=== PATIENT | male | born 1950 | race Caucasian/White ===

== ENCOUNTER 2018-01-12 16:12 | Inpatient (IN) | payer BC, MEDICARE ==
[~2018-01-12] VITALS: Ht 170.2 cm; Wt 85.7 kg
[~2018-01-12 16:12] MED LIST: ANTACID EXTRA1 EACH; BAYER ASPIRIN325 MG PO; SERTRALINE HCL50 MG PO; Z CO Q PO; Z.0.AMLODIPINE BESYL PO; Z.0.CLOPIDOGREL75 MG PO; Z.0.LISINOPRIL40 MG PO; Z.0.METOPROLOL TART2 PO; Z.0.NITROGLYCERIN0.4 SL; Z.0.PRAVASTATIN SOD8 PO; [UNRECOGNIZED DRUG - OTHER] PO
[2018-01-12] MEDS ORDERED: SODIUM CHLORIDE 0.9% 1000ML 1,000 ML IV STA (16:28)
[2018-01-12] MEDS ORDERED: HEPARIN SOD (PORCINE) 5,000 UNIT/ML VIAL IV ONE (16:30)
[2018-01-12] MEDS ORDERED: ASPIRIN 81 MG CHEW TAB PO ONE (16:30)
[2018-01-12] MEDS ORDERED: ONDANSETRON HCL INJ 2 MG/ML VIAL IV PRN (16:45)
[2018-01-12 17:02] LABS: BASOPHILS # (AUTO) 0.1 (0.0-0.1); BASOPHILS % 0.4 % (0.0-1.0); EOSINOPHILS # (AUTO) 0.1 (0.0-0.4); HEMATOCRIT 38.7 % (38.2-49.6); HEMOGLOBIN 12.8 g/dL (14.0-18.0); LYMPHOCYTES # (AUTO) 1.8 (1.0-3.2); LYMPHOCYTES % 13.6 % (18.0-39.1); MEAN CORPUSCULAR HEMOGLOBIN 29.6 pg (28-32); MEAN CORPUSCULAR HGB CONC 33.1 g/dL (31-35); MEAN CORPUSCULAR VOLUME 89.6 fL (81-99); MONOCYTES # (AUTO) 0.9 (0.2-0.8); MONOCYTES % 6.6 % (4.4-11.3); NEUTROPHILS # (AUTO) 10.4 (2.1-6.9); NEUTROPHILS % 77.9 % (38.7-80.0); PLATELET COUNT 307 x10e3/uL (140-360); RED BLOOD COUNT 4.32 x10e6/uL (4.3-5.7); RED CELL DISTRIBUTION WIDTH 13.4 % (11.7-14.4)
[2018-01-12 17:12] LABS: INR 1.03; PROTHROMBIN TIME 12.7 seconds (11.9-14.5)
[2018-01-12 17:13] LABS: PARTIAL THROMBOPLASTIN TIME 25.8 seconds (23.8-35.5)
[2018-01-12 17:22] LABS: ALBUMIN 3.7 g/dL (3.5-5.0); ANION GAP 16.2 mmol/L (8-16); CALCIUM 9.2 mg/dL (8.4-10.2); CREATINE KINASE 84 IU/L (30-200); CREATININE, SERUM 1.34 mg/dL (0.72-1.25); POTASSIUM 4.2 mmol/L (3.5-5.1)
[2018-01-12 17:28] LABS: CREATINE KINASE MB 1.5 ng/mL (0-5.0)
[2018-01-12] MEDS ORDERED: HEPARIN SOD (PORCINE) 1000 UNIT/ML SDV IV ONE (17:30)
[2018-01-12] MEDS ORDERED: HEPARIN SOD (PORCINE) 1000 UNIT/ML SDV ONE (17:34)
[2018-01-12] MEDS: HEPARIN 25,000U/0.45% NS 250ML 1,300 UNIT in SODIUM CHLORIDE 0.9% 250ML 0 ML IV SCH (17:38)
--- NOTE | 2018-01-12 18:05 | Diagnostic Imaging Report ---
EXAMINATION: CHEST SINGLE (PORTABLE) INDICATION: \S\ERMD ORDER \S\[id number] \S\1710 \S\Y COMPARISON: Chest radiograph 02/15/2012 FINDINGS: AP view TUBES and LINES: 2-lead pacemaker overlying the left upper chest with leads overlying the right atrial appendage and right ventricle. LUNGS: Lungs are well inflated. Lungs are clear. There is no evidence of pneumonia or pulmonary edema. PLEURA: No pleural effusion or pneumothorax. HEART AND MEDIASTINUM: Mildly prominent cardiac silhouette, appears increased since last exam. BONES AND SOFT TISSUES: No acute osseous lesion. Soft tissues are unremarkable. UPPER ABDOMEN: No free air under the diaphragm. IMPRESSION: Prominent cardiac silhouette without pulmonary decompensation. Signed by: Dr. Flakita Beal M.D. on 01/12/2018 6:01 PM
[2018-01-12 19:56] VITALS: BP 137/88
[2018-01-12 20:00] VITALS: BP 137/88
[2018-01-12 21:30] VITALS: BP 137/88
[2018-01-13] VITALS (7 sets, daily range): BP systolic 135–174; BP diastolic 78–95
[2018-01-13 01:18] LABS: CREATINE KINASE MB 1.2 ng/mL (0-5.0)
[2018-01-13 05:17] LABS: BASOPHILS # (AUTO) 0.1 (0.0-0.1); BASOPHILS % 0.7 % (0.0-1.0); EOSINOPHILS # (AUTO) 0.2 (0.0-0.4); EOSINOPHILS % 2.2 % (0.0-6.0); HEMATOCRIT 38.5 % (38.2-49.6); HEMOGLOBIN 12.4 g/dL (14.0-18.0); LYMPHOCYTES # (AUTO) 2.4 (1.0-3.2); MEAN CORPUSCULAR HEMOGLOBIN 29.3 pg (28-32); MEAN CORPUSCULAR HGB CONC 32.2 g/dL (31-35); MONOCYTES # (AUTO) 0.8 (0.2-0.8); NEUTROPHILS # (AUTO) 6.7 (2.1-6.9); NEUTROPHILS % 65.7 % (38.7-80.0); PLATELET COUNT 267 x10e3/uL (140-360); RED BLOOD COUNT 4.23 x10e6/uL (4.3-5.7); RED CELL DISTRIBUTION WIDTH 13.5 % (11.7-14.4)
[2018-01-13 05:39] LABS: ANION GAP 13.7 mmol/L (8-16); BLOOD UREA NITROGEN 19 mg/dL (7-26); BUN/CREATININE RATIO 19 (6-25); CALCIUM 9.1 mg/dL (8.4-10.2); CARBON DIOXIDE 25 mmol/L (22-29); CHLORIDE 107 mmol/L (98-107); CREATININE, SERUM 1.02 mg/dL (0.72-1.25); EST GLOMERULAR FILTRATION RATE > 60 ML/MIN (60-); GLUCOSE 109 mg/dL (74-118); POTASSIUM 4.7 mmol/L (3.5-5.1); SODIUM 141 mmol/L (136-145)
[2018-01-13 08:30] LABS: CREATINE KINASE MB 1.1 ng/mL (0-5.0)
--- NOTE | 2018-01-13 08:52 | Diagnostic Imaging Report ---
EXAMINATION: CHEST SINGLE (PORTABLE) INDICATION: \S\CARDIAC HX. Arterial right lower extremity clot COMPARISON: Chest x-ray 01/12/2018 FINDINGS: AP view TUBES and LINES: Left-sided pacemaker with 2 leads are intact. LUNGS: Lungs are well inflated. Lungs are clear. There is no evidence of pneumonia or pulmonary edema. PLEURA: No pleural effusion or pneumothorax. HEART AND MEDIASTINUM: The cardiomediastinal silhouette is unremarkable. BONES AND SOFT TISSUES: No acute osseous lesion. Soft tissues are unremarkable. UPPER ABDOMEN: No free air under the diaphragm. IMPRESSION: No acute thoracic abnormality. Signed by: Dr. Tomás Sena M.D. on 01/13/2018 8:48 AM
[2018-01-13] MEDS ORDERED: ASPIRIN 325 MG TAB PO SCH (09:00)
[2018-01-13] MEDS ORDERED: CLOPIDOGREL BISULFATE 75 MG TAB PO SCH (10:00)
[2018-01-13] MEDS ORDERED: SERTRALINE HCL 50 MG TAB PO SCH (10:00)
[2018-01-13] MEDS: METOPROLOL TARTRATE 25 MG TAB PO SCH ×2 (10:13→17:09)
[2018-01-13] MEDS: AMLODIPINE BESYLATE 5 MG TAB PO SCH (10:13)
[2018-01-13] MEDS ORDERED: HEPARIN 25,000U/0.45% NS 250ML 250 ML ONE (13:46)
[2018-01-13] MEDS: LISINOPRIL 20 MG TAB PO SCH (13:49)
[2018-01-13] MEDS: HEPARIN 25,000U/0.45% NS 250ML 1,300 UNIT in SODIUM CHLORIDE 0.9% 250ML 0 ML IV SCH (13:50)
--- NOTE | 2018-01-13 16:06 | Consultation ---
DATE OF CONSULTATION: January 13, 2018 CARDIOLOGY CONSULTATION REASON FOR CONSULTATION: PAD. CONSULTING PHYSICIAN: Dr. Casiano. HISTORY OF PRESENT ILLNESS: Mr. Dunlap is a patient of ours. He is 67-year-old male with a pertinent past medical history of PAD, CAD, systolic heart failure, hypertension and hypercholesterolemia, who came into the clinic yesterday with complaint of acute right lower extremity pain. He states that this pain started less than 3 days ago. States that the pain has progressively gotten worse to the point that he is unable to walk more than 200 feet without claudication and is limiting his capability of working. He is a former smoker and is seen in our office quite frequently. At the moment, he denies any pain. Denies any chest pain, shortness of breath, palpitation, cough, dizziness or syncope. He does report that since being in the hospital yesterday, his right lower extremity foot discoloration has disappeared and also no pain at this moment; however, he is limited to his bed at this time. REVIEW OF SYSTEMS: Negative except as mentioned above. PAST MEDICAL HISTORY: Includes hypertension, hypercholesterolemia, coronary artery disease, hypertension, peripheral vascular disease with critical VAHE of 0.5 yesterday and acute stenosis of right SFA artery. ALLERGIES: NO KNOWN DRUG ALLERGIES. PAST SURGICAL HISTORY: Insertion of a pacemaker. SOCIAL HISTORY: Former smoker who quit approximately 2 years ago. Denies any alcohol intake. OBJECTIVE VITAL SIGNS: Temperature 96.4, pulse 79, respiratory rate 18, blood pressure 162/78. Oxygen saturation 95% on room air. GENERAL: Alert and oriented x3, resting comfortably in bed. Does not appear to be in any acute distress. LUNGS: Clear to auscultation in the upper lobes. Diminished breath sounds in the posterior lower lobe. CARDIOVASCULAR: Regular rate and rhythm. Normal S1, S2. A 3/6 systolic ejection murmur present. S4 noted. LOWER EXTREMITIES: Absent pedal pulses and absent posterior tibial pulses. NECK: Supple. No carotid bruit noted. ABDOMEN: Rounded, soft, nontender. CARDIOVASCULAR MEDICATIONS: Metoprolol 50 mg p.o. b.i.d., amlodipine 5 mg p.o. daily, aspirin 325 p.o. daily, heparin IV drip, Plavix 75 mg p.o. daily. LABS: WBC 10.26, hemoglobin 12.4, hematocrit 38.5, platelets 267,000. Sodium 141, potassium 4.7, BUN 19, creatinine 1.02. CK-MB 1.10, troponin 0.001, PTT 67.7. Chest x-ray from today with no acute abnormalities. TELEMETRY: . IMPRESSION 1. Peripheral artery disease with acute valvular stenosis, symptoms . 2. Coronary artery disease with recent heart catheterization in January 2017, no percutaneous coronary intervention performed at that time. 3. Hypertension. 4. Former smoker. 5. Pacemaker. 6. Hypercholesterolemia. PLAN: Peripheral angiogram with intervention on Monday afternoon. Continue heparin drip and home medication at this time. Discontinue Plavix. Continue aspirin and heparin only. Maintain on close monitoring. We will continue to follow and monitor right lower extremity for any changes. Thank you for this consultation. We will continue to follow this patient very closely. Dictated By: Loly Constantino NP Job#: [id number] KAY
[2018-01-13] MEDS: RANOLAZINE 500 MG TABSR PO SCH (17:09)
--- NOTE | 2018-01-13 17:26 | History and Physical ---
PCP: Unknown. LAMINATING PRESS OPERATOR: Dr. Kuhn who sent him in. CHIEF COMPLAINT: Pulseless right leg. HISTORY OF PRESENT ILLNESS: Mr. Dunlap is a 67-year-old gentleman with a known history of peripheral arterial disease with bilateral lower extremity stents in the femoral arteries. He presented to Dr. Kuhn for routine followup and was found to have a cold pulseless right foot, not dusky in nature, but clearly very little flow below the knee. Patient was sent in for intervention. REVIEW OF SYSTEMS: He denies fever, chills, or weight loss. He denies sinus congestion or sore throat. He denies chest pain or palpitations. He denies shortness of breath, wheezing, or cough. He denies abdominal pain, nausea, vomiting, or melena. He denies dysuria or flank pain. He denies rash or pruritus. He denies joint pain or swelling. He denies headache, vertigo, or loss of consciousness. He denies bleeding or bruising. He denies depression, agitation, homicidal or suicidal ideation. PAST MEDICAL HISTORY: Significant for hypertension, coronary artery disease, and peripheral arterial disease. He has a history of bilateral lower extremity stents as well as coronary stents. MEDICATIONS: Include Norvasc 5 mg daily, Plavix 75 mg daily, metoprolol 50 mg twice daily, pravastatin 80 mg at bedtime, Zoloft 50 mg daily, lisinopril 40 mg daily, and nitroglycerin as needed. ALLERGIES: THE PATIENT HAS NO KNOWN DRUG ALLERGIES. FAMILY HISTORY: Significant for hypertension and heart disease. SOCIAL HISTORY: The patient is . Cypriot is his primary language. He quit smoking about 5 years ago. He drinks rarely. He does not use illegal drugs and he is generally independently functioning. PHYSICAL EXAM PSYCHIATRIC: He is alert and oriented x3 with normal mood and affect. CONSTITUTIONAL: He has a normal body habitus. He is in no acute distress. VITAL SIGNS: Blood pressure 162/78, pulse 79 and regular, respiratory rate 18, O2 sat 95% on room air, and temperature 96.4. HEENT: His head is atraumatic. His eyes are anicteric with clear conjunctivae. Ears and nares are without erythema or discharge. Oropharynx is clear. NECK: Supple with no mass or thyromegaly. LYMPHATIC: He has no palpable cervical, axillary, or inguinal adenopathy. CARDIOVASCULAR: His heart has a regular rate rhythm without murmur or extra sounds. He has no carotid bruit. He has no peripheral edema. He has fair capillary refill on the right foot and very weak dorsal pedal pulse on the left foot. His skin is a little pale. He has very poor capillary refill and no palpable dorsal pedal pulse. RESPIRATORY: Lungs are clear to auscultation and percussion with normal respiratory effort. GASTROINTESTINAL: His abdomen is soft without organomegaly, masses, or tenderness. He has normal bowel sounds present. CUTANEOUS: His skin is warm and dry to touch with no rash or skin breakdown. MUSCULOSKELETAL: His joints are in normal alignment without erythema or swelling. He has no calf tenderness. NEUROLOGIC: Nonfocal with intact cranial nerves and no motor or sensory deficits. DIAGNOSTIC STUDIES: Chest x-ray shows no acute disease. His troponin is 0.007, less than 0.001, 0.001 and 0.007, all negative. His chemistry shows normal electrolytes. CO2 is 21, creatinine 1.34, BUN 17 for a GFR of 53, calcium 9.2, and glucose 116. After 24 hours of hydration, the patient's electrolytes are normal. CO2 is 25, creatinine 1.02, BUN 19 for a normal GFR, calcium 9.1, glucose 109. Transaminases, bilirubin, and alk phos are normal. CBC shows a white count of 13.4 with 78% neutrophils, 14% lymphocytes, hemoglobin 12.8, hematocrit 38.7, and platelet count 307,000. Current PTT is 67.7 on a heparin drip. IMPRESSION AND PLAN 1. Critical limb ischemia of right leg due to peripheral arterial disease. The patient has been started on IV heparin drip protocol as well as aspirin, Plavix and cardiology has been consulted for intervention. 2. Hypertension with coronary artery disease. We will continue the patient's metoprolol, Norvasc, lisinopril, statin, and aspirin. 3. For prophylaxis, the patient is on IV heparin protocol as well as p.o. Pepcid for gastrointestinal prophylaxis. Job#: [id number] KAY
[2018-01-13] MEDS: PRAVASTATIN 20 MG TAB PO SCH (20:58)
[2018-01-13] MEDS ORDERED: PRAVASTATIN 20 MG TAB PO SCH (21:00)
[2018-01-14] VITALS: BP 121/77
[2018-01-14 04:00] VITALS: BP 125/95
[2018-01-14 05:42] LABS: BASOPHILS % 0.4 % (0.0-1.0); EOSINOPHILS # (AUTO) 0.2 (0.0-0.4); EOSINOPHILS % 2.5 % (0.0-6.0); HEMATOCRIT 40.2 % (38.2-49.6); HEMOGLOBIN 13.3 g/dL (14.0-18.0); LYMPHOCYTES # (AUTO) 2.1 (1.0-3.2); LYMPHOCYTES % 21.4 % (18.0-39.1); MEAN CORPUSCULAR HEMOGLOBIN 29.7 pg (28-32); MEAN CORPUSCULAR HGB CONC 33.1 g/dL (31-35); MEAN CORPUSCULAR VOLUME 89.7 fL (81-99); MONOCYTES # (AUTO) 0.7 (0.2-0.8); MONOCYTES % 6.7 % (4.4-11.3); NEUTROPHILS # (AUTO) 6.7 (2.1-6.9); NEUTROPHILS % 68.5 % (38.7-80.0); PLATELET COUNT 290 x10e3/uL (140-360); RED BLOOD COUNT 4.48 x10e6/uL (4.3-5.7); RED CELL DISTRIBUTION WIDTH 13.6 % (11.7-14.4)
[2018-01-14 05:59] LABS: ANION GAP 14.2 mmol/L (8-16); BLOOD UREA NITROGEN 18 mg/dL (7-26); BUN/CREATININE RATIO 17 (6-25); CALCIUM 9.3 mg/dL (8.4-10.2); CARBON DIOXIDE 24 mmol/L (22-29); CHLORIDE 102 mmol/L (98-107); CHOL/HDL RATIO 4.5 (3.9-4.7); CHOLESTEROL 147 MD/DL (0-199); CREATININE, SERUM 1.05 mg/dL (0.72-1.25); EST GLOMERULAR FILTRATION RATE > 60 ML/MIN (60-); GLUCOSE 105 mg/dL (74-118); HDL CHOLESTEROL 33 MG/DL (40-60); LDL CHOLESTEROL 82 MG/DL (60-130); MAGNESIUM 1.9 MG/DL (1.3-2.1); POTASSIUM 4.2 mmol/L (3.5-5.1); SODIUM 136 mmol/L (136-145); TRIGLYCERIDES 162 MG/DL (0-149)
[2018-01-14 06:20] LABS: THYROID STIMULATING HORMONE 2.079 uIU/mL (0.350-4.940)
[2018-01-14] MEDS ORDERED: POLYETHYLENE GLYCOL 3350 17 GM PACK PO ONE (07:00)
[2018-01-14] MEDS ORDERED: POLYETHYLENE GLYCOL 3350 17 GM PACK PO PRN (07:00)
[2018-01-14 08:00] VITALS: BP 151/80
[2018-01-14] MEDS ORDERED: HEPARIN 25,000U/0.45% NS 250ML 250 ML ONE (08:42)
[2018-01-14] MEDS: LISINOPRIL 20 MG TAB PO SCH (08:48)
[2018-01-14] MEDS: AMLODIPINE BESYLATE 5 MG TAB PO SCH (08:48)
[2018-01-14] MEDS: METOPROLOL TARTRATE 25 MG TAB PO SCH ×2 (08:48→17:24)
[2018-01-14] MEDS: ASPIRIN 81 MG CHEW TAB PO SCH (08:48)
[2018-01-14] MEDS: DOCUSATE SODIUM 100 MG CAP PO SCH ×2 (08:48→17:23)
[2018-01-14] MEDS: SERTRALINE HCL 50 MG TAB PO SCH (08:49)
[2018-01-14] MEDS: RANOLAZINE 500 MG TABSR PO SCH ×2 (08:49→17:24)
[2018-01-14] MEDS: HEPARIN 25,000U/0.45% NS 250ML 1,300 UNIT in SODIUM CHLORIDE 0.9% 250ML 0 ML IV SCH (10:23)
[2018-01-14 12:00] VITALS: BP 112/83
[2018-01-14] MEDS: SODIUM CHLORIDE 0.9% 1000ML 1,000 ML IV SCH (13:59)
--- NOTE | 2018-01-14 15:57 | Progress Note ---
DATE: January 14, 2018 CARDIOLOGY PROGRESS NOTE SUBJECTIVE: Patient is without any complaints. He states that he feels well. He is waiting for his procedure tomorrow. Denies any leg pain at this moment. Denies shortness of breath, chest pain, or palpitations. OBJECTIVE VITAL SIGNS: Temperature 96.2, pulse 60, respiratory rate 18, blood pressure 151/80, and oxygen saturation 96% on room air. GENERAL: Alert and oriented x3, resting comfortably in bed, does not appear to be in any acute distress. LUNGS: Clear to auscultation throughout. No wheezing. No rhonchi. Diminished. CARDIOVASCULAR: Regular rate and rhythm. Normal S1, S2. A 2/6 systolic murmur present. S1 noted. EXTREMITIES: Lower extremity, absent pedal pulses and posterior tibial pulses. ABDOMEN: Rounded, soft, nontender. MEDICATIONS 1. Ranexa 500 mg p.o. b.i.d. 2. Lisinopril 40 p.o. daily. 3. Aspirin 81 p.o. daily. 4. Metoprolol 50 p.o. b.i.d. 5. Amlodipine 5 p.o. daily. 6. Heparin IV drip. LABS: WBC 9.72, hemoglobin 13.3, hematocrit 40.2, platelets 290. Sodium 136, potassium 4.2, BUN 18, creatinine 1.05,glucose 105, PTT 70.7. TELEMETRY: Sinus rhythm. IMPRESSION 1. Peripheral arterial disease with acute femoral restenosis. 2. Coronary artery disease, status post recent catheterization in January 2017, no percutaneous coronary intervention performed at that time. 3. Hypertension. 4. Former smoker. 5. Pacemaker. 6. Hypercholesteremia. PLAN: Peripheral angiogram planned for tomorrow afternoon. Continue heparin drip at this time. Initiate IV hydration. Monitor for signs and symptoms of bleeding. We will continue to follow this patient very closely. Dictated by: Loly Constantino NP Job#: [id number] CARYL
[2018-01-14 16:00] VITALS: BP 138/85
[2018-01-14 20:00] VITALS: BP 133/74
[2018-01-14] MEDS: PRAVASTATIN 20 MG TAB PO SCH (22:08)
[2018-01-15] VITALS (29 sets, daily range): BP systolic 112–175; BP diastolic 7–96
[2018-01-15 04:45] LABS: BASOPHILS # (AUTO) 0.1 (0.0-0.1); BASOPHILS % 0.5 % (0.0-1.0); EOSINOPHILS # (AUTO) 0.2 (0.0-0.4); EOSINOPHILS % 2.6 % (0.0-6.0); HEMOGLOBIN 12.6 g/dL (14.0-18.0); LYMPHOCYTES # (AUTO) 2.2 (1.0-3.2); MEAN CORPUSCULAR HEMOGLOBIN 29.7 pg (28-32); MEAN CORPUSCULAR HGB CONC 33.2 g/dL (31-35); MEAN CORPUSCULAR VOLUME 89.6 fL (81-99); MONOCYTES # (AUTO) 0.7 (0.2-0.8); MONOCYTES % 7.6 % (4.4-11.3); NEUTROPHILS # (AUTO) 5.9 (2.1-6.9); PLATELET COUNT 280 x10e3/uL (140-360); RED BLOOD COUNT 4.24 x10e6/uL (4.3-5.7); RED CELL DISTRIBUTION WIDTH 13.5 % (11.7-14.4)
[2018-01-15 05:02] LABS: INR 1.07; PROTHROMBIN TIME 13.1 seconds (11.9-14.5)
[2018-01-15 05:03] LABS: PARTIAL THROMBOPLASTIN TIME 58.3 seconds (23.8-35.5)
[2018-01-15 05:12] LABS: ANION GAP 13.3 mmol/L (8-16); BLOOD UREA NITROGEN 17 mg/dL (7-26); BUN/CREATININE RATIO 17 (6-25); CARBON DIOXIDE 22 mmol/L (22-29); CHLORIDE 107 mmol/L (98-107); CREATININE, SERUM 1.01 mg/dL (0.72-1.25); EST GLOMERULAR FILTRATION RATE > 60 ML/MIN (60-); GLUCOSE 99 mg/dL (74-118); MAGNESIUM 1.8 MG/DL (1.3-2.1); POTASSIUM 4.3 mmol/L (3.5-5.1); SODIUM 138 mmol/L (136-145)
[2018-01-15] MEDS ORDERED: HEPARIN 25,000U/0.45% NS 250ML 1,300 UNIT in SODIUM CHLORIDE 0.9% 250ML 0 ML IV SCH (09:00)
[2018-01-15] MEDS: DOCUSATE SODIUM 100 MG CAP PO SCH ×2 (09:00→20:58)
[2018-01-15] MEDS: RANOLAZINE 500 MG TABSR PO SCH ×2 (09:00→20:59)
[2018-01-15] MEDS: AMLODIPINE BESYLATE 5 MG TAB PO SCH (09:00)
[2018-01-15] MEDS: METOPROLOL TARTRATE 25 MG TAB PO SCH ×2 (09:00→20:58)
[2018-01-15] MEDS: SODIUM CHLORIDE 0.9% 1000ML 1,000 ML IV SCH ×2 (10:40→21:00)
--- NOTE | 2018-01-15 11:57 | Progress Note ---
DATE: January 15, 2018 CARDIOLOGY PROGRESS NOTE SUBJECTIVE: Patient denies chest pain or shortness of breath. OBJECTIVE VITAL SIGNS: Temperature 97.4 degrees, pulse 61, respiratory rate 18, blood pressure 160/80, and oxygen saturation 93% on room air. GENERAL: Awake, alert, in no acute distress. LUNGS: Clear to auscultation bilaterally. No wheezes or crackles. CARDIOVASCULAR: Normal rate. Regular rhythm. No murmur. Normal S1 and S2. ABDOMEN: Soft and nontender. Absent pedal and posterior tibial pulses. CARDIAC MEDICATIONS 1. Ranolazine 500 mg p.o. b.i.d. 2. Heparin drip. 3. Metoprolol tartrate 50 mg p.o. b.i.d. 4. Lisinopril 40 mg p.o. daily. 5. Aspirin 81 mg p.o. daily. 6. Amlodipine 5 mg p.o. daily. LABS: WBC 9.11, hemoglobin 12.6, hematocrit 38, platelets 280. Sodium 138, potassium 4.3, chloride 107, CO2 of 22, BUN 17, and creatinine 1.01. TELEMETRY: Normal sinus rhythm. IMPRESSION 1. Peripheral arterial disease with acute femoral restenosis. 2. Coronary artery disease, status post recent catheterization in January 2017, no intervention performed at that time. 3. Hypertension. 4. Status post pacemaker. 5. Hypercholesterolemia. 6. Prior tobacco use. RECOMMENDATIONS: Patient is planned for peripheral angiogram later today. Continue with heparin drip. Further recommendations pending angiogram findings. Thank you for this consult. We will continue to follow. Job#: [id number] ACE
[2018-01-15] MEDS ORDERED: HEPARIN SOD (PORCINE) 1000 UNIT/ML 30ML ONE (12:37)
[2018-01-15] MEDS ORDERED: MIDAZOLAM HCL 2 MG/2 ML VIAL ONE ×2 (12:38→12:58)
[2018-01-15] MEDS ORDERED: FENTANYL CITRATE/PF 100MCG/2 ML INJ ONE (12:38)
[2018-01-15] MEDS ORDERED: LIDOCAINE HCL 2% LOCAL 20 ML VIAL ONE (12:38)
[2018-01-15] MEDS ORDERED: HEPARIN SOD/SOD CHLORIDE 2,000 ML ONE (12:38)
[2018-01-15] MEDS ORDERED: SODIUM CHLORIDE 0.9% 1000ML 0 ML ONE (12:38)
[2018-01-15] MEDS ORDERED: IOPAMIDOL 300MG/ML 100 ML INFUS..BTL IV ONE ×2 (12:38→13:16)
[2018-01-15] MEDS ORDERED: NITROGLYCERIN/D5W 200 MCG/ML 250 ML ONE (12:46)
[2018-01-15] MEDS ORDERED: VERAPAMIL HCL 2.5 MG/ML 2 ML VIAL ONE (13:12)
[2018-01-15] MEDS ORDERED: SODIUM CHLORIDE 0.9% 1000ML 1,000 ML ONE (13:13)
[2018-01-15] MEDS ORDERED: MORPHINE SULFATE 2 MG/ML SYR ONE (15:18)
--- NOTE | 2018-01-15 19:25 | Operative Report ---
DATE OF PROCEDURE: January 15, 2018 INDICATIONS: Peripheral arterial disease, critical limb ischemia of the right lower extremity. PROCEDURES PERFORMED 1. Abdominal aorta catheter placement and abdominal aortogram. 2. Bilateral lower extremity angiograms. 3. Selective catheter placement from the left femoral artery to the right superficial femoral artery. 4. Atherectomy, drug-coated balloon angioplasty and stent placement to the right femoral artery. 5. Secondary thrombectomy of the right femoral artery. 6. Additional 3rd-order catheter placement from the left femoral artery to the right anterior tibial artery. COMPLICATIONS: None. BLOOD LOSS: 20 mL. RECOMMENDATIONS: Triple antiplatelet/coagulant therapy for 3 months followed by dual antiplatelet therapy for life. Access was obtained in the left femoral artery. A 6-Slovak sheath was placed. Abdominal aortogram demonstrated mild disease in the abdominal aorta with a small infrarenal abdominal aortic aneurysm. Iliac had mild disease. Proximal femoral artery on the right leg was occluded. Left leg was widely patent. Left leg angiography demonstrated patent stents in the left superficial femoral artery. The catheter was then advanced from the left femoral artery to the right superficial femoral artery (3rd-order catheter placement). Complete occlusion of the right was noted. Infrapopliteal vessels were not well seen. The catheter was then advanced from the left femoral artery to the right anterior tibial artery confirming 3-vessel runoff to the right foot. A decision was made to intervene on the right femoral artery. The patient received 8,000 units of intravenous heparin with an ACT of 283. The lesions were crossed using a Roadrunner wire, and then orbital atherectomy using a 2-mm classic crown was performed. Large amounts of visible thrombus necessitating manual aspiration and thrombectomy was needed. Serial balloon angioplasty with 6-mm drug-coated balloons was performed. However the proximal end of the stent in the proximal right superficial femoral artery continued to have extreme recoil. A self balloon expandable 7 x 26 mm stent was deployed at 14 atmospheres with excellent end result, 3-vessel runoff to the right foot. Left groin sheath was exchanged to a short sheath secured in place for removal under manual pressure. Job#: [id number]
[2018-01-15] MEDS: MORPHINE SULFATE INJ 4 MG/ML INJ IV PRN (19:39)
[2018-01-15] MEDS: PRAVASTATIN 20 MG TAB PO SCH (21:00)
[2018-01-16] VITALS (37 sets, daily range): BP systolic 92–165; BP diastolic 62–97
[2018-01-16] MEDS: MORPHINE SULFATE INJ 4 MG/ML INJ IV PRN ×5 (00:08→18:18)
[2018-01-16 05:09] LABS: BASOPHILS % 0.4 % (0.0-1.0); EOSINOPHILS # (AUTO) 0.2 (0.0-0.4); HEMATOCRIT 36.6 % (38.2-49.6); HEMOGLOBIN 11.8 g/dL (14.0-18.0); LYMPHOCYTES # (AUTO) 1.5 (1.0-3.2); LYMPHOCYTES % 16.6 % (18.0-39.1); MEAN CORPUSCULAR HEMOGLOBIN 29.4 pg (28-32); MEAN CORPUSCULAR HGB CONC 32.2 g/dL (31-35); MONOCYTES # (AUTO) 0.7 (0.2-0.8); MONOCYTES % 7.8 % (4.4-11.3); NEUTROPHILS # (AUTO) 6.7 (2.1-6.9); NEUTROPHILS % 72.6 % (38.7-80.0); PLATELET COUNT 246 x10e3/uL (140-360); RED BLOOD COUNT 4.02 x10e6/uL (4.3-5.7); RED CELL DISTRIBUTION WIDTH 13.7 % (11.7-14.4)
[2018-01-16 05:26] LABS: ANION GAP 14.5 mmol/L (8-16); BLOOD UREA NITROGEN 16 mg/dL (7-26); BUN/CREATININE RATIO 16 (6-25); CARBON DIOXIDE 22 mmol/L (22-29); CHLORIDE 107 mmol/L (98-107); CREATININE, SERUM 1.03 mg/dL (0.72-1.25); EST GLOMERULAR FILTRATION RATE > 60 ML/MIN (60-); GLUCOSE 92 mg/dL (74-118); POTASSIUM 4.5 mmol/L (3.5-5.1); SODIUM 139 mmol/L (136-145)
[2018-01-16] MEDS: HEPARIN 25,000 UNIT/D5W 250ML 250 ML IV SCH (07:12)
[2018-01-16] MEDS: SERTRALINE HCL 50 MG TAB PO SCH ×2 (09:00→09:08)
[2018-01-16] MEDS: ASPIRIN 81 MG CHEW TAB PO SCH ×2 (09:00→09:07)
[2018-01-16] MEDS: LISINOPRIL 20 MG TAB PO SCH ×2 (09:00→09:08)
[2018-01-16] MEDS: AMLODIPINE BESYLATE 5 MG TAB PO SCH (09:08)
[2018-01-16] MEDS: METOPROLOL TARTRATE 25 MG TAB PO SCH ×3 (09:08→17:57)
[2018-01-16] MEDS: DOCUSATE SODIUM 100 MG CAP PO SCH ×2 (09:08→17:56)
[2018-01-16] MEDS: RANOLAZINE 500 MG TABSR PO SCH ×2 (09:08→17:57)
[2018-01-16] MEDS ORDERED: ALTEPLASE 50 MG/VIAL (29 MILLION IU) IV ONE (09:46)
[2018-01-16] MEDS ORDERED: SODIUM CHLORIDE 0.9% 500ML 500 ML ONE (09:47)
[2018-01-16] MEDS ORDERED: ALTEPLASE RECOMBINANT 2 MG/2 ML VIAL ONE (09:51)
[2018-01-16] MEDS ORDERED: HEPARIN SOD/SOD CHLORIDE 2,000 ML ONE (10:01)
[2018-01-16] MEDS ORDERED: HEPARIN SOD (PORCINE) 1000 UNIT/ML 30ML ONE (10:01)
[2018-01-16] MEDS ORDERED: LIDOCAINE HCL 2% LOCAL 20 ML VIAL ONE (10:01)
[2018-01-16] MEDS ORDERED: MIDAZOLAM HCL 2 MG/2 ML VIAL ONE (10:02)
[2018-01-16] MEDS ORDERED: IOPAMIDOL 300MG/ML 100 ML INFUS..BTL IV ONE (10:02)
[2018-01-16] MEDS ORDERED: FENTANYL CITRATE/PF 100MCG/2 ML INJ ONE (10:02)
[2018-01-16] MEDS ORDERED: SODIUM CHLORIDE 0.9% 1000ML 1,000 ML ONE (10:02)
[2018-01-16] MEDS ORDERED: NITROGLYCERIN/D5W 200 MCG/ML 0 ML ONE (10:08)
[2018-01-16] MEDS ORDERED: MORPHINE SULFATE INJ 4 MG/ML INJ ONE (11:52)
--- NOTE | 2018-01-16 12:43 | Progress Note ---
DATE: January 16, 2018 CARDIOLOGY PROGRESS NOTE SUBJECTIVE: Mr. Dunlap had sudden onset of coolness and severe pain in his right lower extremity. His pulses are not palpable. OBJECTIVE VITALS: Afebrile. Heart rate 88. Blood pressure is 108/70. CARDIOVASCULAR: Regular rhythm. No gallops. LUNGS: Clear to auscultation bilaterally. EXTREMITIES: Right foot is cold. No pulses. ASSESSMENT: Acute thrombosis of the right femoral artery stents. PLAN: Emergency thrombectomy and thrombolysis will be performed. The risks, benefits and alternatives were discussed with the patient. He is agreeable for the same. Job#: [id number]
--- NOTE | 2018-01-16 13:08 | Operative Report ---
DATE OF PROCEDURE: January 16, 2018 INDICATIONS: Critical limb ischemia with stent thrombosis in the right femoral artery. PROCEDURES PERFORMED 1. Third-order catheter placement from the left femoral artery to the right superficial femoral artery with unilateral extremity angiogram. 2. Primary thrombectomy of the right superficial femoral artery. 3. Initiation of transcatheter lysis. COMPLICATIONS: None. RECOMMENDATIONS: Transcatheter lysis with tPA as well as heparin with reassessment of reperfusion in the next 12 to 24 hours. Access was obtained in the left femoral artery. Sheath was extended to the right femoral artery (3rd-order catheter placement). Complete thrombosis of the right femoral artery stents was noted. The stents were crossed using a Roadrunner wire, and primary thrombectomy with aspiration was performed. Residual thrombus remained necessitating transcatheter lysis. That was initiated using a 40-cm catheter. The sheath was secured in place. Patient transferred to ICU in stable condition. Job#: [id number]
[2018-01-16] MEDS: HYDROMORPHONE 2MG/ML 2 MG/ML ML IV PRN ×2 (17:25→21:16)
[2018-01-16] MEDS ORDERED: HYDROMORPHONE 1MG/1ML INJ ONE (17:25)
[2018-01-16] MEDS: SODIUM CHLORIDE 0.9% IV SCH (17:27)
[2018-01-16] MEDS: ALTEPLASE RECOMBINANT IV SCH (17:27)
[2018-01-16 17:39] LABS: BASOPHILS % 0.4 % (0.0-1.0); EOSINOPHILS # (AUTO) 0.3 (0.0-0.4); EOSINOPHILS % 2.7 % (0.0-6.0); HEMATOCRIT 36.3 % (38.2-49.6); HEMOGLOBIN 11.9 g/dL (14.0-18.0); LYMPHOCYTES # (AUTO) 2.2 (1.0-3.2); LYMPHOCYTES % 23.4 % (18.0-39.1); MEAN CORPUSCULAR HEMOGLOBIN 30.1 pg (28-32); MEAN CORPUSCULAR HGB CONC 32.8 g/dL (31-35); MEAN CORPUSCULAR VOLUME 91.9 fL (81-99); MONOCYTES # (AUTO) 0.8 (0.2-0.8); MONOCYTES % 8.4 % (4.4-11.3); NEUTROPHILS # (AUTO) 6.1 (2.1-6.9); NEUTROPHILS % 64.8 % (38.7-80.0); PLATELET COUNT 233 x10e3/uL (140-360); RED BLOOD COUNT 3.95 x10e6/uL (4.3-5.7); RED CELL DISTRIBUTION WIDTH 13.8 % (11.7-14.4)
[2018-01-16] MEDS ORDERED: HYDROCODONE/APAP 7.5MG-325MG 1 EA TAB PO PRN (17:45)
[2018-01-16] MEDS ORDERED: HYDRALAZINE HCL 20 MG/ML VIAL IV PRN (17:45)
[2018-01-16] MEDS: FAMOTIDINE 20 MG TAB PO SCH (17:56)
[2018-01-16] MEDS: SODIUM CHLORIDE 0.9% 1000ML 1,000 ML IV SCH (17:57)
[2018-01-16 18:00] LABS: ANION GAP 15.8 mmol/L (8-16); BLOOD UREA NITROGEN 18 mg/dL (7-26); BUN/CREATININE RATIO 20 (6-25); CALCIUM 8.7 mg/dL (8.4-10.2); CARBON DIOXIDE 21 mmol/L (22-29); CHLORIDE 106 mmol/L (98-107); CREATININE, SERUM 0.89 mg/dL (0.72-1.25); EST GLOMERULAR FILTRATION RATE > 60 ML/MIN (60-); GLUCOSE 84 mg/dL (74-118); POTASSIUM 4.8 mmol/L (3.5-5.1); SODIUM 138 mmol/L (136-145)
[2018-01-16] MEDS ORDERED: ALTEPLASE RECOMBINANT 2 MG in SODIUM CHLORIDE 0.9% 50ML 50 ML IV SCH (18:30)
[2018-01-16] MEDS ORDERED: SODIUM CHLORIDE 0.9% IV SCH (20:00)
[2018-01-16] MEDS ORDERED: ALTEPLASE RECOMBINANT IV SCH (20:00)
[2018-01-16 20:10] LABS: BASOPHILS # (AUTO) 0.1 (0.0-0.1); BASOPHILS % 0.4 % (0.0-1.0); EOSINOPHILS # (AUTO) 0.1 (0.0-0.4); EOSINOPHILS % 0.8 % (0.0-6.0); HEMATOCRIT 37.3 % (38.2-49.6); HEMOGLOBIN 12.1 g/dL (14.0-18.0); LYMPHOCYTES # (AUTO) 1.5 (1.0-3.2); LYMPHOCYTES % 9.1 % (18.0-39.1); MEAN CORPUSCULAR HEMOGLOBIN 29.7 pg (28-32); MEAN CORPUSCULAR HGB CONC 32.4 g/dL (31-35); MEAN CORPUSCULAR VOLUME 91.6 fL (81-99); MONOCYTES % 6.3 % (4.4-11.3); NEUTROPHILS # (AUTO) 13.5 (2.1-6.9); NEUTROPHILS % 82.7 % (38.7-80.0); PLATELET COUNT 213 x10e3/uL (140-360); RED BLOOD COUNT 4.07 x10e6/uL (4.3-5.7); RED CELL DISTRIBUTION WIDTH 13.7 % (11.7-14.4)
[2018-01-16 20:19] LABS: ANION GAP 14.7 mmol/L (8-16); BLOOD UREA NITROGEN 20 mg/dL (7-26); BUN/CREATININE RATIO 19 (6-25); CARBON DIOXIDE 23 mmol/L (22-29); CHLORIDE 106 mmol/L (98-107); CREATININE, SERUM 1.05 mg/dL (0.72-1.25); EST GLOMERULAR FILTRATION RATE > 60 ML/MIN (60-); GLUCOSE 142 mg/dL (74-118); POTASSIUM 4.7 mmol/L (3.5-5.1); SODIUM 139 mmol/L (136-145)
[2018-01-16] MEDS: PRAVASTATIN 20 MG TAB PO SCH (21:45)
[2018-01-17] VITALS (62 sets, daily range): BP systolic 49–147; BP diastolic 26–104
[2018-01-17] MEDS: SODIUM CHLORIDE 0.9% IV SCH ×4 (00:06→12:00)
[2018-01-17] MEDS: ALTEPLASE RECOMBINANT IV SCH ×4 (00:06→12:00)
[2018-01-17 03:30] LABS: BASOPHILS % 0.2 % (0.0-1.0); EOSINOPHILS % 0.2 % (0.0-6.0); HEMATOCRIT 28.6 % (38.2-49.6); LYMPHOCYTES # (AUTO) 1.8 (1.0-3.2); LYMPHOCYTES % 14.4 % (18.0-39.1); MEAN CORPUSCULAR HEMOGLOBIN 29.5 pg (28-32); MEAN CORPUSCULAR HGB CONC 31.1 g/dL (31-35); MEAN CORPUSCULAR VOLUME 94.7 fL (81-99); MONOCYTES # (AUTO) 0.5 (0.2-0.8); MONOCYTES % 3.9 % (4.4-11.3); NEUTROPHILS # (AUTO) 10.2 (2.1-6.9); NEUTROPHILS % 80.4 % (38.7-80.0); PLATELET COUNT 196 x10e3/uL (140-360); RED BLOOD COUNT 3.02 x10e6/uL (4.3-5.7); RED CELL DISTRIBUTION WIDTH 13.9 % (11.7-14.4)
[2018-01-17] MEDS ORDERED: NOREPINEPHRINE INJ 4MG/4ML 8 MG in DEXTROSE 5% 250ML 242 ML IV SCH (03:30)
[2018-01-17] MEDS ORDERED: SODIUM CHLORIDE 0.9% 250ML 250 ML IV ONE (03:30)
[2018-01-17] MEDS: SODIUM CHLORIDE 0.9% 1000ML 1,000 ML IV SCH ×2 (03:30→12:18)
[2018-01-17 03:34] LABS: HEMOGLOBIN 8.9 g/dL (14.0-18.0)
[2018-01-17] MEDS ORDERED: NOREPINEPHRINE 8 MG/D5W 250 ML 250 ML ONE ×2 (03:35→13:46)
[2018-01-17 03:47] LABS: CALCIUM 7.8 mg/dL (8.4-10.2); CREATININE, SERUM 1.83 mg/dL (0.72-1.25); MAGNESIUM 1.9 MG/DL (1.3-2.1)
[2018-01-17] MEDS: HEPARIN 25,000 UNIT/D5W 250ML 250 ML IV SCH ×2 (03:50→09:30)
[2018-01-17 04:04] LABS: BILIRUBIN,URINE 1+ (NEGATIVE); CLARITY,URINE TURBID (CLEAR); COLOR,URINE BROWN (YELLOW); KETONES,URINE NEGATIVE (NEGATIVE); LEUKOCYTE ESTERASE ,URINE 2+ (NEGATIVE); NITRITE,URINE POSITIVE (NEGATIVE); PROTEIN,URINE DIPSTICK 2+ (NEGATIVE); URINE UROBILINOGEN 1 mg/dL (0.2 - 1)
[2018-01-17 04:05] LABS: BACTERIA,URINE MODERATE /HPF; RBC,URINE >50 /HPF (0-5)
[2018-01-17 05:09] LABS: ANION GAP 15.7 mmol/L (8-16); CALCIUM 7.6 mg/dL (8.4-10.2); CREATININE, SERUM 1.89 mg/dL (0.72-1.25); POTASSIUM 5.7 mmol/L (3.5-5.1)
[2018-01-17] MEDS: FAMOTIDINE 20 MG TAB PO SCH (07:30)
--- NOTE | 2018-01-17 07:43 | Diagnostic Imaging Report ---
Exam: Abdominal film Clinical History: Rule out retroperitoneal bleed Comparison: None. DISCUSSION: A left common femoral approach arterial sheath tip terminates over the expected region of the proximal right common femoral artery. Left external iliac arterial stent. Bowel gas pattern shows no dilated, air-filled loops of bowel. No mass effect or organomegaly. The psoas muscular shadows are symmetric. No acute osseous abnormality. Degenerative disc changes of the lumbar spine. IMPRESSION: Nonobstructive bowel gas pattern. Symmetric psoas muscular shadows without mass effect or abnormal soft tissue density. Please note that plain radiography is insensitive for detection of retroperitoneal hematoma, and noncontrast CT scan of the abdomen and pelvis should be considered for further evaluation if clinically warranted. Arterial sheath in position as described. Signed by: Dr. Ron Bowen M.D. on 01/17/2018 7:39 AM
[2018-01-17] MEDS: METOPROLOL TARTRATE 25 MG TAB PO SCH (09:00)
[2018-01-17] MEDS: LISINOPRIL 20 MG TAB PO SCH (09:00)
[2018-01-17] MEDS: SERTRALINE HCL 50 MG TAB PO SCH (09:00)
[2018-01-17] MEDS: AMLODIPINE BESYLATE 5 MG TAB PO SCH (09:00)
[2018-01-17] MEDS: RANOLAZINE 500 MG TABSR PO SCH (09:00)
[2018-01-17] MEDS: DOCUSATE SODIUM 100 MG CAP PO SCH (09:00)
[2018-01-17] MEDS: HYDROMORPHONE 2MG/ML 2 MG/ML ML IV PRN (09:15)
--- NOTE | 2018-01-17 09:44 | Diagnostic Imaging Report ---
PROCEDURE: A single AP view of the chest. COMPARISON: Patients [facility], DX, CHEST SINGLE (PORTABLE), 01/13/2018, 6:55. INDICATIONS: CENTRAL LINE PLACEMENT FINDINGS: Lines/tubes: A right IJ central line is now present with its tip overlying the SVC. Unchanged appearance of a dual lead left left-sided cardiac device. Lungs: The lungs are well inflated and clear. There is no evidence of pneumonia or pulmonary edema. Pleura: There is no pleural effusion or pneumothorax. Heart and mediastinum: The heart and the mediastinum are unremarkable. Bones: No acute bony abnormality. IMPRESSION: 1. No acute cardiopulmonary disease. 2. Acceptable position of a right IJ central line. Jony Garcias D.O. Dictated by: Jony Garcias D.O. on 01/17/2018 at 9:51 Electronically approved by: Jony Garcias D.O. on 01/17/2018 at 9:51
--- NOTE | 2018-01-17 10:44 | Progress Note ---
DATE: January 17, 2018 CARDIOLOGY PROGRESS NOTE SUBJECTIVE: Overnight, the patient developed hematoma in his left groin and hypotension, which required discontinuation of his tPA infusion for his right lower extremity thrombus and ischemia, which resulted in his ischemic pain returning overnight. Started on Levophed overnight for hypotension and given 2 units of blood starting this morning. The patient complains of right lower extremity pain that is 10/10 in severity this morning. He is able to move his right lower extremity. However, his sensation is somewhat diminished compared to the left. REVIEW OF SYSTEMS: A 10-point review of systems was as per the HPI, otherwise negative. OBJECTIVE VITAL SIGNS: Temperature 97.5, pulse 71, respiratory rate 18, blood pressure 101/58, satting 98% on nasal cannula. The patient is currently on vasopressors. GENERAL: Elderly white man in mild distress. CARDIOVASCULAR: PMI nondisplaced. Normal S1 and S2. No murmurs, rubs or gallops. Palpable carotid pulses. Palpable radial pulses. EXTREMITIES: Right lower extremity pulses are not palpable or dopplerable in the foot. Dopplerable pulse in the right common femoral. Hematoma over the left lower common femoral artery with pressure dressing in place. Size of a softball. The left lower extremity pulses are dopplerable. Note, arterial sheath in place in the left groin. ABDOMEN: Soft, nontender and nondistended. LUNGS: Clear to auscultation bilaterally on limited anterior exam. NEURO/PSYCH: The patient is alert and oriented to person, place and time. Normal affect. LABORATORY DATA: Reviewed. Notable for white count of 12.6, which has improved from 16 yesterday, hemoglobin dropped from 12 yesterday to 8.9 this morning pending transfusion. Potassium is 5.7, creatinine 1.9. He has metabolic acidosis with bicarb of 18. Urinalysis shows 4+ blood with greater than 50 rbcs with bacteria and positive nitrites as well in the urine. Imaging data reviewed. Telemetry data reviewed and shows sinus rhythm. ASSESSMENT AND PLAN 1. Peripheral arterial disease. 2. Acute limb ischemia of the right lower extremity. 3. Right common femoral occlusion with thrombus. 4. Left groin hematoma. 5. Hypotension. 6. Hyperkalemia. 7. Acute kidney injury. 8. Metabolic acidosis. PLAN: TPA for the right lower extremity thrombus had to be stopped overnight due to bleeding in the left groin. Now, he is getting blood and hemoglobin is stable. Will resume heparin given acute ischemia of the right lower extremity that is ongoing. Discussed the case with Dr. Kuhn. He plans to take the patient to the slab stripper this morning for further thrombectomy of the right lower extremity, as well as possible covered stent of the left common femoral artery. The patient is critically ill at this point with significant limb ischemia. Will manage associated metabolic issues. Consult renal. May need hemodialysis for hyperkalemia. Will continue to follow closely. A right IJ central venous catheter was placed this morning by me under ultrasound guidance to facilitate critical care. Thank you for this consult. Will continue to follow very closely. Job#: [id number] LU
[2018-01-17] MEDS: ASPIRIN 81 MG CHEW TAB PO SCH (12:19)
[2018-01-17] MEDS ORDERED: LIDOCAINE HCL 2% LOCAL 20 ML VIAL ONE (13:36)
[2018-01-17] MEDS ORDERED: HEPARIN SOD/SOD CHLORIDE 2,000 ML ONE (13:36)
[2018-01-17] MEDS ORDERED: IOPAMIDOL 300MG/ML 100 ML INFUS..BTL IV ONE ×2 (13:46→14:22)
[2018-01-17] MEDS ORDERED: FENTANYL CITRATE/PF 100MCG/2 ML INJ ONE (13:47)
[2018-01-17] MEDS ORDERED: MIDAZOLAM HCL 2 MG/2 ML VIAL ONE ×2 (13:47→14:05)
[2018-01-17] MEDS ORDERED: SODIUM CHLORIDE 0.9% 1000ML 1,000 ML ONE (13:47)
[2018-01-17] MEDS ORDERED: HEPARIN SOD (PORCINE) 1000 UNIT/ML 30ML ONE (14:01)
[2018-01-17] MEDS ORDERED: VANCOMYCIN 1GM/NS 250 ML 250 ML ONE (14:29)
[2018-01-17] MEDS ORDERED: SODIUM CHLORIDE 0.9% 100 ML 100 ML ONE (14:32)
[2018-01-17] MEDS ORDERED: PROTAMINE SULFATE 10 MG/ML 5 ML VIAL ONE (14:32)
[2018-01-17 15:02] LABS: BASOPHILS % 0.2 % (0.0-1.0); EOSINOPHILS % 0.2 % (0.0-6.0); LYMPHOCYTES # (AUTO) 1.6 (1.0-3.2); MEAN CORPUSCULAR HEMOGLOBIN 29.5 pg (28-32); MEAN CORPUSCULAR HGB CONC 32.3 g/dL (31-35); MEAN CORPUSCULAR VOLUME 91.4 fL (81-99); MONOCYTES # (AUTO) 1.9 (0.2-0.8); MONOCYTES % 10.3 % (4.4-11.3); NEUTROPHILS # (AUTO) 14.4 (2.1-6.9); PLATELET COUNT 100 x10e3/uL (140-360); RED BLOOD COUNT 3.39 x10e6/uL (4.3-5.7); RED CELL DISTRIBUTION WIDTH 14.5 % (11.7-14.4)
[2018-01-17] MEDS ORDERED: OYST-CAL-D 500MG TABLET PO SCH (17:00)
[2018-01-17 17:58] LABS: LYMPHOCYTES % (MANUAL) 9 % (19-48); MONOCYTES % (MANUAL) 6 % (3.4-9.0); NEUTROPHILS % (MANUAL) 85 % (40-74); NUCLEATED RED BLOOD CELLS 1; PLATELET ESTIMATE SLIGHTLY DECREASED; PLATELET MORPHOLOGY COMMENT NORMAL; RBC MORPHOLOGY COMMENT NORMAL
[2018-01-17] MEDS ORDERED: CEFTRIAXONE SOD 1 GM VIAL IV SCH (18:15)
--- NOTE | 2018-01-21 13:25 | Operative Report ---
DATE OF PROCEDURE: January 17, 2018 INDICATIONS: Peripheral arterial disease with critical limb ischemia of the right lower extremity. PROCEDURES PERFORMED 1. Third-order catheter placement from the left femoral artery to the right superficial femoral artery with unilateral extremity angiogram. 2. Primary thrombectomy of the right anterior and posterior tibial as well as femoral and popliteal arteries. 3. Removal of transcatheter lysis catheter. 4. Angioplasty of the right anterior and posterior tibial arteries, popliteal artery as well as the femoral and popliteal arteries. COMPLICATIONS: Unable to restore flow. RECOMMENDATIONS: Surgical thrombectomy and bypass. BLOOD LOSS: 50 mL. Existing sheath from the left femoral artery to the right femoral artery was used for injection into the right lower extremity with complete occlusion and minimal reperfusion of the right femoral artery stent. Primary thrombectomy using Angio-Jet was performed in the femoral and popliteal as well as anterior and posterior tibial arteries. The transcatheter lysis catheter was removed. Minimal flow was restored. Balloon angioplasty with a 4-mm balloon was performed of the anterior and posterior tibial arteries as well as the femoral and popliteal arteries without buddhism of flow. Left groin was repaired using Perclose. The patient was transferred to a [facility] for surgical thrombectomy and fem-pop bypass. MONSERRAT MEDINA MD Job#: [id number]
--- NOTE | 2018-02-01 07:14 | Discharge Summary ---
ADMISSION DIAGNOSES 1. Critical ischemia of right lower extremity. 2. Hypertension with coronary artery disease. DISCHARGE DIAGNOSES 1. Critical ischemia of right lower extremity. 2. Hypertension with coronary artery disease. 3. Hyperlipidemia. 4. Hyperkalemia. 5. Acute kidney injury. 6. Hypocalcemia. 7. Urinary tract infection due to Escherichia coli and Citrobacter. HISTORY: Patient has a history of hypertension, CAD, PAD, surgical history of bilateral lower extremity stents as well as coronary stents. HOSPITAL COURSE: A 67-year-old male with known history of PAD with bilateral lower extremity stents in the femoral arteries, presented to Dr. Kuhn for routine followup and was found to have a cold, pulseless right foot, not dusky in nature but clearly very little blood flow below the knee. Patient was admitted to the hospital and started on IV heparin, aspirin, and Plavix. Cardiology consulted. Patient resumed on metoprolol, Norvasc, lisinopril, statin, and aspirin. Patient went to the lab analyst initially on 01/15. Patient had intervention on the right femoral artery. Cardiology performed abdominal aorta catheter placement, abdominal aortogram, bilateral lower extremity angiograms, selective catheter placement from the left femoral to the right superficial femoral artery, arthrectomy, drug-coated balloon angioplasty and stent to the right femoral artery, secondary thrombectomy of the right femoral artery, additional third-order catheter placement from the left femoral artery to the right anterior tibial artery. After the initial lab analyst procedure, the patient's foot became more cold. He was then sent back to the lab analyst on January 16 and had a third-order catheter placement from the left femoral to the right superficial with unilateral extremity angiogram. Primary thrombectomy of the right superficial femoral artery and initiation of transcatheter lysis. He was moved to ICU, started on tPA as well as the heparin drip. Planned for going back to the lab analyst for a third time due to the right lower extremity being cold starting at the knee. In the middle of the night, the patient had acute femoral bleed. Hemoglobin dropped from 12.1 to 8.9. Patient received 2 units of PRBCs on the . Hemoglobin came back up to 10. Due to the hypovolemia, the potassium was 5.7. The patient was started on IV fluids due to the hypovolemia and GEOVANNI. Patient was found to have E. coli and Citrobacter in the urine. Cultures were pending prior to transfer. Patient not started on antibiotics due to pending culture. At last assessment of the patient, the tPA was discontinued per cardiology due to the PTT being up to 236. Patient went back to the lab analyst for a third time per cardiology and had a third-order catheter placement from left femoral to the right superficial with unilateral extremity angiogram, primary thrombectomy of the right anterior and posterior tibial as well as femoral and popliteal arteries, removal of transcatheter lysis catheter, angioplasty of right anterior and posterior tibial artery, popliteal artery, as well as femoral and popliteal arteries. Per cardiology, patient was transferred to [facility] for surgical thrombectomy and fem-pop bypass. Dictated by Jojo Post NP Job#: [id number] JOANNA
== END 2018-01-17 16:01 | disposition short-term general hospital (02) | DRG 271 ==
LOC: ER 16:12 → ERHOLD 17:02 → MED/SURG2 18:43 → ICU 01-16 12:42
PROVIDERS: ADMIT Internal Medicine; ATTEND Internal Medicine
PROC: 047K3D1 Dilation of Right Femoral Artery with Intraluminal Device, using Drug-Coated Balloon, Percutaneous Approach (ICD-10-PCS; principal; 2018-01-15)
PROC: 04CK3ZZ Extirpation of Matter from Right Femoral Artery, Percutaneous Approach (ICD-10-PCS; 2018-01-15)
PROC: 04CK3ZZ Extirpation of Matter from Right Femoral Artery, Percutaneous Approach (ICD-10-PCS; 2018-01-16)
PROC: 3E03317 Introduction of Other Thrombolytic into Peripheral Vein, Percutaneous Approach (ICD-10-PCS; 2018-01-16)
PROC: [UNRECOGNIZED PROCEDURE] (2018-01-17)
PROC: [UNRECOGNIZED PROCEDURE] (2018-01-17)
PROC: [UNRECOGNIZED PROCEDURE] (2018-01-17)
PROC: [UNRECOGNIZED PROCEDURE] (2018-01-17)
PROC: 02HV33Z Insertion of Infusion Device into Superior Vena Cava, Percutaneous Approach (ICD-10-PCS; 2018-01-17)
PROC: 30233N1 Transfusion of Nonautologous Red Blood Cells into Peripheral Vein, Percutaneous Approach (ICD-10-PCS; 2018-01-17)
PROC: 04PY33Z Removal of Infusion Device from Lower Artery, Percutaneous Approach (ICD-10-PCS; 2018-01-17)
DX: I82.431 Acute embolism and thrombosis of right popliteal vein (principal); T82.858A Stenosis of other vascular prosthetic devices, implants and grafts, initial encounter; N17.9 Acute kidney failure, unspecified; E87.2 Acidosis; I50.20 Unspecified systolic (congestive) heart failure; I97.638 Postprocedural hematoma of a circulatory system organ or structure following other circulatory system procedure; N39.0 Urinary tract infection, site not specified; I73.89 Other specified peripheral vascular diseases; E78.00 Pure hypercholesterolemia, unspecified; I99.8 Other disorder of circulatory system; Z83.3 Family history of diabetes mellitus; Z82.49 Family history of ischemic heart disease and other diseases of the circulatory system; I25.10 Atherosclerotic heart disease of native coronary artery without angina pectoris; Z87.891 Personal history of nicotine dependence; I11.0 Hypertensive heart disease with heart failure; Z95.0 Presence of cardiac pacemaker; E87.5 Hyperkalemia; I95.9 Hypotension, unspecified; K59.00 Constipation, unspecified; E83.51 Hypocalcemia; E86.1 Hypovolemia; E78.4 Other hyperlipidemia; B96.20 Unspecified Escherichia coli [E. coli] as the cause of diseases classified elsewhere; B96.89 Other specified bacterial agents as the cause of diseases classified elsewhere; Z95.5 Presence of coronary angioplasty implant and graft
CPT/HCPCS: 36247; 36415; 36430; 37186; 37213; 37227; 37228; 71045; 74018; 75625; 75710; 75716; 80048; 80053; 80061; 81001; 82550; 82553; 83735; 84443; 84484; 85025; 85347; 85610; 85730; 86850; 86900; 86920; 87086; 87186; 93005; 99284; C1725; C1751; C1766; C1769; C1876; C2623; J1170; J1644; J2001; J2250; J2270; J2405; J2720; J2997; J3370; J7030; J7040; J7050; P9016; Q9967

== ENCOUNTER → 2018-06-14 | Day surgery (SDC) | payer BC, MEDICARE ==
[2018-06-13 15:10] LABS: BASOPHILS # (AUTO) 0.1 (0.0-0.1); BASOPHILS % 0.5 % (0.0-1.0); EOSINOPHILS # (AUTO) 0.1 (0.0-0.4); EOSINOPHILS % 1.4 % (0.0-6.0); HEMATOCRIT 42.2 % (38.2-49.6); HEMOGLOBIN 14.1 g/dL (14.0-18.0); LYMPHOCYTES # (AUTO) 2.2 (1.0-3.2); LYMPHOCYTES % 21.8 % (18.0-39.1); MEAN CORPUSCULAR HEMOGLOBIN 28.7 pg (28-32); MEAN CORPUSCULAR HGB CONC 33.4 g/dL (31-35); MEAN CORPUSCULAR VOLUME 85.8 fL (81-99); MONOCYTES # (AUTO) 0.8 (0.2-0.8); NEUTROPHILS # (AUTO) 6.8 (2.1-6.9); NEUTROPHILS % 67.9 % (38.7-80.0); PLATELET COUNT 274 x10e3/uL (140-360); RED BLOOD COUNT 4.92 x10e6/uL (4.3-5.7); RED CELL DISTRIBUTION WIDTH 14.4 % (11.7-14.4)
[2018-06-13 15:20] LABS: INR 0.82; PROTHROMBIN TIME 12.1 seconds (11.9-14.5)
[2018-06-13 15:29] LABS: ALANINE AMINOTRANSFERASE 20 IU/L (0-55); ALBUMIN 3.9 g/dL (3.5-5.0); ALBUMIN/GLOBULIN RATIO 1.1 (0.8-2.0); ALKALINE PHOSPHATASE 89 IU/L (40-150); ANION GAP 14.8 mmol/L (8-16); BLOOD UREA NITROGEN 16 mg/dL (7-26); BUN/CREATININE RATIO 17 (6-25); CALCIUM 9.4 mg/dL (8.4-10.2); CARBON DIOXIDE 23 mmol/L (22-29); CHLORIDE 103 mmol/L (98-107); CHOL/HDL RATIO 4.6 (3.9-4.7); CHOLESTEROL 173 MD/DL (0-199); CREATININE, SERUM 0.95 mg/dL (0.72-1.25); EST GLOMERULAR FILTRATION RATE > 60 ML/MIN (60-); GLUCOSE 79 mg/dL (74-118); HDL CHOLESTEROL 38 MG/DL (40-60); LDL CHOLESTEROL 87 MG/DL (60-130); POTASSIUM 3.8 mmol/L (3.5-5.1); SODIUM 137 mmol/L (136-145); TRIGLYCERIDES 241 MG/DL (0-149)
[2018-06-14] VITALS (16 sets, daily range): BP systolic 118–160; BP diastolic 63–98
[~2018-06-14] VITALS: Ht 170.2 cm; Wt 81.6 kg
[~2018-06-14] MED LIST changes: +ATROPINE SULFATE 0.1 MG/ML 10ML SYR ONE; +FENTANYL CITRATE/PF 100MCG/2 ML INJ ONE; +HEPARIN SOD (PORCINE) 1000 UNIT/ML 30ML ONE; +HEPARIN SOD/SOD CHLORIDE 2,000 ML ONE; +IOPAMIDOL 300MG/ML 100 ML INFUS..BTL IV ONE; +LIDOCAINE HCL 2% LOCAL 20 ML VIAL ONE; +MIDAZOLAM HCL 2 MG/2 ML VIAL ONE; +NITROGLYCERIN/D5W 200 MCG/ML 250 ML ONE; +RANEXA500 MG PO; +SODIUM CHLORIDE 0.9% 1000ML 1,000 ML ONE
--- OUTSIDE RECORDS SUMMARY | 2018-06-14 10:46 | XMS REPORT | Clinical Summary ---
Author Author [facility] Address Unknown Phone Unavailable Care Team Providers Care [employer] Name Role Phone Alexa Zavala DO PCP Allergies Not on File Medications Not on file Active Problems Not on file Encounters Care Team Description Date Type Specialty Alexa Zavala, Status post bilateral above knee amputation (HCC) (Primary Dx) 02/07/2018 Transcribe Physical Therapy Orders after 06/13/2017 Social History Date Tobacco Use Types Packs/Day Years Used Never Assessed Sex Assigned at Date Recorded Not on file Industry Job Start Date Occupation Not on file Not on file Not on file Travel End Travel History Travel Start No recent travel history available. Last Filed Vital Signs Not on file Plan of Treatment Health Maintenance Due Date Last Done Comments COLON CANCER SCREENING 2001 SHINGLES VACCINES (1 of 2001 2) PNEUMOCOCCAL 2016 POLYSACCHARIDE VACCINE AGE 65 AND OVER PNEUMOCOCCAL-13 2016 INFLUENZA VACCINE 11/29/2017 Results Not on fileafter 06/13/2017 Insurance Payer Benefit Subscriber ID Type Phone Address Plan / Group BCBS BCBS xxxxxxxxxxxx PPO CHOICE PPO/MEKHI DAMON PPO Advance Directives Patient has advance care planning documents on file. For more information, steve dobbs contact: Andrea Roberts [address] [place], [place] [address] [place] [address]
--- OUTSIDE RECORDS SUMMARY | 2018-06-14 10:46 | XMS REPORT | Clinical Summary ---
Author Author [employer] Organization [facility] [employer] [facility] [facility] Address Unknown Phone Unavailable Care Team Providers Care Head Machinist Name Role Phone Aristeo Hammer Unavailable Allergies No Known Allergies Medications End Date Status Medication Sig Dispensed Refills Start Date Active gauze bandage 2 X 2 " pack left 100 each 1 Bndg groin wound 8 with 1 dry 2x2 and cover with 4x4's daily. Active gauze bandage 4 X 4 " pack left 50 each 1 Bndg groin wound 8 with 1 dry 2x2 and cover with 4x4's daily. Active adhesive tape (PAPER Use paper 2 each 1 TAPE) 1 X 10 "-yard Tape tape to place 8 gauze on wounds. Active amLODIPine (NORVASC) 5 MG Take 5 mg by 0 tablet mouth daily. Active clopidogrel (PLAVIX) 75 Dialy 0 mg tablet Active metoprolol (LOPRESSOR) 25 2 (two) times 0 MG tablet daily. Active nitroglycerin (NITROSTAT) As Needed as 0 0.4 MG SL tablet needed Active pravastatin (PRAVACHOL) Daily 0 80 MG tablet Active RANEXA 500 mg 12 hr 0 tablet 8 Active sertraline (ZOLOFT) 50 MG Daily 0 tablet Active HYDROcodone-acetaminophen Take 1 tablet 0 (NORCO 10-325) 10-325 mg by mouth per tablet every 6 (six) hours as needed for Pain. 03/10/2018 acetaminophen (TYLENOL) Take 2 90 tablet 0 325 MG tablet tablets (650 8 mg total) by mouth every 6 (six) hours as needed for Pain for up to 30 days. 05/10/2018 aspirin 325 MG tablet Take 1 tablet 30 tablet 2 (325 mg 8 total) by mouth daily for 90 days. 03/08/2018 Discontinued atorvastatin (LIPITOR) 40 Take 1 tablet 30 tablet 2 MG tablet (40 mg total) 8 by mouth nightly for 90 days. 05/10/2018 lisinopril Take 1 tablet 30 tablet 2 (PRINIVIL,ZESTRIL) 5 MG (5 mg total) 8 tablet by mouth daily for 90 days. 02/18/2018 HYDROcodone-acetaminophen Take 1 tablet 30 tablet 0 (NORCO 5-325) 5-325 mg by mouth 8 per tablet every 6 (six) hours as needed for up to 10 days. Max Daily Amount: 4 tablets 02/15/2018 ondansetron (ZOFRAN-ODT) Take 1 tablet 20 tablet 0 4 MG disintegrating (4 mg total) 8 tablet by mouth every 8 (eight) hours as needed for up to 7 days. 03/08/2018 Discontinued lisinopril 0 (PRINIVIL,ZESTRIL) 40 MG 8 tablet Active Problems Problem Noted Date Unilateral AKA, right 01/26/2018 Impaired mobility and ADLs 01/26/2018 Impaired mobility 01/26/2018 Thrombocytopenia 01/19/2018 Groin hematoma 01/19/2018 Acute postoperative pain 01/18/2018 Acute prerenal azotemia 01/18/2018 Metabolic acidosis 01/18/2018 Anemia 01/18/2018 SIRS (systemic inflammatory response syndrome) 01/18/2018 Vasogenic shock 01/18/2018 Acute pulmonary insufficiency 01/18/2018 Acute blood loss anemia 01/18/2018 Ischemic leg 01/17/2018 Encounters Care Team Description Date Type Specialty Kellen Dallas MD Post-operative state (Primary Dx) 03/08/2018 Office Visit Cardiology Salas Nino MD Acute blood loss anemia; Impaired mobility; Impaired mobility and ADLs; Ischemic leg; Metabolic acidosis; Unilateral AKA, right ([facility]); COPD (chronic obstructive pulmonary disease) with chronic bronchitis ([facility]); Controlled diabetes mellitus type 2 with complications, unspecified whether fpc insulin use ([facility]); S/P AKA (above knee amputation) unilateral, right ([facility]); PAD (peripheral artery disease) ([facility]); AICD (automatic cardioverter/defibrillator) present; Leukocytosis, unspecified type; Impaired mobility and activities of daily living 01/26/2018 Hospital Physical Medicine and - Encounter Rehabilitation 02/09/2018 Kellen Dallas MD AMPUTATION,ABOVE KNEE 01/18/2018 Surgery Medardo Knott MD 01/18/2018 Anesthesia Event Niecy Carmona MD 01/17/2018 Anesthesia Event Kellen Dallas MD BYPASS,FEMORAL-POPLITEAL 01/17/2018 Surgery Ron Viveros MD Massumi, MD Jaime Garrison, Dev Hdz MD Ischemic leg (Primary Dx); Acute postoperative pain; Acute prerenal azotemia; Anemia, unspecified type; Metabolic acidosis; SIRS (systemic inflammatory response syndrome) (HCC); Vasogenic shock (HCC); Acute blood loss anemia; Acute pulmonary insufficiency; Hematoma of groin, subsequent encounter; Thrombocytopenia (HCC); Scrotal hematoma 01/17/2018 Hospital Cardiology - Encounter 01/26/2018 01/17/2018 Orders Only General Internal Medicine after 06/13/2017 Social History Date Tobacco Use Types Packs/Day Years Used Former Smoker Cigarettes Smokeless Tobacco: Never Used Alcohol Use Drinks/Week oz/Week Comments No Alcohol Habits Answer Date Recorded How often do you have a drink containing alcohol? Never 03/08/2018 How many drinks containing alcohol do you have on Not asked a typical day when you are drinking? How often do you have six or more drinks on one Not asked occasion? Sex Assigned at Date Recorded Not on file Industry Job Start Date Occupation Not on file Not on file Not on file Travel End Travel History Travel Start No recent travel history available. Last Filed Vital Signs Time Taken Vital Sign Reading 03/08/2018 10:52 AM [employer] Blood Pressure 175/81 03/08/2018 10:52 AM [employer] Pulse 67 03/08/2018 10:52 AM [employer] Temperature 37 C (98.6 F) 03/08/2018 10:52 AM [employer] Respiratory Rate 18 03/08/2018 10:52 AM [employer] Oxygen Saturation 98% 02/01/2018 11:11 PM CDT Inhaled Oxygen 21% Concentration 03/08/2018 10:52 AM [employer] Weight 83.9 kg (185 lb) 03/08/2018 10:52 AM [employer] Height 170.2 cm (5' 7") 03/08/2018 10:52 AM [employer] Body Mass Index 28.98 Plan of Treatment Not on file Implants Device Identifier Shelf Expiration Date Model / Serial / Lot Implanted Type Area Manufactur er 07/05/2022 [id number] / / [id number] Patch Periph Vascu-Grd 2x9cm Tissue Groin [employer] [id number] - [id number] Graft/Subs LIFE Implanted: Qty: 1 on 01/17/2018 by [employer] TECH:Kellen Osborne MD INNOV Procedures Comments Procedure Name Priority Date/Time Associated Diagnosis CBC W/PLT COUNT & AUTO Routine 02/05/2018 DIFFERENTIAL 4:08 AM CDT PHOSPHORUS Routine 02/05/2018 4:08 AM CDT MAGNESIUM Routine 02/05/2018 4:08 AM CDT BASIC METABOLIC PANEL (7) Routine 02/05/2018 4:08 AM CDT CBC W/PLT COUNT & AUTO Routine 02/05/2018 DIFFERENTIAL 4:08 AM CDT RHYTHM STRIP - SCAN 01/29/2018 10:51 AM CDT CBC W/PLT COUNT & AUTO Routine 01/29/2018 DIFFERENTIAL 8:21 AM CDT PHOSPHORUS Routine 01/29/2018 8:21 AM CDT MAGNESIUM Routine 01/29/2018 8:21 AM CDT BASIC METABOLIC PANEL (7) Routine 01/29/2018 8:21 AM CDT CBC W/PLT COUNT & AUTO Routine 01/29/2018 DIFFERENTIAL 8:21 AM CDT POCT-GLUCOSE METER Routine 01/28/2018 3:55 PM CDT POCT-GLUCOSE METER Routine 01/28/2018 11:05 AM CDT POCT-GLUCOSE METER Routine 01/28/2018 6:02 AM CDT POCT-GLUCOSE METER Routine 01/27/2018 8:22 PM CDT POCT-GLUCOSE METER Routine 01/27/2018 4:35 PM CDT POCT-GLUCOSE METER Routine 01/27/2018 11:36 AM CDT POCT-GLUCOSE METER Routine 01/27/2018 6:04 AM CDT CBC W/PLT COUNT & AUTO Routine 01/27/2018 DIFFERENTIAL 5:35 AM CDT CBC W/PLT COUNT & AUTO Routine 01/27/2018 DIFFERENTIAL 5:35 AM CDT BASIC METABOLIC PANEL (7) Routine 01/27/2018 5:35 AM CDT URINALYSIS W/ MICROSCOPIC Routine 01/27/2018 5:07 AM CDT URINE CULTURE Routine 01/27/2018 5:07 AM CDT POCT-GLUCOSE METER Routine 01/26/2018 7:54 PM CDT POCT-GLUCOSE METER Routine 01/26/2018 5:24 PM CDT POCT-GLUCOSE METER Routine 01/26/2018 8:37 AM CDT CBC W/PLT COUNT & AUTO Routine 01/26/2018 DIFFERENTIAL 6:12 AM CDT MAGNESIUM Routine 01/26/2018 6:12 AM CDT CBC W/PLT COUNT & AUTO Routine 01/26/2018 DIFFERENTIAL 6:12 AM CDT BASIC METABOLIC PANEL (7) Routine 01/26/2018 6:12 AM CDT POCT-GLUCOSE METER Routine 01/25/2018 9:09 PM CDT POCT-GLUCOSE METER Routine 01/25/2018 5:09 PM CDT POCT-GLUCOSE METER Routine 01/25/2018 11:45 AM CDT POCT-GLUCOSE METER Routine 01/25/2018 7:50 AM CDT CBC W/PLT COUNT & AUTO Routine 01/25/2018 DIFFERENTIAL 4:58 AM CDT MAGNESIUM Routine 01/25/2018 4:58 AM CDT BASIC METABOLIC PANEL (7) Routine 01/25/2018 4:58 AM CDT CBC W/PLT COUNT & AUTO Routine 01/25/2018 DIFFERENTIAL 4:58 AM CDT POCT-GLUCOSE METER Routine 01/24/2018 9:14 PM CDT POCT-GLUCOSE METER Routine 01/24/2018 5:06 PM CDT POCT-GLUCOSE METER Routine 01/24/2018 11:01 AM CDT POCT-GLUCOSE METER Routine 01/24/2018 7:49 AM CDT CBC W/PLT COUNT & AUTO Routine 01/24/2018 DIFFERENTIAL 4:52 AM CDT MAGNESIUM Routine 01/24/2018 4:52 AM CDT BASIC METABOLIC PANEL (7) Routine 01/24/2018 4:52 AM CDT CBC W/PLT COUNT & AUTO Routine 01/24/2018 DIFFERENTIAL 4:52 AM CDT POCT-GLUCOSE METER Routine 01/23/2018 8:53 PM CDT POCT-GLUCOSE METER Routine 01/23/2018 4:25 PM CDT POCT-GLUCOSE METER Routine 01/23/2018 11:59 AM CDT POCT-GLUCOSE METER Routine 01/23/2018 7:55 AM CDT MAGNESIUM Routine 01/23/2018 5:36 AM CDT BASIC METABOLIC PANEL (7) Routine 01/23/2018 5:36 AM CDT CBC W/PLT COUNT & AUTO Routine 01/23/2018 DIFFERENTIAL 4:31 AM CDT CBC W/PLT COUNT & AUTO Routine 01/23/2018 DIFFERENTIAL 4:31 AM CDT POCT-GLUCOSE METER Routine 01/22/2018 10:18 PM CDT POCT-GLUCOSE METER Routine 01/22/2018 5:15 PM CDT POCT-GLUCOSE METER Routine 01/22/2018 11:28 AM CDT CBC W/PLT COUNT & AUTO JOSELYN 01/22/2018 DIFFERENTIAL 11:08 AM CDT MAGNESIUM JOSELYN 01/22/2018 11:08 AM CDT BASIC METABOLIC PANEL (7) JOSELYN 01/22/2018 11:08 AM CDT CBC W/PLT COUNT & AUTO JOSELYN 01/22/2018 DIFFERENTIAL 11:08 AM CDT POCT-GLUCOSE METER Routine 01/22/2018 7:42 AM CDT POCT-GLUCOSE METER Routine 01/21/2018 9:32 PM CDT POCT-GLUCOSE METER Routine 01/21/2018 6:06 PM CDT POCT-GLUCOSE METER Routine 01/21/2018 12:14 PM CDT POCT-GLUCOSE METER Routine 01/21/2018 7:43 AM CDT PROTHROMBIN TIME/INR Routine 01/21/2018 4:15 AM CDT CBC (HEMOGRAM ONLY) Routine 01/21/2018 4:15 AM CDT PHOSPHORUS Routine 01/21/2018 4:15 AM CDT MAGNESIUM Routine 01/21/2018 4:15 AM CDT BASIC METABOLIC PANEL (7) Routine 01/21/2018 4:15 AM CDT POCT-GLUCOSE METER Routine 01/20/2018 9:20 PM CDT TRANSFUSION SERVICE 01/20/2018 REPORT - SCAN 6:00 PM CDT BASIC METABOLIC PANEL (7) Routine 01/20/2018 4:39 AM CDT CBC (HEMOGRAM ONLY) Routine 01/20/2018 4:39 AM CDT PROTHROMBIN TIME/INR Routine 01/20/2018 4:39 AM CDT PHOSPHORUS Routine 01/20/2018 4:39 AM CDT HEMOGLOBIN AND HEMATOCRIT Routine 01/20/2018 4:39 AM CDT MAGNESIUM STAT 01/20/2018 4:39 AM CDT PREPARE RBC STAT 01/19/2018 11:55 PM CDT POCT-GLUCOSE METER Routine 01/19/2018 9:36 PM CDT POCT-GLUCOSE METER Routine 01/19/2018 6:15 PM CDT TRANSFUSION SERVICE 01/19/2018 REPORT - SCAN 6:02 PM CDT MAGNESIUM Routine 01/19/2018 3:41 AM CDT BASIC METABOLIC PANEL (7) Routine 01/19/2018 3:41 AM CDT CBC (HEMOGRAM ONLY) Routine 01/19/2018 3:41 AM CDT PROTHROMBIN TIME/INR Routine 01/19/2018 3:41 AM CDT PHOSPHORUS Routine 01/19/2018 3:41 AM CDT HEMOGLOBIN A1C Routine 01/19/2018 3:41 AM CDT PREPARE RBC STAT 01/18/2018 11:55 PM CDT TRANSFUSION SERVICE 01/18/2018 REPORT - SCAN 5:53 PM CDT CALCIUM, IONIZED STAT 01/18/2018 5:37 PM CDT HGB/HCT (H&H) - STAT LAB STAT 01/18/2018 5:37 PM CDT GLUCOSE-STAT LAB STAT 01/18/2018 5:37 PM CDT SODIUM NA-STAT LAB STAT 01/18/2018 5:37 PM CDT BLOOD GAS, ARTERIAL Routine 01/18/2018 5:37 PM CDT MAGNESIUM Routine 01/18/2018 5:22 PM CDT BASIC METABOLIC PANEL (7) Routine 01/18/2018 5:22 PM CDT CBC (HEMOGRAM ONLY) Routine 01/18/2018 5:22 PM CDT TISSUE EXAM AP Routine 01/18/2018 4:31 PM CDT TRANSFUSE LEUKO-REDUCED Routine 01/18/2018 RED BLOOD CELLS 3:29 PM CDT HGB/HCT (H&H) - STAT LAB STAT 01/18/2018 3:05 PM CDT GLUCOSE-STAT LAB STAT 01/18/2018 3:05 PM CDT POTASSIUM-STAT LAB STAT 01/18/2018 3:05 PM CDT SODIUM NA-STAT LAB STAT 01/18/2018 3:05 PM CDT BLOOD GAS, ARTERIAL STAT 01/18/2018 3:05 PM CDT RRL CRITICAL LABS STAT 01/18/2018 (ABG,NA,K,H&H,GLUCOSE) 3:05 PM CDT AMPUTATION,ABOVE KNEE 01/18/2018 Ischemia 2:30 PM CDT MAGNESIUM Routine 01/18/2018 10:44 AM CDT BLOOD GAS, ARTERIAL Routine 01/18/2018 5:56 AM CDT HGB/HCT (H&H) - STAT LAB Routine 01/18/2018 4:59 AM CDT BLOOD GAS, ARTERIAL Routine 01/18/2018 4:59 AM CDT XR CHEST 1 VIEW STAT 01/18/2018 PORTABLE/BEDSIDE 1:59 AM CDT CBC W/PLT COUNT & AUTO Routine 01/18/2018 DIFFERENTIAL 1:50 AM CDT FIBRINOGEN STAT 01/18/2018 1:50 AM CDT APTT STAT 01/18/2018 1:50 AM CDT PROTHROMBIN TIME/INR STAT 01/18/2018 1:50 AM CDT CALCIUM, IONIZED STAT 01/18/2018 1:50 AM CDT BLOOD GAS, ARTERIAL STAT 01/18/2018 1:50 AM CDT PHOSPHORUS Routine 01/18/2018 1:50 AM CDT MAGNESIUM Routine 01/18/2018 1:50 AM CDT BASIC METABOLIC PANEL (7) Routine 01/18/2018 1:50 AM CDT CBC W/PLT COUNT & AUTO Routine 01/18/2018 DIFFERENTIAL 1:50 AM CDT HGB/HCT (H&H) - STAT LAB STAT 01/18/2018 12:52 AM CDT GLUCOSE-STAT LAB STAT 01/18/2018 12:52 AM CDT POTASSIUM-STAT LAB STAT 01/18/2018 12:52 AM CDT SODIUM NA-STAT LAB STAT 01/18/2018 12:52 AM CDT BLOOD GAS, ARTERIAL STAT 01/18/2018 12:52 AM CDT RRL CRITICAL LABS STAT 01/18/2018 (ABG,NA,K,H&H,GLUCOSE) 12:52 AM CDT POCT-ACT Routine 01/18/2018 12:17 AM CDT HGB/HCT (H&H) - STAT LAB STAT 01/17/2018 11:54 PM CDT GLUCOSE-STAT LAB STAT 01/17/2018 11:54 PM CDT POTASSIUM-STAT LAB STAT 01/17/2018 11:54 PM CDT SODIUM NA-STAT LAB STAT 01/17/2018 11:54 PM CDT BLOOD GAS, ARTERIAL STAT 01/17/2018 11:54 PM CDT RRL CRITICAL LABS STAT 01/17/2018 (ABG,NA,K,H&H,GLUCOSE) 11:54 PM CDT POCT-ACT Routine 01/17/2018 11:36 PM CDT HGB/HCT (H&H) - STAT LAB STAT 01/17/2018 11:09 PM CDT GLUCOSE-STAT LAB STAT 01/17/2018 11:09 PM CDT POTASSIUM-STAT LAB STAT 01/17/2018 11:09 PM CDT SODIUM NA-STAT LAB STAT 01/17/2018 11:09 PM CDT BLOOD GAS, ARTERIAL STAT 01/17/2018 11:09 PM CDT CALCIUM, IONIZED STAT 01/17/2018 11:09 PM CDT RRL CRITICAL LABS STAT 01/17/2018 (ABG,NA,K,H&H,GLUCOSE) 11:09 PM CDT TRANSFUSE LEUKO-REDUCED Routine 01/17/2018 RED BLOOD CELLS 10:49 PM CDT POCT-ACT Routine 01/17/2018 10:41 PM CDT HGB/HCT (H&H) - STAT LAB STAT 01/17/2018 10:16 PM CDT GLUCOSE-STAT LAB STAT 01/17/2018 10:16 PM CDT POTASSIUM-STAT LAB STAT 01/17/2018 10:16 PM CDT SODIUM NA-STAT LAB STAT 01/17/2018 10:16 PM CDT BLOOD GAS, ARTERIAL STAT 01/17/2018 10:16 PM CDT CALCIUM, IONIZED STAT 01/17/2018 10:16 PM CDT RRL CRITICAL LABS STAT 01/17/2018 (ABG,NA,K,H&H,GLUCOSE) 10:16 PM CDT POCT-ACT Routine 01/17/2018 10:12 PM CDT HGB/HCT (H&H) - STAT LAB STAT 01/17/2018 9:25 PM CDT GLUCOSE-STAT LAB STAT 01/17/2018 9:25 PM CDT POTASSIUM-STAT LAB STAT 01/17/2018 9:25 PM CDT SODIUM NA-STAT LAB STAT 01/17/2018 9:25 PM CDT BLOOD GAS, ARTERIAL STAT 01/17/2018 9:25 PM CDT CALCIUM, IONIZED STAT 01/17/2018 9:25 PM CDT RRL CRITICAL LABS STAT 01/17/2018 (ABG,NA,K,H&H,GLUCOSE) 9:25 PM CDT ECG 12-LEAD Routine 01/17/2018 8:27 PM CDT Procedure Note - Interface, External Ris In - 01/17/2018 8:54 PM CDT Ventricula r Rate 77 BPM Atrial Rate 77 BPM P-R Interval 164 ms QRS Duration 66 ms Q-T Interval 364 ms QTC Calculatio n(Bazett) 411 ms P [place] 35 degrees R [place] -17 degrees T [place] 48 degrees Normal sinus rhythm Inferior infarct (cited on or before 2) Abnormal ECG When compared with ECG of 04:15, T wave inversion no longer evident in Inferior leads ECG 12-LEAD STAT 01/17/2018 8:27 PM CDT THROMBECTOMY-LOWER 01/17/2018 PVD (peripheral vascular 8:05 PM CDT disease) (HCC) Case Notes RIGHT FEM-POP BYPASS, THROMBECTO MY, POSS ANGIOGRAM CELL SAVER Special Needs RIGHT FEM-POP BYPASS, THROMBECTO MY, POSS ANGIOGRAM CELL SAVER BYPASS,FEMORAL-POPLITEAL 01/17/2018 PVD (peripheral vascular 8:05 PM CDT disease) (HCC) Case Notes RIGHT FEM-POP BYPASS, THROMBECTO MY, POSS ANGIOGRAM CELL SAVER Special Needs RIGHT FEM-POP BYPASS, THROMBECTO MY, POSS ANGIOGRAM CELL SAVER CBC W/PLT COUNT & AUTO Routine 01/17/2018 DIFFERENTIAL 7:56 PM CDT TYPE AND SCREEN, Routine 01/17/2018 AUTOMATED 7:56 PM CDT FIBRINOGEN STAT 01/17/2018 7:56 PM CDT APTT STAT 01/17/2018 7:56 PM CDT PROTHROMBIN TIME/INR STAT 01/17/2018 7:56 PM CDT CREATINE KINASE (CK) Routine 01/17/2018 7:56 PM CDT LACTATE DEHYDROGENASE Routine 01/17/2018 (LDH) 7:56 PM CDT PHOSPHORUS Routine 01/17/2018 7:56 PM CDT MAGNESIUM Routine 01/17/2018 7:56 PM CDT BASIC METABOLIC PANEL (7) Routine 01/17/2018 7:56 PM CDT CBC W/PLT COUNT & AUTO Routine 01/17/2018 DIFFERENTIAL 7:56 PM CDT after 06/13/2017 Results * CBC with platelet count + automated diff (02/05/2018 4:08 AM CDT) Only the most recent of 10 results within the time period is included. WBC 8.2 3.5 - 10.5 K/L [facility] RBC 3.35 (L) 4.63 - 6.08 M/L [facility] Hemoglobin 9.6 (L) 13.7 - 17.5 GM/DL [facility] Hematocrit 31.9 (L) 40.1 - 51.0 % [facility] MCV 95.2 (H) 79.0 - 92.2 fL [facility] MCH 28.7 25.7 - 32.2 pg [facility] MCHC 30.1 (L) 32.3 - 36.5 GM/DL [facility] RDW 15.4 (H) 11.6 - 14.4 % [facility] Platelets 165 150 - 450 K/CU MM [facility] MPV 9.7 9.4 - 12.4 fL [facility] nRBC 0 0 - 0 /100 WBC [facility] % Neutros 64 % [facility] % Lymphs 23 % [facility] % Monos 9 % [facility] % Eos 4 % [facility] % Baso 0 % [facility] # Neutros 5.23 1.78 - 5.38 K/L [facility] # Lymphs 1.86 1.32 - 3.57 K/L [facility] # Monos 0.70 0.30 - 0.82 K/L [facility] # Eos 0.29 0.04 - 0.54 K/L [facility] # Baso 0.03 0.01 - 0.08 K/L [facility] Immature 1 0 - 1 % [facility] Granulocytes-[facility] Specimen Blood - Arm, Left Performing Organization Address [facility] Phone Number [address] * Phosphorus (02/05/2018 4:08 AM CDT) Only the most recent of 7 results within the time period is included. Phosphorus 3.6 2.3 - 4.7 mg/dL [facility] Specimen Blood - Arm, Left Performing Organization Address [facility] Phone Number [address] * Magnesium (02/05/2018 4:08 AM CDT) Only the most recent of 14 results within the time period is included. Magnesium 2.0 1.6 - 2.6 mg/dL [facility] Specimen Blood - Arm, Left Performing Organization Address [facility] Phone Number [address] * Basic Metabolic Panel (02/05/2018 4:08 AM CDT) Only the most recent of 14 results within the time period is included. Sodium 140 136 - 145 meq/L [facility] Potassium 4.2 3.5 - 5.1 meq/L [facility] Chloride 106 98 - 107 meq/L [facility] CO2 24 22 - 29 meq/L [facility] BUN 18 7 - 21 mg/dL [facility] Creatinine 0.79 0.57 - 1.25 mg/dL [facility] Glucose 96 70 - 105 mg/dL [facility] Calcium 9.1 8.4 - 10.2 mg/dL [facility] EGFR Comment: INSUFFICIENT CLINICAL mL/min/1.73 sq m [facility] DATA TO CALCULATE ESTIMATED [facility] GFR. Specimen Blood - Arm, Left Performing Organization Address City/[facility]/Zipcode Phone Number [address] [facility] * RHYTHM STRIP - SCAN (01/29/2018 10:51 AM CDT) Narrative Performed At * POC-Glucose meter (01/28/2018 3:55 PM CDT) Only the most recent of 33 results within the time period is included. POC-Glucose Meter 141 (H)Comment: TESTED AT 70 - 110 mg/dL [address] [id number] Specimen Blood Performing Organization Address City/[facility] Phone Number [address] * Urinalysis w/ Microscopic (01/27/2018 5:07 AM CDT) Color, UA Yellow [facility] Clarity, UA Clear [facility] Specific [place], UA 1.009 1.001 - 1.035 [facility] pH, UA 7.5 5.0 - 8.0 [facility] Protein, UA Negative Negative [facility] Glucose, UA Negative Negative [facility] Ketones, UA Negative Negative [facility] Bilirubin, UA Negative Negative [facility] Blood, UA Negative Negative [facility] Nitrite, UA Negative Negative [facility] Leukocytes, UA Negative Negative [facility] Urobilinogen, UA 0.2 0.2 - 1.0 mg/dL [facility] RBC, UA 1 /HPF [facility] WBC, UA 1 /HPF [facility] Mucus Rare [facility] Squam Epithel, UA 1 /HPF [facility] Specimen Source Urine, Voided [facility] Specimen Urine - Urine, Voided Performing Organization Address [facility] Phone Number [address] [address] [phone] [place] [address] * Urine culture (01/27/2018 5:07 AM CDT) Result See comment [facility] Specimen Urine - Urine, Voided Narrative Performed At <10,000 col/mL Gram negative rods [facility] Performing Organization Address City/[facility] Phone Number [place] [phone] [place] [address] [facility] * Prothrombin time/INR (01/21/2018 4:15 AM CDT) Only the most recent of 5 results within the time period is included. Protime 15.2 (H) 11.7 - 14.7 seconds [facility] INR 1.2 <=5.9 [facility] Specimen Blood - Arm, Left Narrative Performed At RECOMMENDED COUMADIN/WARFARIN INR THERAPY RANGES [facility] STANDARD DOSE: 2.0 - 3.0 Includes: PROPHYLAXIS for venous thrombosis, [facility] systemic embolization; TREATMENT for venous thrombosis and/or pulmonary embolus. HIGH RISK: Target INR is 2.5-3.5 for patients with mechanical heart valves. Performing Organization Address [facility] Phone Number [place] [phone] [place] [address] [facility] * CBC (Hemogram only) (01/21/2018 4:15 AM CDT) Only the most recent of 4 results within the time period is included. WBC 10.7 (H) 3.5 - 10.5 K/L [facility] RBC 2.66 (L) 4.63 - 6.08 M/L [facility] Hemoglobin 7.9 (L) 13.7 - 17.5 GM/DL [facility] Hematocrit 24.0 (L) 40.1 - 51.0 % [facility] MCV 90.2 79.0 - 92.2 fL [facility] MCH 29.7 25.7 - 32.2 pg [facility] MCHC 32.9 32.3 - 36.5 GM/DL [facility] RDW 14.8 (H) 11.6 - 14.4 % [facility] Platelets 159 150 - 450 K/CU MM [facility] MPV 10.2 9.4 - 12.4 fL [facility] nRBC 0 0 - 0 /100 WBC [facility] Specimen Blood - Arm, Left Performing Organization Address City/[facility]/Zipcode Phone Number [facility] [address] [place] [address] [facility] * TRANSFUSION SERVICE REPORT - SCAN (01/20/2018 6:00 PM CDT) Only the most recent of 3 results within the time period is included. Narrative Performed At * Hemoglobin and hematocrit (01/20/2018 4:39 AM CDT) Hemoglobin 7.5 (L) 13.7 - 17.5 GM/DL [facility] Hematocrit 23.5 (L) 40.1 - 51.0 % [facility] Specimen Blood Performing Organization Address [facility]/Zipcode Phone Number [facility] [address] [place], [address] * Prepare RBC (01/19/2018 11:55 PM CDT) Only the most recent of 2 results within the time period is included. CROSSMATCH COMPATIBLE [facility] [place] Unit ABO A Pos [facility] [place] UNIT NUMBER [id number] [facility] [place] Status TRANSFUSED [facility] [place] Blood Bank Product RED BLOOD CELLS [facility] [place] PRODUCT CODE [id number] [facility] [place] CROSSMATCH COMPATIBLE [facility] [place] Unit ABO A Pos [facility] [place] UNIT NUMBER [id number] [facility] [place] Status RETURNED FROM ISSUE [facility] [place] Blood [facility] Product RED BLOOD CELLS [facility] [place] PRODUCT CODE [id number] [facility] [place] Performing Organization Address [facility] Phone Number [facility] [place] * Hemoglobin A1c (01/19/2018 3:41 AM CDT) Hemoglobin A1C 5.4 4.3 - 6.1 % [facility] Specimen Blood - Line, Arterial Performing Organization Address [facility] Phone Number [address] * Sodium Na-Stat Lab (01/18/2018 5:37 PM CDT) Only the most recent of 7 results within the time period is included. Sodium 138 135 - 148 meq/L [facility] Specimen Blood, Arterial Performing Organization Address [place] [facility] Phone Number [address] * Glucose-Stat Lab (01/18/2018 5:37 PM CDT) Only the most recent of 7 results within the time period is included. Glucose 114 (H) 70 - 110 mg/dL [facility] Specimen Blood, Arterial Performing Organization Address [facility] Phone Number [address] * HGB/HCT (H&H)-Stat Lab (01/18/2018 5:37 PM CDT) Only the most recent of 8 results within the time period is included. Hemoglobin 8.9 (L) 13.0 - 16.8 g/dL [facility] Hematocrit 26.0 (L) 40.0 - 50.0 % [facility] Specimen Blood, Arterial Performing Organization Address [facility] [place] [address] [phone] [place] [address] * Calcium, Ionized (01/18/2018 5:37 PM CDT) Only the most recent of 5 results within the time period is included. Calcium, Ion 1.17 1.12 - 1.27 mmol/L [facility] pH, Blood 7.31 [facility] Specimen Blood Performing Organization Address [facility] Phone Number [place] [phone] [place] [address] * Blood gas, arterial (01/18/2018 5:37 PM CDT) Only the most recent of 10 results within the time period is included. pH, Arterial 7.31 (L) 7.35 - 7.45 [facility] pCO2, Arterial 48 (H) 35 - 45 mmHg [facility] pO2, Arterial 224 (H) 80 - 90 mmHg [facility] O2 Sat, Arterial 99.4 (H) 96.0 - 97.0 % [facility] HCO3, Arterial 24 21 - 29 mmol/L [facility] Base Excess, Arterial -2.7 (L) -2.0 - 3.0 mmol/L [facility] Patient Temperature 37.6 C [facility] FIO2 32.0 % [facility] Specimen Blood, Arterial Performing Organization Address [facility] Phone Number [address] [address] [phone] [address] * Tissue Exam (01/18/2018 4:31 PM CDT) Case Report Surgical Pathology [facility] Report [facility] Case: [id number] Authorizing Provider:Kellen Dallas MD Collected: 01/18/2018 1631 Ordering Location: [facility] CV Recovery Room 2 Received: 01/19/2018 0810 Pathologist: Timi Gtz MD Specimen:Soft Tissue, Other, right below leg amputation DIAGNOSIS PART A RIGHT LEG, 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 ISCHEMIC CHANGES IN TISSUE. PRIOR STENT PRESENT. SKIN AND BONE MARGINS VIABLE. 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 On the medial side of the leg is a stapled well-healed wound measuring 11.5 cm in length located 14 cm from the skin resection margin. All toes are present. The entire foot and leg have a light pink discoloration. There are no areas of gangrene or necrosis. The resection margin is grossly viable. The posterior and anterior tibialis vessels all have light atherosclerotic changes with no thrombi. The femoropopliteal vessels have distinct atherosclerotic changes with thrombi, and there is a metal stent in the femoral vein measuring 5 cm in length. Section code: A1, skin margin en face; A2, well-healed scar; A3, femoropopliteal arteries; A4, anterior tibialis vessel; A5, posterior tibialis vessel; A6, bone marrow from resection margin submitted for light decalcification; A7, cross section of fifth digit submitted for decalcification. CG/ew Specimen Tissue - Soft Tissue, Other Performing Organization Address City/[facility]/Zipcode Phone Number [facility] [address] [place], [place] [id number] [facility] * Potassium-Stat Lab (01/18/2018 3:05 PM CDT) Only the most recent of 6 results within the time period is included. Potassium 4.0 3.6 - 5.5 meq/L [facility] Specimen Blood, Arterial Performing Organization Address City/[facility]/Zipcode Phone Number [facility] [address] [place] [address] [facility] * XR chest 1 view portable / bedside (01/18/2018 1:59 AM CDT) Narrative Performed At FINAL REPORT GE RIS History: Postoperative evaluation. Comparison: 04/20/2002 Findings: A single view of the chest is submitted. The tip of an endotracheal tube is between the clavicles and nadira. A right IJ CVC tip overlies the superior vena cava without associated pneumothorax or hematoma. A left subclavian, dual-lead pacemaker is in place. The cardiomediastinal contours are otherwise unremarkable. There is no focal consolidation, pneumothorax, large pleural effusion or evidence of overt pulmonary edema. There is no acute bony abnormality. Signed: Taz Fonseca MD Report Verified Date/Time:01/18/2018 02:27:53 Reading Location: [address] Reading Room Procedure Note Interface, External Ris In - 01/18/2018 2:30 AM CDT FINAL REPORT History: Postoperative evaluation. Comparison: 04/20/2002 Findings: A single view of the chest is submitted. The tip of an endotracheal tube is between the clavicles and nadira. A right IJ CVC tip overlies the superior vena cava without associated pneumothorax or hematoma. A left subclavian, dual-lead pacemaker is in place. The cardiomediastinal contours are otherwise unremarkable. There is no focal consolidation, pneumothorax, large pleural effusion or evidence of overt pulmonary edema. There is no acute bony abnormality. Signed: Taz Fonseca MD Report Verified Date/Time: 01/18/2018 02:27:53 Reading Location: [address] Reading Room Performing Organization Address [facility] Phone Number [facility] * aPTT (01/18/2018 1:50 AM CDT) Only the most recent of 2 results within the time period is included. PTT 31.1 22.5 - 36.0 seconds [facility] Specimen Blood Performing Organization Address [facility] Phone Number [address] * Fibrinogen (01/18/2018 1:50 AM CDT) Only the most recent of 2 results within the time period is included. Fibrinogen 202 (L) 225 - 434 mg/dl [facility] Specimen Blood Performing Organization Address [facility] Phone Number [address] * POC ACTIVATED CLOTTING TIME (01/18/2018 12:17 AM CDT) Only the most recent of 4 results within the time period is included. 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) Abnormal ECG When compared with ECG of 23-APR-2002 04:15, T wave inversion no longer evident in Inferior leads Confirmed by MD NABILA, TRUDY ([id number]) on 01/18/2018 1:28:53 PM Procedure Note Interface, External Ris In - 01/18/2018 1:29 PM CDT Ventricular Rate 77 BPM Atrial Rate 77 BPM P-R Interval 164 ms QRS Duration 66 ms Q-T Interval 364 ms QTC Calculation(Bazett) 411 ms P [place] 35 degrees R [place]ri[place] -17 degrees T [place] 48 degrees Normal sinus rhythm Inferior infarct (cited on or before 22-APR-2002) Abnormal ECG When compared with ECG of 23-APR-2002 04:15, T wave inversion no longer evident in Inferior leads Confirmed by MD DAHL JORGE ([id number]) on 01/18/2018 1:28:53 PM Performing Organization Address City/State/Zipcode Phone Number GE MUSE * Type and screen, automated (01/17/2018 7:56 PM CDT) ABO/RH AUTOMATED (BEAKER) A POSITIVE [facility] Ab Scrn NEGATIVE [facility] Specimen Blood - Central Venous Line Performing Organization Address [facility] Phone Number [place] [phone] * Lactate dehydrogenase (LDH) (01/17/2018 7:56 PM CDT) LDH 300 (H) 125 - 220 U/L [facility] Specimen Blood - Central Venous Line Performing Organization Address [facility] Phone Number [address] [address] [phone] [address] * Creatine Kinase (CK) (01/17/2018 7:56 PM CDT) Total CK 973 (H) 29 - 200 U/L [facility] Specimen Blood - Central Venous Line Performing Organization Address [facility] [place] [address] [phone] [place] [address] after 06/13/2017 Insurance Payer Benefit Subscriber ID Type Phone Address Plan / Group [employer]UE [employer]BS PPO xxxxxxxxxxxx PPO [phone] [address] [place] [address] CHOICE Advance Directives For more information, please contact: [facility] [address] [place] [address] Date Inactivated Comments Code Status Date Activated 02/09/2018 12:54 PM Full Code 01/26/2018 3:39 PM This code status was determined by: Patient 01/26/2018 3:39 PM Full Code 01/26/2018 3:23 PM This code status was determined by: Patient 01/26/2018 2:44 PM Full Code 01/18/2018 12:53 PM This code status was determined by: Patient
--- OUTSIDE RECORDS SUMMARY | 2018-06-14 10:47 | XMS REPORT | Summary of Care ---
Author Author [facility] Organization [facility] Address Unknown Phone Unavailable Encounter QIANA Doshi(ARIANNA) [id number] Date(s): 02/14/17 - 02/14/17 [facility] [address] [place] [address]- [phone] Discharge Disposition: Home or Self Care Attending Physician: Raymundo Kuhn MD Referring Physician: Raymundo Kuhn MD Vital Signs Most recent to 1 oldest [Reference Range]: Height 170.18 cm (02/13/17 10:01 AM) Temperature Oral 97.8 DegF [96.4-99.1 DegF] (02/13/17 10:17 AM) Blood Pressure 172/98 mmHg [90-140/60-90 mmHg] *HI* (02/13/17 10:17 AM) Peripheral Pulse 74 bpm Rate [60-100 bpm] (02/13/17 10:17 AM) Weight 90.455 kg (02/13/17 10:01 AM) Body Mass Index 31.23 m2 (02/13/17 10:01 AM) Problem List Condition Effective Dates Status Health Status Informant CAD (coronary artery Active disease)(Confirmed) Shortness of Active breath(Confirmed) Allergies, Adverse Reactions, Alerts Substance Reaction Severity Status NKDA Active Medications amLODIPine 5 mg oral tablet 5 mg=1 tab, PO, Daily, 0 Refill(s) Start Date: 02/14/17 Status: Ordered aspirin 81 mg tablet, enteric coated 81 mg=1 tab, PO, Daily, # 90 tab, 3 Refill(s) Start Date: 02/13/17 Status: Ordered lisinopril 40 mg oral tablet 40 mg=1 tab, PO, Daily, 0 Refill(s) Start Date: 02/14/17 Status: Ordered metoprolol tartrate 50 mg oral tablet 50 mg=1 tab, PO, BID, 0 Refill(s) Start Date: 02/14/17 Status: Ordered nitroglycerin SL Tab 0.4 mg, 1 tab, Route: SL, Drug form: TAB, Q5Min, Dosing Weight 90.455, kg, PRN C hest Pain, Start date: 02/14/17 17:51:00 CDT, Duration: 3 doses or times, Stop d ate: Limited # of times Notes: (Same as:Nitroquick, Nitrostat)"Do Not Crush" Sublingual tablet Start Date: 02/14/17 Stop Date: 02/14/17 Status: Discontinued Plavix 75 mg oral tablet 75 mg=1 tab, PO, Daily, 0 Refill(s) Start Date: 02/13/17 Status: Ordered pravastatin 80 mg oral tablet 80 mg=1 tab, PO, Daily, 0 Refill(s) Start Date: 02/14/17 Status: Ordered sertraline 50 mg oral tablet 50 mg=1 tab, PO, Daily, 0 Refill(s) Start Date: 02/14/17 Status: Ordered sodium chloride 0.9% 1000 ml INJ 750 mL 750 mL, Rate: 75 ml/hr, Infuse over: 10 hr, Route: IV, Dosing Weight 90.455 kg, Total Volume: 750, Start date: 02/14/17 17:51:00 CDT, Duration: 10 hr, Stop date : 02/15/17 3:50:00 CDT Start Date: 02/14/17 Stop Date: 02/14/17 Status: Discontinued Unknown Home Medication Refill(s) 0 Start Date: 02/13/17 Stop Date: 02/14/17 Status: Discontinued Results ELECTROLYTES Most recent to 1 oldest [Reference Range]: Sodium Lvl [135-145 140 mEq/L mEq/L] (02/13/17 10:34 AM) Potassium Lvl 4.2 mEq/L [3.5-5.1 mEq/L] (02/13/17 10:34 AM) Chloride Lvl [95-109 105 mEq/L mEq/L] (02/13/17 10:34 AM) CO2 [24-32 mEq/L] 28 mEq/L (02/13/17 10:34 AM) AGAP [10.0-20.0 11.2 mEq/L mEq/L] (02/13/17 10:34 AM) CHEM PANEL Most recent to 1 oldest [Reference Range]: Creatinine Lvl 1.10 mg/dL [0.50-1.40 mg/dL] (02/13/17 10:34 AM) eGFR 70 mL/min/1.73m2 1 *NA* (02/13/17 10:34 AM) BUN [7-22 mg/dL] 15 mg/dL (02/13/17 10:34 AM) B/C Ratio [6-25] 14 (02/13/17 10:34 AM) Glucose Lvl [70-99 92 mg/dL mg/dL] (02/13/17 10:34 AM) Total Protein 7.9 g/dL [6.4-8.4 g/dL] (02/13/17 10:34 AM) Albumin Lvl [3.5-5.0 3.8 g/dL g/dL] (02/13/17 10:34 AM) Globulin [2.7-4.2 4.1 g/dL g/dL] (02/13/17 10:34 AM) A/G Ratio [0.7-1.6] 0.9 (02/13/17 10:34 AM) Calcium Lvl 8.2 mg/dL [8.5-10.5 mg/dL] *LOW* (02/13/17 10:34 AM) ALT [0-65 unit/L] 34 unit/L (02/13/17 10:34 AM) AST [0-37 unit/L] 14 unit/L (02/13/17 10:34 AM) Alk Phos [39-136 105 unit/L unit/L] (02/13/17 10:34 AM) Bili Total [0.2-1.3 0.8 mg/dL mg/dL] (02/13/17 10:34 AM) 1Result Comment: The eGFR is calculated using the CKD-EPI formula. In most young, healthy individuals the eGFR will be >90 mL/min/1.73m2. The eGFR declines with age. An eGFR of 60-89 may be normal in some populations, particularly the elderly, for whom the CKD-EPI formula has not been extensively validated. Use of the eGFR is not recommended in the following populations: Individuals with unstable creatinine concentrations, including patients and those with serious co-morbid conditions. Patients with extremes in muscle mass or diet. The data above are obtained from the National Kidney Disease Education Program ( NKDEP) which additionally recommends that when the eGFR is used in patients with extremes of body mass index for purposes of drug dosing, the eGFR should be mul tiplied by the estimated BMI. LIPIDS Most recent to 1 oldest [Reference Range]: CHD Risk [4.00-7.30] 4.49 (02/13/17 10:34 AM) Chol [<=199 mg/dL] 157 mg/dL (02/13/17 10:34 AM) Trig [<=149 mg/dL] 152 mg/dL *HI* (02/13/17 10:34 AM) HDL [>=61 mg/dL] 35 mg/dL *LOW* (02/13/17 10:34 AM) LDL (Calculated) 92 mg/dL [<=99 mg/dL] (02/13/17 10:34 AM) VLDL 30 *NA* (02/13/17 10:34 AM) HEMATOLOGY Most recent to 1 oldest [Reference Range]: WBC [3.7-10.4 K/CMM] 8.7 K/CMM (02/13/17 10:34 AM) RBC [4.70-6.10 4.70 M/CMM M/CMM] (02/13/17 10:34 AM) Hgb [14.0-18.0 g/dL] 14.5 g/dL (02/13/17 10:34 AM) Hct [42.0-54.0 %] 42.9 % (02/13/17 10:34 AM) MCV [80.0-94.0 fL] 91.2 fL (02/13/17 10:34 AM) MCH [27.0-31.0 pg] 30.8 pg (02/13/17 10:34 AM) MCHC [32.0-36.0 33.8 g/dL g/dL] (02/13/17 10:34 AM) RDW [11.5-14.5 %] 13.4 % (02/13/17 10:34 AM) Platelet [133-450 235 K/CMM K/CMM] (02/13/17 10:34 AM) MPV [7.4-10.4 fL] 7.5 fL (02/13/17 10:34 AM) Segs [45.0-75.0 %] 67.8 % (02/13/17 10:34 AM) Lymphocytes 24.7 % [20.0-40.0 %] (02/13/17 10:34 AM) Monocytes [2.0-12.0 6.0 % %] (02/13/17 10:34 AM) Eosinophils [0.0-4.0 0.9 % %] (02/13/17 10:34 AM) Basophils [0.0-1.0 0.6 % %] (02/13/17 10:34 AM) Segs-Bands # 5.9 K/CMM [1.5-8.1 K/CMM] (02/13/17 10:34 AM) Lymphocytes # 2.1 K/CMM [1.0-5.5 K/CMM] (02/13/17 10:34 AM) Monocytes # [0.0-0.8 0.5 K/CMM K/CMM] (02/13/17 10:34 AM) Eosinophils # 0.1 K/CMM [0.0-0.5 K/CMM] (02/13/17 10:34 AM) Basophils # [0.0-0.2 0.1 K/CMM K/CMM] (02/13/17 10:34 AM) Immunizations Given and Recorded Vaccine Date Status Refusal Reason pneumococcal 23-valent vaccine 12/31/05 Given Procedures Procedure Date Related Diagnosis Body Site Insertion of cardiac pacemaker 02/14/12 Stent placement Social History Social History Type Response Substance Abuse Use: None. Alcohol Never Smoking Status Former smoker; Type: Chewing tobacco; Exposure to Tobacco Smoke dip; Cigarette Smoking Last 365 Days Yes; Reg Smoking Cessation Counseling No1 1dipping since quit smoking 3 years ago Assessment and Plan No data available for this section
--- OUTSIDE RECORDS SUMMARY | 2018-06-14 10:47 | XMS REPORT | Continuity of Care Document ---
Author Author [facility] Interface Address Unknown Phone Unavailable Problems Problem Status Onset Date Classification Date Reported Comments Source PERIPHERAL ANGIOGRAM /C INTERVENTION Active 06/13/2018 [facility] UNK Active 01/27/2017 [facility] CAD (<span ID="[id number]">Confirmed</span>) Active Problem 02/17/2017 [facility] Shortness of breath Active Problem 02/17/2017 [facility] Medications Medication Details Route Status Patient Instructions Ordering Provider Order Date Source Nitroglycerin 0.4 mg, 1 tab, Route: SL, Drug form: TAB, Q5Min, Dosing Weight 90.455, kg, PRN Chest Pain, Start date: 02/14/17 17:51:00 CDT, Duration: 3 doses or times, Stop date: Limited # of timesNotes: (Same as: Nitroquick, Nitrostat) "Do Not Crush" Sublingual tablet Inactive 02/14/2017 [facility] sodium chloride 0.9% 1000 ml INJ 750 mL 750 mL, Rate: 75 ml/hr, Infuse over: 10 hr, Route: IV, Dosing Weight 90.455 kg, Total Volume: 750, Start date: 02/14/17 17:51:00 CDT, Duration: 10 hr, Stop date: 02/15/17 3:50:00 CDT Inactive 02/14/2017 [facility] pravastatin 80 mg oral tablet 80 mg=1 tab, PO, Daily, 0 Refill(s) Active 02/14/2017 [facility] sertraline 50 mg oral tablet 50 mg=1 tab, PO, Daily, 0 Refill(s) Active 02/14/2017 [facility] metoprolol tartrate 50 mg oral tablet 50 mg=1 tab, PO, BID, 0 Refill(s) Active 02/14/2017 [facility] amLODIPine 5 mg oral tablet 5 mg=1 tab, PO, Daily, 0 Refill(s) Active 02/14/2017 [facility] lisinopril 40 mg oral tablet 40 mg=1 tab, PO, Daily, 0 Refill(s) Active 02/14/2017 [facility] Unknown Home Medication Refill(s) 0 No Longer Active 02/13/2017 [facility] aspirin 81 mg tablet, enteric coated 81 mg=1 tab, PO, Daily, # 90 tab, 3 Refill(s) Active 02/13/2017 [facility] clopidogrel 75 MG Oral Tablet [Plavix] 75 mg=1 tab, PO, Daily, 0 Refill(s) Active 02/13/2017 [facility] Aspirin (Johann Aspirin) 325 Mg Tablet, 325 Mg Oral Daily Active 04/13/2015 [facility] Calcium Carbonate/Mag Hydrox (Antacid Extra Strngth Tab Chew) 1 Each Tab.chew, Active 04/13/2015 [facility] Potassium Gluconate 99 Mg Tablet.er, 99 Mg Oral Daily Active 04/13/2015 [facility] Ubidecarenone (Co Q-10) 100 Mg Capsule, 100 Mg Oral Daily Active 04/13/2015 [facility] Amlodipine Besylate 5 Mg Tablet Daily Active [facility] Clopidogrel Bisulfate (Clopidogrel) 75 Mg Tablet Dialy Active [facility] Lisinopril 40 Mg Tablet Daily Active [facility] Metoprolol Tartrate 25 Mg Tablet Twice A Day Active [facility] Nitroglycerin 0.4 Mg Tab.subl As Needed as needed Active [facility] Pravastatin Sodium 80 Mg Tablet Daily Active [facility] Sertraline Hcl 50 Mg Tablet Daily Active [facility] Allergies, Adverse Reactions, Alerts Substance Category Reaction Severity Reaction type Status Date Reported Comments Source No Known Drug Allergies Unknown Allergy to Substance Active 01/12/2018 [facility] Immunizations Immunization Date Given Site Status Last Updated Comments Source pneumococcal 23-valent vaccine 12/31/2005 Right deltoid completed [facility] Results Order Name Results Value Reference Range Date Interpretation Comments Source Automated blood basophil count (count/volume) Automated blood basophil count (count/volume) 0.0 0.0 - 0.1 01/17/2018 [facility] Automated blood basophil count as percentage of total leukocytes Automated blood basophil count as percentage of total leukocytes 0.2 0.0 - 1.0 01/17/2018 [facility] Automated blood eosinophil count Automated blood eosinophil count 0.0 0.0 - 0.4 01/17/2018 [facility] Automated blood eosinophil count as percentage of total leukocytes Automated blood eosinophil count as percentage of total leukocytes 0.2 0.0 - 6.0 01/17/2018 [facility] Automated blood hematocrit (volume fraction) Automated blood hematocrit (volume fraction) 31.0 38.2 - 49.6 01/17/2018 [facility] Automated blood lymphocyte count as percentage ot total leukocytes Automated blood lymphocyte count as percentage ot total leukocytes 9.0 18.0 - 39.1 01/17/2018 [facility] Automated blood monocyte count as percentage of total leukocytes Automated blood monocyte count as percentage of total leukocytes 10.3 4.4 - 11.3 01/17/2018 [facility] Automated blood neutrophil count Automated blood neutrophil count 14.4 2.1 - 6.9 01/17/2018 [facility] Automated blood platelet count (count/volume) Automated blood platelet count (count/volume) 100 140 - 360 01/17/2018 [facility] Automated blood segmented neutrophil count as percentage of total leukocytes Automated blood segmented neutrophil count as percentage of total leukocytes 79.0 38.7 - 80.0 01/17/2018 [facility] Automated erythrocyte mean corpuscular hemoglobin (mass per erythrocyte) Automated erythrocyte mean corpuscular hemoglobin (mass per erythrocyte) 29.5 28 - 32 01/17/2018 [facility] Automated erythrocyte mean corpuscular hemoglobin concentration measurement (mass/volume) Automated erythrocyte mean corpuscular hemoglobin concentration measurement (mass/volume) 32.3 31 - 35 01/17/2018 [facility] Automated erythrocyte mean corpuscular volume Automated erythrocyte mean corpuscular volume 91.4 81 - 99 01/17/2018 [facility] Blood erythrocytes automated count (number/volume) Blood erythrocytes automated count (number/volume) 3.39 4.3 - 5.7 01/17/2018 [facility] Blood hemoglobin measurement (moles/volume) Blood hemoglobin measurement (moles/volume) 10.0 14.0 - 18.0 01/17/2018 [facility] Blood leukocytes automated count (number/volume) Blood leukocytes automated count (number/volume) 18.16 4.8 - 10.8 01/17/2018 [facility] Blood lymphocytes count (number/volume) Blood lymphocytes count (number/volume) 1.6 1.0 - 3.2 01/17/2018 [facility] Blood monocytes automated count (number/volume) Blood monocytes automated count (number/volume) 1.9 0.2 - 0.8 01/17/2018 [facility] Blood nucleated erythrocytes count (number/volume) Blood nucleated erythrocytes count (number/volume) 1 01/17/2018 [facility] Blood platelets count by estimate (number/volume) Blood platelets count by estimate (number/volume) SLIGHTLY DECREASED 01/17/2018 [facility] Manual blood lymphocytes/100 leukocytes Manual blood lymphocytes/100 leukocytes 9 19 - 48 01/17/2018 [facility] Manual blood monocytes/100 leukocytes Manual blood monocytes/100 leukocytes 6 3.4 - 9.0 01/17/2018 [facility] Manual blood neutrophils/100 leukocytes Manual blood neutrophils/100 leukocytes 85 40 - 74 01/17/2018 [facility] Platelet morphology Platelet morphology NORMAL 01/17/2018 [facility] RBC morphology RBC morphology NORMAL 01/17/2018 [facility] Red Cell Distribution Width 14.5 11.7 - 14.4 01/17/2018 [facility] IM GRANULOCYTES % 1.3 0.0 - 1.0 01/17/2018 [facility] Absolute Immature Granulocyte (auto 0.23 0 - 0.1 01/17/2018 [facility] Differential Total Cells Counted 100 01/17/2018 [facility] Activated partial thromboplastin time (aPTT) in platelet poor plasma bycoagulation assay Activated partial thromboplastin time (aPTT) in platelet poor plasma bycoagulation assay 34.3 23.8 - 35.5 01/17/2018 [facility] Estimated glomerular filtration rate (GFR) determination Estimated glomerular filtration rate (GFR) determination 36 60 01/17/2018 [facility] Glucose measurement Glucose measurement 192 74 - 118 01/17/2018 [facility] Serum or plasma anion gap Serum or plasma anion gap 15.7 8 - 16 01/17/2018 [facility] Serum or plasma calcium measurement (mass/volume) Serum or plasma calcium measurement (mass/volume) 7.6 8.4 - 10.2 01/17/2018 [facility] Serum or plasma carbon dioxide, total measurement (moles/volume) Serum or plasma carbon dioxide, total measurement (moles/volume) 18 22 - 29 01/17/2018 [facility] Serum or plasma chloride measurement (moles/volume) Serum or plasma chloride measurement (moles/volume) 112 98 - 107 01/17/2018 [facility] Serum or plasma creatinine measurement (mass/volume) Serum or plasma creatinine measurement (mass/volume) 1.89 0.72 - 1.25 01/17/2018 [facility] Serum or plasma potassium measurement (moles/volume) Serum or plasma potassium measurement (moles/volume) 5.7 3.5 - 5.1 01/17/2018 [facility] Serum or plasma sodium measurement (moles/volume) Serum or plasma sodium measurement (moles/volume) 140 136 - 145 01/17/2018 [facility] Serum or plasma urea nitrogen measurement (mass/volume) Serum or plasma urea nitrogen measurement (mass/volume) 23 7 - 26 01/17/2018 [facility] Serum or plasma urea nitrogen/creatinine mass ratio Serum or plasma urea nitrogen/creatinine mass ratio 12 6 - 25 01/17/2018 [facility] Automated urine sediment leukocyte count by microscopy (number/high power field) Automated urine sediment leukocyte count by microscopy (number/high power field) null 0 - 5 01/17/2018 [facility] Bacteria detection in urine sediment by light microscopy Bacteria detection in urine sediment by light microscopy MODERATE NONE 01/17/2018 [facility] Epithelial cells detection in urine sediment by light microscopy Epithelial cells detection in urine sediment by light microscopy NONE NONE 01/17/2018 [facility] Erythrocytes detection in urine sediment by light microscopy Erythrocytes detection in urine sediment by light microscopy null 0 - 5 01/17/2018 [facility] Specific gravity of Urine by Test strip Specific gravity of Urine by Test strip 1.030 1.010 - 1.025 01/17/2018 [facility] Urine clarity Urine clarity TURBID CLEAR 01/17/2018 [facility] Urine color determination Urine color determination BROWN YELLOW 01/17/2018 [facility] Urine erythrocytes detection Urine erythrocytes detection 4+ NEGATIVE 01/17/2018 [facility] Urine glucose detection Urine glucose detection NEGATIVE NEGATIVE 01/17/2018 [facility] Urine ketones detection by automated test strip Urine ketones detection by automated test strip NEGATIVE NEGATIVE 01/17/2018 [facility] Urine leukocyte esterase detection by dipstick Urine leukocyte esterase detection by dipstick 2+ NEGATIVE 01/17/2018 [facility] Urine nitrite detection Urine nitrite detection POSITIVE NEGATIVE 01/17/2018 [facility] Urine pH measurement by automated test strip Urine pH measurement by automated test strip 5 5 - 7 01/17/2018 [facility] Urine protein measurement by test strip (mass/volume) Urine protein measurement by test strip (mass/volume) 2+ NEGATIVE 01/17/2018 [facility] Urine total bilirubin measurement (mass/volume) Urine total bilirubin measurement (mass/volume) 1+ NEGATIVE 01/17/2018 [facility] Urine urobilinogen measurement by test strip (mass/volume) Urine urobilinogen measurement by test strip (mass/volume) 1 0.2 - 1 01/17/2018 [facility] Serum or plasma magnesium measurement (mass/volume) Serum or plasma magnesium measurement (mass/volume) 1.9 1.3 - 2.1 01/17/2018 [facility] Activated clotting time at point of care Activated clotting time at point of care 135 01/15/2018 [facility] INR in Platelet poor plasma by Coagulation assay INR in Platelet poor plasma by Coagulation assay 1.07 01/15/2018 [facility] Prothrombin time (PT) in platelet poor plasma by coagulation assay Prothrombin time (PT) in platelet poor plasma by coagulation assay 13.1 11.9 - 14.5 01/15/2018 [facility] Serum or plasma cholesterol in HDL measurement (mass/volume) Serum or plasma cholesterol in HDL measurement (mass/volume) 33 40 - 60 01/14/2018 [facility] Serum or plasma cholesterol in LDL measurement (mass/volume) Serum or plasma cholesterol in LDL measurement (mass/volume) 82 60 - 130 01/14/2018 [facility] Serum or plasma cholesterol measurement (mass/volume) Serum or plasma cholesterol measurement (mass/volume) 147 0 - 199 01/14/2018 [facility] Serum or plasma thyrotropin measurement by detection limit <=0.005 miu/l (units/volume) Serum or plasma thyrotropin measurement by detection limit <=0.005 miu/l (units/volume) 2.079 0.350 - 4.940 01/14/2018 [facility] Serum or plasma total cholesterol/cholesterol in HDL mass ratio Serum or plasma total cholesterol/cholesterol in HDL mass ratio 4.5 3.9 - 4.7 01/14/2018 [facility] Serum or plasma triglyceride measurement (mass/volume) Serum or plasma triglyceride measurement (mass/volume) 162 0 - 149 01/14/2018 [facility] Serum or plasma creatine kinase MB measurement (mass/volume) Serum or plasma creatine kinase MB measurement (mass/volume) 1.10 0 - 5.0 01/13/2018 [facility] Serum or plasma creatine kinase measurement (enzymatic activity/volume) Serum or plasma creatine kinase measurement (enzymatic activity/volume) 64 30 - 200 01/13/2018 [facility] Troponin I measurement by highly sensitive enzyme immunoassay Troponin I measurement by highly sensitive enzyme immunoassay 0.001 0 - 0.300 01/13/2018 [facility] Plasma globulin measurement (mass/volume) Plasma globulin measurement (mass/volume) 3.7 2.3 - 3.5 01/12/2018 [facility] Serum or plasma alanine aminotransferase measurement (enzymatic activity/volume) Serum or plasma alanine aminotransferase measurement (enzymatic activity/volume) 16 0 - 55 01/12/2018 [facility] Serum or plasma albumin measurement (mass/volume) Serum or plasma albumin measurement (mass/volume) 3.7 3.5 - 5.0 01/12/2018 [facility] Serum or plasma albumin/globulin mass ratio Serum or plasma albumin/globulin mass ratio 1.0 0.8 - 2.0 01/12/2018 [facility] Serum or plasma alkaline phosphatase measurement (enzymatic activity/volume) Serum or plasma alkaline phosphatase measurement (enzymatic activity/volume) 93 40 - 150 01/12/2018 [facility] Serum or plasma protein measurement (mass/volume) Serum or plasma protein measurement (mass/volume) 7.4 6.5 - 8.1 01/12/2018 [facility] Serum or plasma total bilirubin measurement (mass/volume) Serum or plasma total bilirubin measurement (mass/volume) 0.3 0.2 - 1.2 01/12/2018 [facility] Aspartate Amino Transf (AST/SGOT) 10 5 - 34 01/12/2018 [facility] ELECTROLYTES AGAP 11.2 meq/L 10.0 - 20.0 02/13/2017 [facility] ELECTROLYTES A/G Ratio 0.9 0.7 - 1.6 02/13/2017 [facility] ELECTROLYTES B/C Ratio 14 6 - 25 02/13/2017 [facility] ELECTROLYTES Globulin 4.1 g/dL 2.7 - 4.2 02/13/2017 [facility] ELECTROLYTES eGFR 70 mL/min/1.73m2 02/13/2017 Result Comment: The eGFR is calculated using the [...] from the National Kid[employer] Disease Education Program (NKDEP) which additionally recommends that when the eGFR is used in patients with extremes of body mass index for purposes of drug dosing, the eGFR should be multiplied by the estimated BMI. [facility] ELECTROLYTES AST 14 unit/L 0 - 37 02/13/2017 [facility] ELECTROLYTES Alk Phos 105 unit/L 39 - 136 02/13/2017 [facility] ELECTROLYTES Bili Total 0.8 mg/dL 0.2 - 1.3 02/13/2017 [facility] ELECTROLYTES Total Protein 7.9 g/dL 6.4 - 8.4 02/13/2017 [facility] ELECTROLYTES CO2 28 meq/L 24 - 32 02/13/2017 [facility] ELECTROLYTES ALT 34 unit/L 0 - 65 02/13/2017 [facility] ELECTROLYTES Albumin Lvl 3.8 g/dL 3.5 - 5.0 02/13/2017 [facility] ELECTROLYTES Sodium Lvl 140 meq/L 135 - 145 02/13/2017 [facility] ELECTROLYTES Calcium Lvl 8.2 mg/dL 8.5 - 10.5 02/13/2017 [facility] ELECTROLYTES Glucose Lvl 92 mg/dL 70 - 99 02/13/2017 [facility] ELECTROLYTES Chloride Lvl 105 meq/L 95 - 109 02/13/2017 [facility] ELECTROLYTES Potassium Lvl 4.2 meq/L 3.5 - 5.1 02/13/2017 [facility] ELECTROLYTES BUN 15 mg/dL 7 - 22 02/13/2017 [facility] ELECTROLYTES Creatinine Lvl 1.10 mg/dL 0.50 - 1.40 02/13/2017 [facility] HEMATOLOGY Hct 42.9 % 42.0 - 54.0 02/13/2017 [facility] HEMATOLOGY RBC 4.70 M/CMM 4.70 - 6.10 02/13/2017 [facility] HEMATOLOGY Hgb 14.5 g/dL 14.0 - 18.0 02/13/2017 [facility] HEMATOLOGY WBC 8.7 K/CMM 3.7 - 10.4 02/13/2017 [facility] MPV 7.5 fL 7.4 - 10.4 02/13/2017 [facility] HEMATOLOGY MCHC 33.8 g/dL 32.0 - 36.0 02/13/2017 [facility] RDW 13.4 % 11.5 - 14.5 02/13/2017 [facility] HEMATOLOGY Platelet 235 K/CMM 133 - 450 02/13/2017 [facility] HEMATOLOGY MCV 91.2 fL 80.0 - 94.0 02/13/2017 [facility] HEMATOLOGY MCH 30.8 pg 27.0 - 31.0 02/13/2017 [facility] HEMATOLOGY Basophils 0.6 % 0.0 - 1.0 02/13/2017 [facility] HEMATOLOGY Eosinophils 0.9 % 0.0 - 4.0 02/13/2017 [facility] HEMATOLOGY Monocytes 6.0 % 2.0 - 12.0 02/13/2017 [facility] HEMATOLOGY Segs-Bands # 5.9 K/CMM 1.5 - 8.1 02/13/2017 [facility] HEMATOLOGY Basophils # 0.1 K/CMM 0.0 - 0.2 02/13/2017 [facility] HEMATOLOGY Lymphocytes # 2.1 K/CMM 1.0 - 5.5 02/13/2017 [facility] HEMATOLOGY Monocytes # 0.5 K/CMM 0.0 - 0.8 02/13/2017 [facility] HEMATOLOGY Eosinophils # 0.1 K/CMM 0.0 - 0.5 02/13/2017 [facility] HEMATOLOGY Segs 67.8 % 45.0 - 75.0 02/13/2017 [facility] HEMATOLOGY Lymphocytes 24.7 % 20.0 - 40.0 02/13/2017 [facility] LIPIDS VLDL 30 02/13/2017 [facility] LIPIDS LDL (Calculated) 92 mg/dL <=99 mg/dL 02/13/2017 [facility] LIPIDS HDL 35 mg/dL >=61 mg/dL 02/13/2017 [facility] LIPIDS Chol 157 mg/dL <=199 mg/dL 02/13/2017 [facility] LIPIDS Trig 152 mg/dL <=149 mg/dL 02/13/2017 [facility] LIPIDS CHD Risk 4.49 4.00 - 7.30 02/13/2017 [facility] Vital Signs Vital Sign Value Date Comments Source Temperature Oral (F) 97.8 F 02/13/2017 [facility] Heart Rate 74 02/13/2017 [facility] Systolic (mm Hg) 172 02/13/2017 [facility] Diastolic (mm Hg) 98 02/13/2017 [facility] BMI Calculated 31.23 02/13/2017 [facility] Weight 90.455 02/13/2017 [facility] Height 170.18 cm 02/13/2017 [facility] Encounters Location Location Details Encounter Type Encounter Number Reason For Visit Attending Provider ADM Date DC Date Status Source [facility] Bedded Outpatient [id number] Raymundo Kuhn 02/14/2017 02/15/2017 [facility] Discharged Inpatient [id number] ALEXIA WILSON MD 01/12/2018 01/17/2018 [facility] Procedures Procedure Code Date Perfomer Comments Source Insertion of cardiac pacemaker [id number] 02/14/2012 [facility] Stent placement [id number] [facility]
--- OUTSIDE RECORDS SUMMARY | 2018-06-14 10:48 | XMS REPORT ---
Author Author [facility] Address Unknown Phone Unavailable Care Team Providers Care Track Repair Worker Name Role Phone PATRICA CHENG Unavailable Unavailable DINO LIND Unavailable Unavailable ALEXIA WILSON Unavailable Unavailable Problems This patient has no known problems. Allergies, Adverse Reactions, Alerts This patient has no known allergies or adverse reactions. Medications This patient has no known medications. Results Test Description Test Time Test Comments Text Results Atomic Results Result Comments BASIC METABOLIC PANEL 2018-02-05 06:04:00 SODIUM (BEAKER) (test kxrt=920) 140 meq/L 136-145 POTASSIUM (BEAKER) (test tddq=505) 4.2 meq/L 3.5-5.1 CHLORIDE (BEAKER) (test xilv=978) 106 meq/L 98-107 CO2 (BEAKER) (test xyuh=123) 24 meq/L 22-29 BLOOD UREA NITROGEN (BEAKER) (test uyme=043) 18 mg/dL 7-21 CREATININE (BEAKER) (test vcah=646) 0.79 mg/dL 0.57-1.25 GLUCOSE RANDOM (BEAKER) (test nmzw=848) 96 mg/dL 70-105 CALCIUM (BEAKER) (test pccp=008) 9.1 mg/dL 8.4-10.2 EGFR (BEAKER) (test lwxq=6118) mL/min/1.73 sq m INSUFFICIENT CLINICAL DATA TO CALCULATE ESTIMATED GFR. [id number] 06:01:00* Test Item Value Reference Range Comments PHOSPHORUS (BEAKER) (test qoel=039) 3.6 mg/dL 2.3-4.7 [id number] 06:01:00* Test Item Value Reference Range Comments MAGNESIUM (BEAKER) (test ying=978) 2.0 mg/dL 1.6-2.6 CBC W/PLT COUNT & AUTO [id number] 05:41:00* Test Item Value Reference Range Comments WHITE BLOOD CELL COUNT (BEAKER) (test yllo=841) 8.2 K/ L 3.5-10.5 RED BLOOD CELL COUNT (BEAKER) (test cbmw=312) 3.35 M/ L 4.63-6.08 HEMOGLOBIN (BEAKER) (test fbgr=829) 9.6 GM/DL 13.7-17.5 HEMATOCRIT (BEAKER) (test ebpu=178) 31.9 % 40.1-51.0 MEAN CORPUSCULAR VOLUME (BEAKER) (test dumn=109) 95.2 fL 79.0-92.2 MEAN CORPUSCULAR HEMOGLOBIN (BEAKER) (test nssx=590) 28.7 pg 25.7-32.2 MEAN CORPUSCULAR HEMOGLOBIN CONC (BEAKER) (test mxbw=617) 30.1 GM/DL 32.3-36.5 RED CELL DISTRIBUTION WIDTH (BEAKER) (test mnoi=130) 15.4 % 11.6-14.4 PLATELET COUNT (BEAKER) (test suap=871) 165 K/CU MM 150-450 MEAN PLATELET VOLUME (BEAKER) (test ethi=822) 9.7 fL 9.4-12.4 NUCLEATED RED BLOOD CELLS (BEAKER) (test chzk=046) 0 /100 WBC 0-0 NEUTROPHILS RELATIVE PERCENT (BEAKER) (test pupx=669) 64 % LYMPHOCYTES RELATIVE PERCENT (BEAKER) (test qoxj=842) 23 % MONOCYTES RELATIVE PERCENT (BEAKER) (test pzpq=245) 9 % EOSINOPHILS RELATIVE PERCENT (BEAKER) (test pcfz=628) 4 % BASOPHILS RELATIVE PERCENT (BEAKER) (test hsye=846) 0 % NEUTROPHILS ABSOLUTE COUNT (BEAKER) (test pgtt=334) 5.23 K/ L 1.78-5.38 LYMPHOCYTES ABSOLUTE COUNT (BEAKER) (test cnya=952) 1.86 K/ L 1.32-3.57 MONOCYTES ABSOLUTE COUNT (BEAKER) (test snxw=729) 0.70 K/ L 0.30-0.82 EOSINOPHILS ABSOLUTE COUNT (BEAKER) (test rhro=102) 0.29 K/ L 0.04-0.54 BASOPHILS ABSOLUTE COUNT (BEAKER) (test tyzt=828) 0.03 K/ L 0.01-0.08 IMMATURE GRANULOCYTES-RELATIVE PERCENT (BEAKER) (test pbyw=4080) 1 % 0-1 BASIC METABOLIC [id number] 08:45:00* Test Item Value Reference Range Comments SODIUM (BEAKER) (test lqlt=362) 138 meq/L 136-145 POTASSIUM (BEAKER) (test oyoq=278) 4.5 meq/L 3.5-5.1 CHLORIDE (BEAKER) (test iewx=788) 104 meq/L 98-107 CO2 (BEAKER) (test sgzk=134) 27 meq/L 22-29 BLOOD UREA NITROGEN (BEAKER) (test zoqe=400) 15 mg/dL 7-21 CREATININE (BEAKER) (test rlcb=214) 0.87 mg/dL 0.57-1.25 GLUCOSE RANDOM (BEAKER) (test mdgw=989) 131 mg/dL 70-105 CALCIUM (BEAKER) (test uece=804) 9.0 mg/dL 8.4-10.2 EGFR (BEAKER) (test wmvj=2236) mL/min/1.73 sq m INSUFFICIENT CLINICAL DATA TO CALCULATE ESTIMATED GFR. [id number] 08:44:00* Test Item Value Reference Range Comments PHOSPHORUS (BEAKER) (test bhrd=910) 2.7 mg/dL 2.3-4.7 [id number] 08:44:00* Test Item Value Reference Range Comments MAGNESIUM (BEAKER) (test qrrb=334) 2.2 mg/dL 1.6-2.6 CBC W/PLT COUNT & AUTO [id number] 08:34:00* Test Item Value Reference Range Comments WHITE BLOOD CELL COUNT (BEAKER) (test azgj=758) 11.5 K/ L 3.5-10.5 RED BLOOD CELL COUNT (BEAKER) (test kneo=043) 3.17 M/ L 4.63-6.08 HEMOGLOBIN (BEAKER) (test lmsf=060) 9.3 GM/DL 13.7-17.5 HEMATOCRIT (BEAKER) (test ouqn=770) 30.4 % 40.1-51.0 MEAN CORPUSCULAR VOLUME (BEAKER) (test zafe=547) 95.9 fL 79.0-92.2 MEAN CORPUSCULAR HEMOGLOBIN (BEAKER) (test wzwb=262) 29.3 pg 25.7-32.2 MEAN CORPUSCULAR HEMOGLOBIN CONC (BEAKER) (test mifo=343) 30.6 GM/DL 32.3-36.5 RED CELL DISTRIBUTION WIDTH (BEAKER) (test xlhy=430) 15.3 % 11.6-14.4 PLATELET COUNT (BEAKER) (test menu=491) 274 K/CU MM 150-450 MEAN PLATELET VOLUME (BEAKER) (test fvbw=418) 9.1 fL 9.4-12.4 NUCLEATED RED BLOOD CELLS (BEAKER) (test thbc=913) 0 /100 WBC 0-0 NEUTROPHILS RELATIVE PERCENT (BEAKER) (test pzpl=862) 77 % LYMPHOCYTES RELATIVE PERCENT (BEAKER) (test vclb=267) 12 % MONOCYTES RELATIVE PERCENT (BEAKER) (test lnbl=431) 6 % EOSINOPHILS RELATIVE PERCENT (BEAKER) (test ungc=979) 2 % BASOPHILS RELATIVE PERCENT (BEAKER) (test icbp=855) 1 % NEUTROPHILS ABSOLUTE COUNT (BEAKER) (test sohx=379) 8.86 K/ L 1.78-5.38 LYMPHOCYTES ABSOLUTE COUNT (BEAKER) (test icnp=340) 1.41 K/ L 1.32-3.57 MONOCYTES ABSOLUTE COUNT (BEAKER) (test dlzr=564) 0.69 K/ L 0.30-0.82 EOSINOPHILS ABSOLUTE COUNT (BEAKER) (test psxg=388) 0.27 K/ L 0.04-0.54 BASOPHILS ABSOLUTE COUNT (BEAKER) (test pgfh=129) 0.06 K/ L 0.01-0.08 IMMATURE GRANULOCYTES-RELATIVE PERCENT (BEAKER) (test jfkh=6440) 2 % 0-1 POCT-GLUCOSE [id number] 15:58:00* Test Item Value Reference Range Comments POC-GLUCOSE METER (BEAKER) (test dyds=6436) 141 mg/dL 70-110 [address]ED AT [address] [address] URINE [id number] 15:16:00* Test Item Value Reference Range Comments CULTURE (BEAKER) (test xduu=8467) See comment <10,000 col/mL Gram negative rodsPOCT-GLUCOSE [id number] 11:24:00* Test Item Value Reference Range Comments POC-GLUCOSE METER (BEAKER) (test fcwy=6299) 114 mg/dL 70-110 TESTED AT [address] [address] POCT-GLUCOSE [id number] 06:11:00* Test Item Value Reference Range Comments POC-GLUCOSE METER (BEAKER) (test pcpm=3821) 104 mg/dL 70-110 TESTED AT [address] [address] POCT-GLUCOSE [id number] 20:23:00* Test Item Value Reference Range Comments POC-GLUCOSE METER (BEAKER) (test inwb=4347) 192 mg/dL 70-110 TESTED AT [address] [address] POCT-GLUCOSE [id number] 16:37:00* Test Item Value Reference Range Comments POC-GLUCOSE METER (BEAKER) (test magg=6615) 107 mg/dL 70-110 TESTED AT [address] [address] POCT-GLUCOSE [id number] 11:42:00* Test Item Value Reference Range Comments POC-GLUCOSE METER (BEAKER) (test hhdu=4187) 133 mg/dL 70-110 TESTED AT [address] [address] URINALYSIS W/ [id number] 07:31:00* Test Item Value Reference Range Comments COLOR (BEAKER) (test nkji=988) Yellow CLARITY (BEAKER) (test btpw=075) Clear SPECIFIC GRAVITY UA (BEAKER) (test alcq=772) 1.009 1.001-1.035 PH UA (BEAKER) (test vkrz=234) 7.5 5.0-8.0 PROTEIN UA (BEAKER) (test agxa=921) Negative Negative GLUCOSE UA (BEAKER) (test hyqu=806) Negative Negative KETONES UA (BEAKER) (test eniu=004) Negative Negative BILIRUBIN UA (BEAKER) (test acih=300) Negative Negative BLOOD UA (BEAKER) (test gibr=639) Negative Negative NITRITE UA (BEAKER) (test myhl=586) Negative Negative LEUKOCYTE ESTERASE UA (BEAKER) (test kjdf=611) Negative Negative UROBILINOGEN UA (BEAKER) (test klgg=541) 0.2 mg/dL 0.2-1.0 RBC UA (BEAKER) (test rexk=820) 1 /HPF WBC UA (BEAKER) (test coxn=383) 1 /HPF MUCUS (BEAKER) (test xpan=2259) Rare SQUAMOUS EPITHELIAL (BEAKER) (test ddzq=096) 1 /HPF SOURCE(BEAKER) (test aclk=8330) Urine, Voided BASIC METABOLIC [id number] 06:49:00* Test Item Value Reference Range Comments SODIUM (BEAKER) (test rpht=169) 139 meq/L 136-145 POTASSIUM (BEAKER) (test bcvn=049) 4.5 meq/L 3.5-5.1 CHLORIDE (BEAKER) (test mbzh=512) 105 meq/L 98-107 CO2 (BEAKER) (test sddx=762) 27 meq/L 22-29 BLOOD UREA NITROGEN (BEAKER) (test yhzj=211) 13 mg/dL 7-21 CREATININE (BEAKER) (test jtpn=827) 0.81 mg/dL 0.57-1.25 GLUCOSE RANDOM (BEAKER) (test hlir=979) 104 mg/dL 70-105 CALCIUM (BEAKER) (test qjxw=221) 9.1 mg/dL 8.4-10.2 EGFR (BEAKER) (test lqok=4926) mL/min/1.73 sq m INSUFFICIENT CLINICAL DATA TO CALCULATE ESTIMATED GFR. CBC W/PLT COUNT & AUTO [id number] 06:19:00* Test Item Value Reference Range Comments WHITE BLOOD CELL COUNT (BEAKER) (test vnfg=636) 12.0 K/ L 3.5-10.5 RED BLOOD CELL COUNT (BEAKER) (test wwjx=549) 3.22 M/ L 4.63-6.08 HEMOGLOBIN (BEAKER) (test cjxl=953) 9.4 GM/DL 13.7-17.5 HEMATOCRIT (BEAKER) (test agml=206) 30.8 % 40.1-51.0 MEAN CORPUSCULAR VOLUME (BEAKER) (test bbsb=041) 95.7 fL 79.0-92.2 MEAN CORPUSCULAR HEMOGLOBIN (BEAKER) (test nhmn=869) 29.2 pg 25.7-32.2 MEAN CORPUSCULAR HEMOGLOBIN CONC (BEAKER) (test cjyi=049) 30.5 GM/DL 32.3-36.5 RED CELL DISTRIBUTION WIDTH (BEAKER) (test xjqt=339) 15.5 % 11.6-14.4 PLATELET COUNT (BEAKER) (test pcsl=456) 300 K/CU MM 150-450 MEAN PLATELET VOLUME (BEAKER) (test gdwu=793) 9.6 fL 9.4-12.4 NUCLEATED RED BLOOD CELLS (BEAKER) (test luub=021) 0 /100 WBC 0-0 NEUTROPHILS RELATIVE PERCENT (BEAKER) (test ithw=145) 68 % LYMPHOCYTES RELATIVE PERCENT (BEAKER) (test owlu=222) 17 % MONOCYTES RELATIVE PERCENT (BEAKER) (test ttgy=658) 9 % EOSINOPHILS RELATIVE PERCENT (BEAKER) (test tkog=988) 3 % BASOPHILS RELATIVE PERCENT (BEAKER) (test edkv=598) 1 % NEUTROPHILS ABSOLUTE COUNT (BEAKER) (test miai=828) 8.14 K/ L 1.78-5.38 LYMPHOCYTES ABSOLUTE COUNT (BEAKER) (test nxak=337) 2.01 K/ L 1.32-3.57 MONOCYTES ABSOLUTE COUNT (BEAKER) (test lscs=185) 1.05 K/ L 0.30-0.82 EOSINOPHILS ABSOLUTE COUNT (BEAKER) (test tnko=222) 0.35 K/ L 0.04-0.54 BASOPHILS ABSOLUTE COUNT (BEAKER) (test uzdh=047) 0.06 K/ L 0.01-0.08 IMMATURE GRANULOCYTES-RELATIVE PERCENT (BEAKER) (test aczs=3012) 3 % 0-1 POCT-GLUCOSE [id number] 06:10:00* Test Item Value Reference Range Comments POC-GLUCOSE METER (BEAKER) (test bjtr=3869) 148 mg/dL 70-110 [address]ED AT [address] [address] POCT-GLUCOSE [id number] 20:06:00* Test Item Value Reference Range Comments POC-GLUCOSE METER (BEAKER) (test zhwy=1161) 128 mg/dL 70-110 TESTED AT [address] [address] POCT-GLUCOSE [id number] 17:26:00* Test Item Value Reference Range Comments POC-GLUCOSE METER (BEAKER) (test rnau=6056) 190 mg/dL 70-110 TESTED AT [address] [address] POCT-GLUCOSE [id number] 08:47:00* Test Item Value Reference Range Comments POC-GLUCOSE METER (BEAKER) (test qwgc=1020) 123 mg/dL 70-[address] [facility] [address] [facility] [address] BASIC METABOLIC [id number] 07:18:00* Test Item Value Reference Range Comments SODIUM (BEAKER) (test pazn=919) 139 meq/L 136-145 POTASSIUM (BEAKER) (test jpty=994) 4.3 meq/L 3.5-5.1 CHLORIDE (BEAKER) (test ugil=369) 105 meq/L 98-107 CO2 (BEAKER) (test nzmo=589) 27 meq/L 22-29 BLOOD UREA NITROGEN (BEAKER) (test shms=112) 13 mg/dL 7-21 CREATININE (BEAKER) (test fbxl=674) 0.83 mg/dL 0.57-1.25 GLUCOSE RANDOM (BEAKER) (test jaqs=120) 134 mg/dL 70-105 CALCIUM (BEAKER) (test ijzn=611) 9.1 mg/dL 8.4-10.2 EGFR (BEAKER) (test qxwj=0680) mL/min/1.73 sq m INSUFFICIENT CLINICAL DATA TO CALCULATE ESTIMATED GFR. [id number] 07:17:00* Test Item Value Reference Range Comments MAGNESIUM (BEAKER) (test jygt=382) 2.0 mg/dL 1.6-2.6 CBC W/PLT COUNT & AUTO [id number] 06:58:00* Test Item Value Reference Range Comments WHITE BLOOD CELL COUNT (BEAKER) (test wybe=922) 10.5 K/ L 3.5-10.5 RED BLOOD CELL COUNT (BEAKER) (test sqwo=993) 3.14 M/ L 4.63-6.08 HEMOGLOBIN (BEAKER) (test kzqx=083) 9.2 GM/DL 13.7-17.5 HEMATOCRIT (BEAKER) (test semf=993) 29.8 % 40.1-51.0 MEAN CORPUSCULAR VOLUME (BEAKER) (test gppq=546) 94.9 fL 79.0-92.2 MEAN CORPUSCULAR HEMOGLOBIN (BEAKER) (test vfbw=468) 29.3 pg 25.7-32.2 MEAN CORPUSCULAR HEMOGLOBIN CONC (BEAKER) (test qkvi=873) 30.9 GM/DL 32.3-36.5 RED CELL DISTRIBUTION WIDTH (BEAKER) (test ajer=266) 15.5 % 11.6-14.4 PLATELET COUNT (BEAKER) (test oqfk=180) 293 K/CU MM 150-450 MEAN PLATELET VOLUME (BEAKER) (test plrf=163) 9.5 fL 9.4-12.4 NUCLEATED RED BLOOD CELLS (BEAKER) (test mmek=096) 0 /100 WBC 0-0 NEUTROPHILS RELATIVE PERCENT (BEAKER) (test qtyi=613) 73 % LYMPHOCYTES RELATIVE PERCENT (BEAKER) (test jkbb=930) 14 % MONOCYTES RELATIVE PERCENT (BEAKER) (test aktd=309) 6 % EOSINOPHILS RELATIVE PERCENT (BEAKER) (test fwil=861) 3 % BASOPHILS RELATIVE PERCENT (BEAKER) (test fxrr=559) 1 % NEUTROPHILS ABSOLUTE COUNT (BEAKER) (test kuwa=012) 7.69 K/ L 1.78-5.38 LYMPHOCYTES ABSOLUTE COUNT (BEAKER) (test vefa=515) 1.51 K/ L 1.32-3.57 MONOCYTES ABSOLUTE COUNT (BEAKER) (test widh=184) 0.61 K/ L 0.30-0.82 EOSINOPHILS ABSOLUTE COUNT (BEAKER) (test kkti=576) 0.36 K/ L 0.04-0.54 BASOPHILS ABSOLUTE COUNT (BEAKER) (test sync=148) 0.05 K/ L 0.01-0.08 IMMATURE GRANULOCYTES-RELATIVE PERCENT (BEAKER) (test cikg=5087) 3 % 0-1 POCT-GLUCOSE [id number] 21:17:00* Test Item Value Reference Range Comments POC-GLUCOSE METER (BEAKER) (test wvoz=4626) 154 mg/dL 70-110 TESTED AT [address] [address] POCT-GLUCOSE [id number] 17:29:00* Test Item Value Reference Range Comments POC-GLUCOSE METER (BEAKER) (test qxky=2200) 132 mg/dL 70-110 TESTED AT [address] [address] TISSUE [id number] 14:36:00Surgical Pathology Report Case: [id number] Authorizing Provider: Kellen Dallas MD Collected: 01/18/2018 1631 Ordering Location: 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 Signing Pathologist Direct Phone Line: [phone] signed by Timi Gtz MD on 01/25/2018 at 2:36 [id number], [id number] leg ischemia Right below leg amputation The specimen is received in a biohazard bag labeled with the patient's information and labeled "right below leg [...] decalcification; A7, cross section of fifth digit s ubmitted for decalcification. CG/ewPOCT-GLUCOSE [id number] 11:49:00* Test Item Value Reference Range Comments POC-GLUCOSE METER (BEAKER) (test aage=2879) 115 mg/dL 70-[address] [facility] [address] [facility] [address] POCT-GLUCOSE [id number] 08:19:00* Test Item Value Reference Range Comments POC-GLUCOSE METER (BEAKER) (test iaxl=4568) 117 mg/dL 70-[address] [facility] [address] [facility] [address] BASIC METABOLIC [id number] 07:23:00* Test Item Value Reference Range Comments SODIUM (BEAKER) (test gkon=020) 137 meq/L 136-145 POTASSIUM (BEAKER) (test whwk=545) 4.2 meq/L 3.5-5.1 CHLORIDE (BEAKER) (test yrzl=903) 107 meq/L 98-107 CO2 (BEAKER) (test dpfa=798) 23 meq/L 22-29 BLOOD UREA NITROGEN (BEAKER) (test fmxm=487) 13 mg/dL 7-21 CREATININE (BEAKER) (test raum=720) 0.78 mg/dL 0.57-1.25 GLUCOSE RANDOM (BEAKER) (test jdzx=938) 108 mg/dL 70-105 CALCIUM (BEAKER) (test jhky=133) 8.8 mg/dL 8.4-10.2 EGFR (BEAKER) (test pszb=5785) mL/min/1.73 sq m INSUFFICIENT CLINICAL DATA TO CALCULATE ESTIMATED GFR. [id number] 07:22:00* Test Item Value Reference Range Comments MAGNESIUM (BEAKER) (test hrua=599) 2.0 mg/dL 1.6-2.6 CBC W/PLT COUNT & AUTO [id number] 06:42:00* Test Item Value Reference Range Comments WHITE BLOOD CELL COUNT (BEAKER) (test nbel=648) 9.4 K/ L 3.5-10.5 RED BLOOD CELL COUNT (BEAKER) (test orzq=062) 2.89 M/ L 4.63-6.08 HEMOGLOBIN (BEAKER) (test xfoj=149) 8.4 GM/DL 13.7-17.5 HEMATOCRIT (BEAKER) (test ohit=171) 27.3 % 40.1-51.0 MEAN CORPUSCULAR VOLUME (BEAKER) (test cnqs=025) 94.5 fL 79.0-92.2 MEAN CORPUSCULAR HEMOGLOBIN (BEAKER) (test bnzj=463) 29.1 pg 25.7-32.2 MEAN CORPUSCULAR HEMOGLOBIN CONC (BEAKER) (test bupm=273) 30.8 GM/DL 32.3-36.5 RED CELL DISTRIBUTION WIDTH (BEAKER) (test gury=474) 15.4 % 11.6-14.4 PLATELET COUNT (BEAKER) (test yndw=080) 342 K/CU MM 150-450 MEAN PLATELET VOLUME (BEAKER) (test gmwt=214) 10.4 fL 9.4-12.4 NUCLEATED RED BLOOD CELLS (BEAKER) (test fvjr=238) 0 /100 WBC 0-0 NEUTROPHILS RELATIVE PERCENT (BEAKER) (test pgjq=185) 64 % LYMPHOCYTES RELATIVE PERCENT (BEAKER) (test smrc=519) 20 % MONOCYTES RELATIVE PERCENT (BEAKER) (test kvjt=650) 8 % EOSINOPHILS RELATIVE PERCENT (BEAKER) (test qzao=595) 4 % BASOPHILS RELATIVE PERCENT (BEAKER) (test ofhu=971) 0 % NEUTROPHILS ABSOLUTE COUNT (BEAKER) (test ixfm=997) 5.97 K/ L 1.78-5.38 LYMPHOCYTES ABSOLUTE COUNT (BEAKER) (test tlly=199) 1.89 K/ L 1.32-3.57 MONOCYTES ABSOLUTE COUNT (BEAKER) (test rllj=669) 0.78 K/ L 0.30-0.82 EOSINOPHILS ABSOLUTE COUNT (BEAKER) (test gmnk=616) 0.36 K/ L 0.04-0.54 BASOPHILS ABSOLUTE COUNT (BEAKER) (test leqg=389) 0.03 K/ L 0.01-0.08 IMMATURE GRANULOCYTES-RELATIVE PERCENT (BEAKER) (test kbjq=8934) 3 % 0-1 POCT-GLUCOSE [id number] 21:31:00* Test Item Value Reference Range Comments POC-GLUCOSE METER (BEAKER) (test xymj=7901) 128 mg/dL 70-110 TESTED AT [address] [address] POCT-GLUCOSE [id number] 17:15:00* Test Item Value Reference Range Comments POC-GLUCOSE METER (BEAKER) (test esrh=2011) 125 mg/dL 70-110 TESTED AT [address] [address] POCT-GLUCOSE [id number] 12:01:00* Test Item Value Reference Range Comments POC-GLUCOSE METER (BEAKER) (test arkf=5586) 131 mg/dL 70-110 TESTED AT [address] [address] POCT-GLUCOSE [id number] 07:56:00* Test Item Value Reference Range Comments POC-GLUCOSE METER (BEAKER) (test pnje=3028) 111 mg/dL 70-110 TESTED AT [address] [address] CBC W/PLT COUNT & AUTO [id number] 06:06:00* Test Item Value Reference Range Comments WHITE BLOOD CELL COUNT (BEAKER) (test ijiq=879) 7.3 K/ L 3.5-10.5 RED BLOOD CELL COUNT (BEAKER) (test qcej=287) 2.99 M/ L 4.63-6.08 HEMOGLOBIN (BEAKER) (test ihun=855) 8.8 GM/DL 13.7-17.5 HEMATOCRIT (BEAKER) (test pneq=165) 28.4 % 40.1-51.0 MEAN CORPUSCULAR VOLUME (BEAKER) (test mlps=836) 95.0 fL 79.0-92.2 MEAN CORPUSCULAR HEMOGLOBIN (BEAKER) (test ljdv=069) 29.4 pg 25.7-32.2 MEAN CORPUSCULAR HEMOGLOBIN CONC (BEAKER) (test fjel=821) 31.0 GM/DL 32.3-36.5 RED CELL DISTRIBUTION WIDTH (BEAKER) (test fzhe=184) 15.4 % 11.6-14.4 PLATELET COUNT (BEAKER) (test cubz=177) 318 K/CU MM 150-450 Discordant PLT result compared to previous one; Clinical correlation required. MEAN PLATELET VOLUME (BEAKER) (test newv=602) 9.7 fL 9.4-12.4 NUCLEATED RED BLOOD CELLS (BEAKER) (test edkd=927) 0 /100 WBC 0-0 NEUTROPHILS RELATIVE PERCENT (BEAKER) (test vxpx=385) 66 % LYMPHOCYTES RELATIVE PERCENT (BEAKER) (test ogma=875) 18 % MONOCYTES RELATIVE PERCENT (BEAKER) (test rajk=223) 7 % EOSINOPHILS RELATIVE PERCENT (BEAKER) (test olda=189) 4 % BASOPHILS RELATIVE PERCENT (BEAKER) (test voec=799) 0 % NEUTROPHILS ABSOLUTE COUNT (BEAKER) (test wjbg=610) 4.86 K/ L 1.78-5.38 LYMPHOCYTES ABSOLUTE COUNT (BEAKER) (test ozfi=633) 1.30 K/ L 1.32-3.57 MONOCYTES ABSOLUTE COUNT (BEAKER) (test edpo=788) 0.51 K/ L 0.30-0.82 EOSINOPHILS ABSOLUTE COUNT (BEAKER) (test cqbg=473) 0.32 K/ L 0.04-0.54 BASOPHILS ABSOLUTE COUNT (BEAKER) (test ljks=766) 0.03 K/ L 0.01-0.08 IMMATURE GRANULOCYTES-RELATIVE PERCENT (BEAKER) (test jarj=2066) 4 % 0-1 BASIC METABOLIC [id number] 05:43:00* Test Item Value Reference Range Comments SODIUM (BEAKER) (test ppnc=992) 140 meq/L 136-145 POTASSIUM (BEAKER) (test fgoa=583) 3.9 meq/L 3.5-5.1 CHLORIDE (BEAKER) (test upsp=980) 109 meq/L 98-107 CO2 (BEAKER) (test lhpm=722) 25 meq/L 22-29 BLOOD UREA NITROGEN (BEAKER) (test gmhe=956) 12 mg/dL 7-21 CREATININE (BEAKER) (test kakl=150) 0.82 mg/dL 0.57-1.25 GLUCOSE RANDOM (BEAKER) (test dfmr=679) 101 mg/dL 70-105 CALCIUM (BEAKER) (test kmfp=598) 8.8 mg/dL 8.4-10.2 EGFR (BEAKER) (test lkmv=7420) mL/min/1.73 sq m INSUFFICIENT CLINICAL DATA TO CALCULATE ESTIMATED GFR. [id number] 05:42:00* Test Item Value Reference Range Comments MAGNESIUM (BEAKER) (test ufto=055) 2.1 mg/dL 1.6-2.6 POCT-GLUCOSE [id number] 21:05:00* Test Item Value Reference Range Comments POC-GLUCOSE METER (BEAKER) (test lmcg=0868) 131 mg/dL 70-110 TESTED AT [address] [address] POCT-GLUCOSE [id number] 16:32:00* Test Item Value Reference Range Comments POC-GLUCOSE METER (BEAKER) (test yick=5131) 132 mg/dL 70-110 TESTED AT [address] [address] POCT-GLUCOSE [id number] 12:17:00* Test Item Value Reference Range Comments POC-GLUCOSE METER (BEAKER) (test ylkv=0817) 110 mg/dL 70-110 TESTED AT [address] [address] POCT-GLUCOSE [id number] 08:02:00* Test Item Value Reference Range Comments POC-GLUCOSE METER (BEAKER) (test oaru=1494) 113 mg/dL 70-[address] [facility] [address] [facility] [address] [id number] 06:52:00* Test Item Value Reference Range Comments MAGNESIUM (BEAKER) (test zlnu=591) 1.7 mg/dL 1.6-2.6 BASIC METABOLIC [id number] 06:52:00* Test Item Value Reference Range Comments SODIUM (BEAKER) (test wtwt=631) 137 meq/L 136-145 POTASSIUM (BEAKER) (test txqa=068) 3.4 meq/L 3.5-5.1 CHLORIDE (BEAKER) (test rnnu=959) 106 meq/L 98-107 CO2 (BEAKER) (test pjes=620) 24 meq/L 22-29 BLOOD UREA NITROGEN (BEAKER) (test yxhw=397) 11 mg/dL 7-21 CREATININE (BEAKER) (test dxjk=975) 0.76 mg/dL 0.57-1.25 GLUCOSE RANDOM (BEAKER) (test ttwz=991) 122 mg/dL 70-105 CALCIUM (BEAKER) (test fvyx=197) 8.6 mg/dL 8.4-10.2 EGFR (BEAKER) (test ofrg=5951) mL/min/1.73 sq m INSUFFICIENT CLINICAL DATA TO CALCULATE ESTIMATED GFR. CBC W/PLT COUNT & AUTO [id number] 05:10:00* Test Item Value Reference Range Comments WHITE BLOOD CELL COUNT (BEAKER) (test xlae=488) 8.8 K/ L 3.5-10.5 RED BLOOD CELL COUNT (BEAKER) (test ttem=471) 2.87 M/ L 4.63-6.08 HEMOGLOBIN (BEAKER) (test bjza=522) 8.4 GM/DL 13.7-17.5 HEMATOCRIT (BEAKER) (test swxs=882) 27.8 % 40.1-51.0 MEAN CORPUSCULAR VOLUME (BEAKER) (test noke=537) 96.9 fL 79.0-92.2 MEAN CORPUSCULAR HEMOGLOBIN (BEAKER) (test yswi=183) 29.3 pg 25.7-32.2 MEAN CORPUSCULAR HEMOGLOBIN CONC (BEAKER) (test teri=833) 30.2 GM/DL 32.3-36.5 RED CELL DISTRIBUTION WIDTH (BEAKER) (test cyfg=129) 15.1 % 11.6-14.4 PLATELET COUNT (BEAKER) (test tati=013) 177 K/CU MM 150-450 MEAN PLATELET VOLUME (BEAKER) (test odae=394) 10.4 fL 9.4-12.4 NUCLEATED RED BLOOD CELLS (BEAKER) (test wyuc=981) 0 /100 WBC 0-0 NEUTROPHILS RELATIVE PERCENT (BEAKER) (test hdbj=310) 68 % LYMPHOCYTES RELATIVE PERCENT (BEAKER) (test wwhh=618) 18 % MONOCYTES RELATIVE PERCENT (BEAKER) (test pzzt=232) 7 % EOSINOPHILS RELATIVE PERCENT (BEAKER) (test fdic=537) 3 % BASOPHILS RELATIVE PERCENT (BEAKER) (test lgig=717) 1 % NEUTROPHILS ABSOLUTE COUNT (BEAKER) (test wbgj=634) 5.95 K/ L 1.78-5.38 LYMPHOCYTES ABSOLUTE COUNT (BEAKER) (test amrr=576) 1.60 K/ L 1.32-3.57 MONOCYTES ABSOLUTE COUNT (BEAKER) (test aalq=361) 0.62 K/ L 0.30-0.82 EOSINOPHILS ABSOLUTE COUNT (BEAKER) (test ckny=202) 0.28 K/ L 0.04-0.54 BASOPHILS ABSOLUTE COUNT (BEAKER) (test onhs=064) 0.06 K/ L 0.01-0.08 IMMATURE GRANULOCYTES-RELATIVE PERCENT (BEAKER) (test dikc=6725) 3 % 0-1 POCT-GLUCOSE [id number] 22:29:00* Test Item Value Reference Range Comments POC-GLUCOSE METER (BEAKER) (test grwr=4942) 128 mg/dL 70-[address] [facility] [address] [facility] [address] POCT-GLUCOSE [id number] 17:25:00* Test Item Value Reference Range Comments POC-GLUCOSE METER (BEAKER) (test jagv=1967) 133 mg/dL 70-110 TESTED AT [place] [id number] [facility] [address] POCT-GLUCOSE [id number] 11:54:00* Test Item Value Reference Range Comments POC-GLUCOSE METER (BEAKER) (test qtex=0816) 117 mg/dL 70-[address] [facility] [address] [address] CBC W/PLT COUNT & AUTO [id number] 11:46:00* Test Item Value Reference Range Comments WHITE BLOOD CELL COUNT (BEAKER) (test hpiz=426) 10.0 K/ L 3.5-10.5 RED BLOOD CELL COUNT (BEAKER) (test epib=308) 2.85 M/ L 4.63-6.08 HEMOGLOBIN (BEAKER) (test tbhb=386) 8.4 GM/DL 13.7-17.5 HEMATOCRIT (BEAKER) (test hkww=189) 25.6 % 40.1-51.0 MEAN CORPUSCULAR VOLUME (BEAKER) (test ovcj=254) 89.8 fL 79.0-92.2 MEAN CORPUSCULAR HEMOGLOBIN (BEAKER) (test qbkj=954) 29.5 pg 25.7-32.2 MEAN CORPUSCULAR HEMOGLOBIN CONC (BEAKER) (test enyj=585) 32.8 GM/DL 32.3-36.5 RED CELL DISTRIBUTION WIDTH (BEAKER) (test ylyl=640) 14.7 % 11.6-14.4 PLATELET COUNT (BEAKER) (test wcxj=189) 208 K/CU MM 150-450 MEAN PLATELET VOLUME (BEAKER) (test yyjz=249) 9.9 fL 9.4-12.4 NUCLEATED RED BLOOD CELLS (BEAKER) (test zegg=486) 1 /100 WBC 0-0 NEUTROPHILS RELATIVE PERCENT (BEAKER) (test cjlo=586) 72 % LYMPHOCYTES RELATIVE PERCENT (BEAKER) (test kpie=719) 14 % MONOCYTES RELATIVE PERCENT (BEAKER) (test cnza=877) 8 % EOSINOPHILS RELATIVE PERCENT (BEAKER) (test oqii=293) 2 % BASOPHILS RELATIVE PERCENT (BEAKER) (test nuob=972) 0 % NEUTROPHILS ABSOLUTE COUNT (BEAKER) (test oqxt=663) 7.23 K/ L 1.78-5.38 LYMPHOCYTES ABSOLUTE COUNT (BEAKER) (test qebn=609) 1.42 K/ L 1.32-3.57 MONOCYTES ABSOLUTE COUNT (BEAKER) (test ugks=927) 0.82 K/ L 0.30-0.82 EOSINOPHILS ABSOLUTE COUNT (BEAKER) (test tjyn=841) 0.23 K/ L 0.04-0.54 BASOPHILS ABSOLUTE COUNT (BEAKER) (test rdhr=943) 0.04 K/ L 0.01-0.08 IMMATURE GRANULOCYTES-RELATIVE PERCENT (BEAKER) (test hrri=7761) 3 % 0-1 [id number] 11:43:00* Test Item Value Reference Range Comments MAGNESIUM (BEAKER) (test ntqu=914) 1.7 mg/dL 1.6-2.6 BASIC METABOLIC [id number] 11:40:00* Test Item Value Reference Range Comments SODIUM (BEAKER) (test eolz=244) 138 meq/L 136-145 POTASSIUM (BEAKER) (test vdoq=163) 3.5 meq/L 3.5-5.1 CHLORIDE (BEAKER) (test pxac=184) 106 meq/L 98-107 CO2 (BEAKER) (test yrbc=940) 24 meq/L 22-29 BLOOD UREA NITROGEN (BEAKER) (test dvyn=030) 12 mg/dL 7-21 CREATININE (BEAKER) (test ampr=020) 0.75 mg/dL 0.57-1.25 GLUCOSE RANDOM (BEAKER) (test prum=122) 114 mg/dL 70-105 CALCIUM (BEAKER) (test ddcg=962) 8.4 mg/dL 8.4-10.2 EGFR (BEAKER) (test wxsn=8720) mL/min/1.73 sq m INSUFFICIENT CLINICAL DATA TO CALCULATE ESTIMATED GFR. POCT-GLUCOSE [id number] 08:22:00* Test Item Value Reference Range Comments POC-GLUCOSE METER (BEAKER) (test bmzi=6871) 119 mg/dL 70-110 TESTED AT [address] [address] POCT-GLUCOSE [id number] 21:38:00* Test Item Value Reference Range Comments POC-GLUCOSE METER (BEAKER) (test syxz=9351) 178 mg/dL 70-110 TESTED AT [address] [address] POCT-GLUCOSE [id number] 18:10:00* Test Item Value Reference Range Comments POC-GLUCOSE METER (BEAKER) (test rymi=5420) 164 mg/dL 70-110 TESTED AT [address] [address] POCT-GLUCOSE [id number] 13:29:00* Test Item Value Reference Range Comments POC-GLUCOSE METER (BEAKER) (test fpej=1712) 106 mg/dL 70-[address] [facility] [address] [facility] [address] POCT-GLUCOSE [id number] 07:47:00* Test Item Value Reference Range Comments POC-GLUCOSE METER (BEAKER) (test buhj=0231) 99 mg/dL 70-[address] [facility] [address] [facility] [address] BASIC METABOLIC [id number] 06:03:00* Test Item Value Reference Range Comments SODIUM (BEAKER) (test lent=376) 133 meq/L 136-145 POTASSIUM (BEAKER) (test dlso=210) 3.7 meq/L 3.5-5.1 CHLORIDE (BEAKER) (test qmlq=773) 104 meq/L 98-107 CO2 (BEAKER) (test ejlr=256) 24 meq/L 22-29 BLOOD UREA NITROGEN (BEAKER) (test bnry=556) 13 mg/dL 7-21 CREATININE (BEAKER) (test slga=110) 0.73 mg/dL 0.57-1.25 GLUCOSE RANDOM (BEAKER) (test zckx=945) 87 mg/dL 70-105 CALCIUM (BEAKER) (test ykzh=851) 7.8 mg/dL 8.4-10.2 EGFR (BEAKER) (test rsdy=7749) mL/min/1.73 sq m INSUFFICIENT CLINICAL DATA TO CALCULATE ESTIMATED GFR. [id number] 05:39:00* Test Item Value Reference Range Comments PHOSPHORUS (BEAKER) (test gbyh=953) 2.2 mg/dL 2.3-4.7 [id number] 05:39:00* Test Item Value Reference Range Comments MAGNESIUM (BEAKER) (test mecf=382) 1.7 mg/dL 1.6-2.6 PROTHROMBIN TIME/[id number] 04:52:00* Test Item Value Reference Range Comments PROTIME (BEAKER) (test kqsq=668) 15.2 seconds 11.7-14.7 INR (BEAKER) (test inae=517) 1.2 <=5.9 RECOMMENDED COUMADIN/WARFARIN INR THERAPY RANGESSTANDARD DOSE: 2.0 - 3.0 Inclu natalie: PROPHYLAXIS for venous thrombosis, systemic embolization; TREATMENT for s[place] ous thrombosis and/or pulmonary embolus.HIGH RISK: Target INR is 2.5-3.5 for pat ients with mechanical heart valves.CBC (HEMOGRAM ONLY)2018-01-21 04:42:00* Test Item Value Reference Range Comments WHITE BLOOD CELL COUNT (BEAKER) (test fxxi=739) 10.7 K/ L 3.5-10.5 RED BLOOD CELL COUNT (BEAKER) (test yufm=275) 2.66 M/ L 4.63-6.08 HEMOGLOBIN (BEAKER) (test ldpb=252) 7.9 GM/DL 13.7-17.5 HEMATOCRIT (BEAKER) (test ynfx=532) 24.0 % 40.1-51.0 MEAN CORPUSCULAR VOLUME (BEAKER) (test jvov=979) 90.2 fL 79.0-92.2 MEAN CORPUSCULAR HEMOGLOBIN (BEAKER) (test rwdn=250) 29.7 pg 25.7-32.2 MEAN CORPUSCULAR HEMOGLOBIN CONC (BEAKER) (test does=677) 32.9 GM/DL 32.3-36.5 RED CELL DISTRIBUTION WIDTH (BEAKER) (test pnpd=571) 14.8 % 11.6-14.4 PLATELET COUNT (BEAKER) (test hxji=538) 159 K/CU MM 150-450 MEAN PLATELET VOLUME (BEAKER) (test njsk=465) 10.2 fL 9.4-12.4 NUCLEATED RED BLOOD CELLS (BEAKER) (test wcfj=808) 0 /100 WBC 0-0 POCT-GLUCOSE [id number] 21:32:00* Test Item Value Reference Range Comments POC-GLUCOSE METER (BEAKER) (test iiga=0292) 203 mg/dL 70-[address] [facility] [address] [facility] [address] BASIC METABOLIC [id number] 09:02:00* Test Item Value Reference Range Comments SODIUM (BEAKER) (test pkmm=492) 136 meq/L 136-145 POTASSIUM (BEAKER) (test wbmz=181) 4.0 meq/L 3.5-5.1 CHLORIDE (BEAKER) (test ypxn=470) 106 meq/L 98-107 CO2 (BEAKER) (test gktl=583) 24 meq/L 22-29 BLOOD UREA NITROGEN (BEAKER) (test vbbd=709) 12 mg/dL 7-21 CREATININE (BEAKER) (test pryf=695) 0.76 mg/dL 0.57-1.25 GLUCOSE RANDOM (BEAKER) (test xyou=517) 81 mg/dL 70-105 CALCIUM (BEAKER) (test ncgk=519) 7.8 mg/dL 8.4-10.2 EGFR (BEAKER) (test wsfi=2527) mL/min/1.73 sq m INSUFFICIENT CLINICAL DATA TO CALCULATE ESTIMATED GFR. [id number] 08:58:00* Test Item Value Reference Range Comments PHOSPHORUS (BEAKER) (test khqh=135) 2.3 mg/dL 2.3-4.7 [id number] 08:58:00* Test Item Value Reference Range Comments MAGNESIUM (BEAKER) (test tudb=314) 2.0 mg/dL 1.6-2.6 PROTHROMBIN TIME/[id number] 07:59:00* Test Item Value Reference Range Comments PROTIME (BEAKER) (test crwn=901) 14.8 seconds 11.7-14.7 INR (BEAKER) (test jkcr=383) 1.2 <=5.9 RECOMMENDED COUMADIN/WARFARIN INR THERAPY RANGESSTANDARD DOSE: 2.0 - 3.0 Inclu natalie: PROPHYLAXIS for venous thrombosis, systemic embolization; TREATMENT for [place] ous thrombosis and/or pulmonary embolus.HIGH RISK: Target INR is 2.5-3.5 for pat ients with mechanical heart valves.HEMOGLOBIN AND [id number] 05:24:00 * Test Item Value Reference Range Comments HEMOGLOBIN (BEAKER) (test togh=977) 7.5 GM/DL 13.7-17.5 HEMATOCRIT (BEAKER) (test oziu=244) 23.5 % 40.1-51.0 CBC (HEMOGRAM ONLY)2018-01-20 05:24:00* Test Item Value Reference Range Comments WHITE BLOOD CELL COUNT (BEAKER) (test mrbr=036) 10.6 K/ L 3.5-10.5 RED BLOOD CELL COUNT (BEAKER) (test jqfd=761) 2.50 M/ L 4.63-6.08 HEMOGLOBIN (BEAKER) (test rldv=065) 7.5 GM/DL 13.7-17.5 HEMATOCRIT (BEAKER) (test douc=936) 23.5 % 40.1-51.0 MEAN CORPUSCULAR VOLUME (BEAKER) (test zmkn=497) 94.0 fL 79.0-92.2 MEAN CORPUSCULAR HEMOGLOBIN (BEAKER) (test xjwn=746) 30.0 pg 25.7-32.2 MEAN CORPUSCULAR HEMOGLOBIN CONC (BEAKER) (test gyxy=833) 31.9 GM/DL 32.3-36.5 RED CELL DISTRIBUTION WIDTH (BEAKER) (test cpxo=315) 15.3 % 11.6-14.4 PLATELET COUNT (BEAKER) (test rios=342) 114 K/CU MM 150-450 MEAN PLATELET VOLUME (BEAKER) (test lqnk=001) 10.0 fL 9.4-12.4 NUCLEATED RED BLOOD CELLS (BEAKER) (test ghwa=994) 0 /100 WBC 0-0 POCT-GLUCOSE [id number] 21:52:00* Test Item Value Reference Range Comments POC-GLUCOSE METER (BEAKER) (test ovgw=2432) 106 mg/dL 70-110 TESTED AT [address] [address] POCT-GLUCOSE [id number] 18:16:00* Test Item Value Reference Range Comments POC-GLUCOSE METER (BEAKER) (test knns=7701) 110 mg/dL 70-110 TESTED AT [place] [id number] [facility] [address] HEMOGLOBIN [id number] 09:34:00* Test Item Value Reference Range Comments HEMOGLOBIN A1C (BEAKER) (test sebj=628) 5.4 % 4.3-6.1 BASIC METABOLIC [id number] 05:03:00* Test Item Value Reference Range Comments SODIUM (BEAKER) (test ywiu=459) 137 meq/L 136-145 POTASSIUM (BEAKER) (test tcpw=291) 4.2 meq/L 3.5-5.1 CHLORIDE (BEAKER) (test uidp=361) 108 meq/L 98-107 CO2 (BEAKER) (test mxvo=115) 23 meq/L 22-29 BLOOD UREA NITROGEN (BEAKER) (test xvyb=707) 15 mg/dL 7-21 CREATININE (BEAKER) (test vitr=104) 0.81 mg/dL 0.57-1.25 GLUCOSE RANDOM (BEAKER) (test mvlk=305) 102 mg/dL 70-105 CALCIUM (BEAKER) (test mmwv=011) 7.7 mg/dL 8.4-10.2 EGFR (BEAKER) (test fahh=3380) mL/min/1.73 sq m INSUFFICIENT CLINICAL DATA TO CALCULATE ESTIMATED GFR. [id number] 04:59:00* Test Item Value Reference Range Comments PHOSPHORUS (BEAKER) (test gwkx=929) 2.0 mg/dL 2.3-4.7 [id number] 04:59:00* Test Item Value Reference Range Comments MAGNESIUM (BEAKER) (test tdtw=690) 1.8 mg/dL 1.6-2.6 PROTHROMBIN TIME/[id number] 04:14:00* Test Item Value Reference Range Comments PROTIME (BEAKER) (test xemk=730) 15.4 seconds 11.7-14.7 INR (BEAKER) (test vmgz=619) 1.2 <=5.9 RECOMMENDED COUMADIN/WARFARIN INR THERAPY RANGESSTANDARD DOSE: 2.0 - 3.0 Inclu natalie: PROPHYLAXIS for venous thrombosis, systemic embolization; TREATMENT for [place] ous thrombosis and/or pulmonary embolus.HIGH RISK: Target INR is 2.5-3.5 for pat ients with mechanical heart valves.CBC (HEMOGRAM ONLY)2018-01-19 03:58:00* Test Item Value Reference Range Comments WHITE BLOOD CELL COUNT (BEAKER) (test xgdr=418) 10.9 K/ L 3.5-10.5 RED BLOOD CELL COUNT (BEAKER) (test vfzy=349) 2.64 M/ L 4.63-6.08 HEMOGLOBIN (BEAKER) (test yver=866) 7.9 GM/DL 13.7-17.5 HEMATOCRIT (BEAKER) (test gxkd=107) 23.8 % 40.1-51.0 MEAN CORPUSCULAR VOLUME (BEAKER) (test crml=218) 90.2 fL 79.0-92.2 MEAN CORPUSCULAR HEMOGLOBIN (BEAKER) (test zirt=952) 29.9 pg 25.7-32.2 MEAN CORPUSCULAR HEMOGLOBIN CONC (BEAKER) (test jlor=138) 33.2 GM/DL 32.3-36.5 RED CELL DISTRIBUTION WIDTH (BEAKER) (test feqq=826) 15.7 % 11.6-14.4 PLATELET COUNT (BEAKER) (test pqgj=947) 86 K/CU MM 150-450 MEAN PLATELET VOLUME (BEAKER) (test ocgf=654) 9.4 fL 9.4-12.4 NUCLEATED RED BLOOD CELLS (BEAKER) (test kpdz=708) 0 /100 WBC 0-0 BASIC METABOLIC [id number] 18:12:00* Test Item Value Reference Range Comments SODIUM (BEAKER) (test ugyx=611) 140 meq/L 136-145 POTASSIUM (BEAKER) (test etpp=456) 4.5 meq/L 3.5-5.1 CHLORIDE (BEAKER) (test crmy=976) 113 meq/L 98-107 CO2 (BEAKER) (test amqg=132) 22 meq/L 22-29 BLOOD UREA NITROGEN (BEAKER) (test xuay=033) 18 mg/dL 7-21 CREATININE (BEAKER) (test ciph=825) 0.97 mg/dL 0.57-1.25 GLUCOSE RANDOM (BEAKER) (test gxms=632) 118 mg/dL 70-105 CALCIUM (BEAKER) (test dfvy=731) 8.1 mg/dL 8.4-10.2 EGFR (BEAKER) (test hphw=7866) mL/min/1.73 sq m INSUFFICIENT CLINICAL DATA TO CALCULATE ESTIMATED GFR. [id number] 18:11:00* Test Item Value Reference Range Comments MAGNESIUM (BEAKER) (test xoym=346) 1.9 mg/dL 1.6-2.6 BLOOD GAS, [id number] 17:42:00* Test Item Value Reference Range Comments PH ARTERIAL (BEAKER) (test foiw=064) 7.31 7.35-7.45 PCO2 ARTERIAL (BEAKER) (test ovsm=655) 48 mmHg 35-45 PO2 ARTERIAL (BEAKER) (test vlxe=545) 224 mmHg 80-90 O2 SATURATION ARTERIAL (BEAKER) (test vqec=263) 99.4 % 96.0-97.0 HCO3 ARTERIAL (BEAKER) (test cjlf=462) 24 mmol/L 21-29 BASE EXCESS ARTERIAL (BEAKER) (test cpbi=475) -2.7 mmol/L -2.0-3.0 PATIENT TEMPERATURE (BEAKER) (test rynd=8387) 37.6 C FIO2 (BEAKER) (test wrlo=9364) 32.0 % GLUCOSE-STAT [id number] 17:42:00* Test Item Value Reference Range Comments GLUCOSE RANDOM (BEAKER) (test pprm=228) 114 mg/dL 70-110 HGB/HCT (H&H) - STAT [id number] 17:42:00* Test Item Value Reference Range Comments HEMOGLOBIN (BEAKER) (test lcix=275) 8.9 g/dL 13.0-16.8 HEMATOCRIT (BEAKER) (test fikb=094) 26.0 % 40.0-50.0 CALCIUM, [id number] 17:42:00* Test Item Value Reference Range Comments CALCIUM IONIZED (BEAKER) (test yzcd=811) 1.17 mmol/L 1.12-1.27 PH, BLOOD (BEAKER) (test himu=7479) 7.31 SODIUM NA-STAT [id number] 17:41:00* Test Item Value Reference Range Comments SODIUM (BEAKER) (test izpx=092) 138 meq/L 135-148 CBC (HEMOGRAM ONLY)2018-01-18 17:37:00* Test Item Value Reference Range Comments WHITE BLOOD CELL COUNT (BEAKER) (test qxpo=555) 12.3 K/ L 3.5-10.5 RED BLOOD CELL COUNT (BEAKER) (test bncz=751) 2.83 M/ L 4.63-6.08 HEMOGLOBIN (BEAKER) (test uxjd=601) 8.4 GM/DL 13.7-17.5 HEMATOCRIT (BEAKER) (test twnb=235) 26.0 % 40.1-51.0 MEAN CORPUSCULAR VOLUME (BEAKER) (test raon=695) 91.9 fL 79.0-92.2 MEAN CORPUSCULAR HEMOGLOBIN (BEAKER) (test yudo=525) 29.7 pg 25.7-32.2 MEAN CORPUSCULAR HEMOGLOBIN CONC (BEAKER) (test keep=284) 32.3 GM/DL 32.3-36.5 RED CELL DISTRIBUTION WIDTH (BEAKER) (test xogv=007) 15.2 % 11.6-14.4 PLATELET COUNT (BEAKER) (test ehev=240) 96 K/CU MM 150-450 MEAN PLATELET VOLUME (BEAKER) (test bigt=268) 10.0 fL 9.4-12.4 NUCLEATED RED BLOOD CELLS (BEAKER) (test mnoh=561) 0 /100 WBC 0-0 GLUCOSE-STAT [id number] 15:10:00* Test Item Value Reference Range Comments GLUCOSE RANDOM (BEAKER) (test nptl=413) 104 mg/dL 70-110 SODIUM NA-STAT [id number] 15:10:00* Test Item Value Reference Range Comments SODIUM (BEAKER) (test oilu=925) 137 meq/L 135-148 POTASSIUM-STAT [id number] 15:10:00* Test Item Value Reference Range Comments POTASSIUM (BEAKER) (test dzzj=319) 4.0 meq/L 3.6-5.5 BLOOD GAS, [id number] 15:10:00* Test Item Value Reference Range Comments PH ARTERIAL (BEAKER) (test mvcn=278) 7.39 7.35-7.45 PCO2 ARTERIAL (BEAKER) (test ccfy=707) 39 mmHg 35-45 PO2 ARTERIAL (BEAKER) (test nmgu=059) 257 mmHg 80-90 O2 SATURATION ARTERIAL (BEAKER) (test pfyt=012) 99.6 % 96.0-97.0 HCO3 ARTERIAL (BEAKER) (test huow=591) 24 mmol/L 21-29 BASE EXCESS ARTERIAL (BEAKER) (test znio=354) -1.3 mmol/L -2.0-3.0 PATIENT TEMPERATURE (BEAKER) (test moqv=4662) 36.0 C FIO2 (BEAKER) (test jqti=0734) 60.0 % HGB/HCT (H&H) - STAT [id number] 15:10:00* Test Item Value Reference Range Comments HEMOGLOBIN (BEAKER) (test atza=986) 7.4 g/dL 13.0-16.8 HEMATOCRIT (BEAKER) (test alst=698) 22.0 % 40.0-50.0 [id number] 11:05:00* Test Item Value Reference Range Comments MAGNESIUM (BEAKER) (test mnto=442) 2.0 mg/dL 1.6-2.6 BLOOD GAS, [id number] 06:05:00* Test Item Value Reference Range Comments PH ARTERIAL (BEAKER) (test yvrg=244) 7.36 7.35-7.45 PCO2 ARTERIAL (BEAKER) (test cmal=548) 40 mmHg 35-45 PO2 ARTERIAL (BEAKER) (test xpqt=985) 117 mmHg 80-90 O2 SATURATION ARTERIAL (BEAKER) (test kzeb=765) 98.1 % 96.0-97.0 HCO3 ARTERIAL (BEAKER) (test lwrt=255) 22 mmol/L 21-29 BASE EXCESS ARTERIAL (BEAKER) (test xadr=800) -3.2 mmol/L -2.0-3.0 PATIENT TEMPERATURE (BEAKER) (test hbxx=8052) 37.1 C FIO2 (BEAKER) (test kims=7981) 40.0 % Post extubation ABGHGB/HCT (H&H) - STAT [id number] 05:11:00* Test Item Value Reference Range Comments HEMOGLOBIN (BEAKER) (test isnv=603) 8.9 g/dL 13.0-16.8 HEMATOCRIT (BEAKER) (test dmgi=922) 26.0 % 40.0-50.0 BLOOD GAS, [id number] 05:11:00* Test Item Value Reference Range Comments PH ARTERIAL (BEAKER) (test apty=005) 7.32 7.35-7.45 PCO2 ARTERIAL (BEAKER) (test cksc=396) 42 mmHg 35-45 PO2 ARTERIAL (BEAKER) (test kwnm=278) 116 mmHg 80-90 O2 SATURATION ARTERIAL (BEAKER) (test qdac=433) 98.0 % 96.0-97.0 HCO3 ARTERIAL (BEAKER) (test dnig=979) 21 mmol/L 21-29 BASE EXCESS ARTERIAL (BEAKER) (test mpwl=432) -4.5 mmol/L -2.0-3.0 PATIENT TEMPERATURE (BEAKER) (test tshn=0589) 36.7 C FIO2 (BEAKER) (test vehp=1129) 40.0 % RAD, CHEST, 1 VIEW, NON [id number] 02:27:00Reason for exam:->s/p fem-pop FINAL REPORT History: Postoperative evaluation. Comparis on: 04/20/2002 Findings: A single view of the chest is submitted. The tip of an endotracheal tube is between the clavicles and nadira. A right IJ CVC tip overli es the superior vena cava without associated pneumothorax or hematoma. A left goodwin bclavian, dual-lead pacemaker is in place. The cardiomediastinal contours are ot herwise unremarkable. There is no focal consolidation, pneumothorax, large pleu ral effusion or evidence of overt pulmonary edema. There is no acute bony abno rmality. Signed: Taz White MDReport Verified Date/Time: 01/18/2018 02:27:53 Reading Location: [address] Reading Room Electronically sign ed by: TAZ WHITE M.D. on 01/18/2018 02:27 AM [id number] 02:18:00* Test Item Value Reference Range Comments PARTIAL THROMBOPLASTIN TIME (BEAKER) (test ebec=624) 31.1 seconds 22.5-36.0 [id number] 02:18:00* Test Item Value Reference Range Comments FIBRINOGEN LEVEL (BEAKER) (test uqaa=379) 202 mg/dl 225-434 BASIC METABOLIC [id number] 02:18:00* Test Item Value Reference Range Comments SODIUM (BEAKER) (test atbh=407) 142 meq/L 136-145 POTASSIUM (BEAKER) (test nurz=702) 4.5 meq/L 3.5-5.1 CHLORIDE (BEAKER) (test joyq=706) 116 meq/L 98-107 CO2 (BEAKER) (test cfvz=372) 21 meq/L 22-29 BLOOD UREA NITROGEN (BEAKER) (test yxtz=958) 30 mg/dL 7-21 CREATININE (BEAKER) (test tatt=861) 1.35 mg/dL 0.57-1.25 GLUCOSE RANDOM (BEAKER) (test mqaa=106) 137 mg/dL 70-105 CALCIUM (BEAKER) (test gbdw=879) 7.3 mg/dL 8.4-10.2 EGFR (BEAKER) (test rpna=8740) mL/min/1.73 sq m INSUFFICIENT CLINICAL DATA TO CALCULATE ESTIMATED GFR. [id number] 02:17:00* Test Item Value Reference Range Comments PHOSPHORUS (BEAKER) (test opvc=874) 3.3 mg/dL 2.3-4.7 [id number] 02:17:00* Test Item Value Reference Range Comments MAGNESIUM (BEAKER) (test gery=818) 1.5 mg/dL 1.6-2.6 PROTHROMBIN TIME/[id number] 02:17:00* Test Item Value Reference Range Comments PROTIME (BEAKER) (test wprh=546) 18.6 seconds 11.7-14.7 INR (BEAKER) (test wccl=430) 1.6 <=5.9 RECOMMENDED COUMADIN/WARFARIN INR THERAPY RANGESSTANDARD DOSE: 2.0 - 3.0 Inclu natalie: PROPHYLAXIS for venous thrombosis, systemic embolization; TREATMENT for [place] ous thrombosis and/or pulmonary embolus.HIGH RISK: Target INR is 2.5-3.5 for pat ients with mechanical heart valves.CBC W/PLT COUNT & AUTO [id number] 02:08:00* Test Item Value Reference Range Comments WHITE BLOOD CELL COUNT (BEAKER) (test ydth=152) 13.7 K/ L 3.5-10.5 RED BLOOD CELL COUNT (BEAKER) (test mtkj=234) 2.87 M/ L 4.63-6.08 HEMOGLOBIN (BEAKER) (test kyck=031) 8.6 GM/DL 13.7-17.5 HEMATOCRIT (BEAKER) (test rqtl=361) 26.0 % 40.1-51.0 MEAN CORPUSCULAR VOLUME (BEAKER) (test iobi=515) 90.6 fL 79.0-92.2 MEAN CORPUSCULAR HEMOGLOBIN (BEAKER) (test fgnr=945) 30.0 pg 25.7-32.2 MEAN CORPUSCULAR HEMOGLOBIN CONC (BEAKER) (test yoep=536) 33.1 GM/DL 32.3-36.5 RED CELL DISTRIBUTION WIDTH (BEAKER) (test jhbv=098) 14.9 % 11.6-14.4 PLATELET COUNT (BEAKER) (test gfmo=631) 101 K/CU MM 150-450 MEAN PLATELET VOLUME (BEAKER) (test yqyh=319) 9.5 fL 9.4-12.4 NUCLEATED RED BLOOD CELLS (BEAKER) (test jxtf=291) 0 /100 WBC 0-0 NEUTROPHILS RELATIVE PERCENT (BEAKER) (test qzqh=522) 72 % LYMPHOCYTES RELATIVE PERCENT (BEAKER) (test jnlk=314) 18 % MONOCYTES RELATIVE PERCENT (BEAKER) (test tbtf=321) 8 % EOSINOPHILS RELATIVE PERCENT (BEAKER) (test jcbk=486) 0 % BASOPHILS RELATIVE PERCENT (BEAKER) (test qkju=363) 0 % NEUTROPHILS ABSOLUTE COUNT (BEAKER) (test jmjq=164) 9.91 K/ L 1.78-5.38 LYMPHOCYTES ABSOLUTE COUNT (BEAKER) (test cxen=136) 2.41 K/ L 1.32-3.57 MONOCYTES ABSOLUTE COUNT (BEAKER) (test effx=184) 1.13 K/ L 0.30-0.82 EOSINOPHILS ABSOLUTE COUNT (BEAKER) (test avyj=972) 0.05 K/ L 0.04-0.54 BASOPHILS ABSOLUTE COUNT (BEAKER) (test gvqd=351) 0.05 K/ L 0.01-0.08 IMMATURE GRANULOCYTES-RELATIVE PERCENT (BEAKER) (test wfpw=4936) 1 % 0-1 CALCIUM, [id number] 02:06:00* Test Item Value Reference Range Comments CALCIUM IONIZED (BEAKER) (test pcky=673) 1.05 mmol/L 1.12-1.27 PH, BLOOD (BEAKER) (test ehvj=2471) 7.38 BLOOD GAS, [id number] 02:04:00* Test Item Value Reference Range Comments PH ARTERIAL (BEAKER) (test fyli=286) 7.39 7.35-7.45 PCO2 ARTERIAL (BEAKER) (test yawo=943) 37 mmHg 35-45 PO2 ARTERIAL (BEAKER) (test kmcj=941) 249 mmHg 80-90 O2 SATURATION ARTERIAL (BEAKER) (test xewr=281) 99.6 % 96.0-97.0 HCO3 ARTERIAL (BEAKER) (test iyse=820) 22 mmol/L 21-29 BASE EXCESS ARTERIAL (BEAKER) (test lofr=741) -2.7 mmol/L -2.0-3.0 PATIENT TEMPERATURE (BEAKER) (test trsl=5252) 36.2 C FIO2 (BEAKER) (test yafx=1737) 60.0 % [id number] 01:01:00* Test Item Value Reference Range Comments ACTIVATED CLOTTING TIME (BEAKER) (test laga=486) 241 sec TESTED AT [place] [id number] 01:01:00* Test Item Value Reference Range Comments ACTIVATED CLOTTING TIME (BEAKER) (test bzkr=451) 241 sec TESTED AT [place] [id number] 01:01:00* Test Item Value Reference Range Comments ACTIVATED CLOTTING TIME (BEAKER) (test nbdm=498) 224 sec TESTED AT [place] [id number] 01:01:00* Test Item Value Reference Range Comments ACTIVATED CLOTTING TIME (BEAKER) (test zqkg=512) 422 sec TESTED AT [place] [id number] BLOOD GAS, [id number] 00:56:00* Test Item Value Reference Range Comments PH ARTERIAL (BEAKER) (test erpe=431) 7.34 7.35-7.45 PCO2 ARTERIAL (BEAKER) (test oscc=753) 41 mmHg 35-45 PO2 ARTERIAL (BEAKER) (test zgts=966) 115 mmHg 80-90 O2 SATURATION ARTERIAL (BEAKER) (test avaq=438) 97.9 % 96.0-97.0 HCO3 ARTERIAL (BEAKER) (test lxij=349) 22 mmol/L 21-29 BASE EXCESS ARTERIAL (BEAKER) (test hkoi=845) -4.0 mmol/L -2.0-3.0 PATIENT TEMPERATURE (BEAKER) (test xgwo=6317) 37.3 C FIO2 (BEAKER) (test veky=6895) 50.0 % GLUCOSE-STAT [id number] 00:56:00* Test Item Value Reference Range Comments GLUCOSE RANDOM (BEAKER) (test gnjp=052) 135 mg/dL 70-110 HGB/HCT (H&H) - STAT [id number] 00:56:00* Test Item Value Reference Range Comments HEMOGLOBIN (BEAKER) (test fbcm=853) 9.1 g/dL 13.0-16.8 HEMATOCRIT (BEAKER) (test xfth=169) 27.0 % 40.0-50.0 SODIUM NA-STAT [id number] 00:55:00* Test Item Value Reference Range Comments SODIUM (BEAKER) (test dhgs=429) 138 meq/L 135-148 POTASSIUM-STAT [id number] 00:55:00* Test Item Value Reference Range Comments POTASSIUM (BEAKER) (test cdhj=438) 4.7 meq/L 3.6-5.5 BLOOD GAS, [id number] 00:05:00* Test Item Value Reference Range Comments PH ARTERIAL (BEAKER) (test dnsc=725) 7.35 7.35-7.45 PCO2 ARTERIAL (BEAKER) (test baub=490) 42 mmHg 35-45 PO2 ARTERIAL (BEAKER) (test fngn=605) 111 mmHg 80-90 O2 SATURATION ARTERIAL (BEAKER) (test otxc=910) 97.9 % 96.0-97.0 HCO3 ARTERIAL (BEAKER) (test loub=627) 23 mmol/L 21-29 BASE EXCESS ARTERIAL (BEAKER) (test imza=502) -2.9 mmol/L -2.0-3.0 PATIENT TEMPERATURE (BEAKER) (test hgdd=0493) 36.7 C FIO2 (BEAKER) (test pvqu=0563) 44.0 % SODIUM NA-STAT [id number] 00:05:00* Test Item Value Reference Range Comments SODIUM (BEAKER) (test owas=018) 137 meq/L 135-148 GLUCOSE-STAT [id number] 00:05:00* Test Item Value Reference Range Comments GLUCOSE RANDOM (BEAKER) (test bwuc=825) 135 mg/dL 70-110 HGB/HCT (H&H) - STAT [id number] 00:05:00* Test Item Value Reference Range Comments HEMOGLOBIN (BEAKER) (test ifmp=611) 9.0 g/dL 13.0-16.8 HEMATOCRIT (BEAKER) (test fjcf=864) 26.0 % 40.0-50.0 POTASSIUM-STAT [id number] 00:04:00* Test Item Value Reference Range Comments POTASSIUM (BEAKER) (test odty=344) 5.1 meq/L 3.6-5.5 BLOOD GAS, [id number] 23:30:00* Test Item Value Reference Range Comments PH ARTERIAL (BEAKER) (test kbtg=065) 7.30 7.35-7.45 PCO2 ARTERIAL (BEAKER) (test qrgb=529) 40 mmHg 35-45 PO2 ARTERIAL (BEAKER) (test clew=895) 124 mmHg 80-90 O2 SATURATION ARTERIAL (BEAKER) (test fjno=051) 98.2 % 96.0-97.0 HCO3 ARTERIAL (BEAKER) (test hrea=716) 19 mmol/L 21-29 BASE EXCESS ARTERIAL (BEAKER) (test wubi=172) -6.8 mmol/L -2.0-3.0 PATIENT TEMPERATURE (BEAKER) (test xmyo=6391) 36.4 C FIO2 (BEAKER) (test emve=9888) 100.0 % GLUCOSE-STAT [id number] 23:30:00* Test Item Value Reference Range Comments GLUCOSE RANDOM (BEAKER) (test krvp=709) 122 mg/dL 70-110 SODIUM NA-STAT [id number] 23:30:00* Test Item Value Reference Range Comments SODIUM (BEAKER) (test okmc=087) 150 meq/L 135-148 POTASSIUM-STAT [id number] 23:30:00* Test Item Value Reference Range Comments POTASSIUM (BEAKER) (test yxaq=636) 5.6 meq/L 3.6-5.5 HGB/HCT (H&H) - STAT [id number] 23:30:00* Test Item Value Reference Range Comments HEMOGLOBIN (BEAKER) (test qzlx=133) 8.5 g/dL 13.0-16.8 HEMATOCRIT (BEAKER) (test tpnl=548) 25.0 % 40.0-50.0 CALCIUM, [id number] 23:29:00* Test Item Value Reference Range Comments CALCIUM IONIZED (BEAKER) (test zrjh=153) 1.20 mmol/L 1.12-1.27 PH, BLOOD (BEAKER) (test esso=5251) 7.29 HGB/HCT (H&H) - STAT [id number] 22:24:00* Test Item Value Reference Range Comments HEMOGLOBIN (BEAKER) (test vlkh=556) 8.3 g/dL 13.0-16.8 HEMATOCRIT (BEAKER) (test qjlt=520) 24.0 % 40.0-50.0 CALCIUM, [id number] 22:23:00* Test Item Value Reference Range Comments CALCIUM IONIZED (BEAKER) (test bxyp=258) 1.09 mmol/L 1.12-1.27 PH, BLOOD (BEAKER) (test sgng=1517) 7.31 BLOOD GAS, [id number] 22:23:00* Test Item Value Reference Range Comments PH ARTERIAL (BEAKER) (test bxbb=088) 7.31 7.35-7.45 PCO2 ARTERIAL (BEAKER) (test ubsu=152) 44 mmHg 35-45 PO2 ARTERIAL (BEAKER) (test zwdc=611) 220 mmHg 80-90 O2 SATURATION ARTERIAL (BEAKER) (test djho=643) 99.4 % 96.0-97.0 HCO3 ARTERIAL (BEAKER) (test cfcp=238) 22 mmol/L 21-29 BASE EXCESS ARTERIAL (BEAKER) (test ywtw=414) -4.1 mmol/L -2.0-3.0 PATIENT TEMPERATURE (BEAKER) (test livk=0163) 36.6 C FIO2 (BEAKER) (test hqtu=5420) 60.0 % GLUCOSE-STAT [id number] 22:23:00* Test Item Value Reference Range Comments GLUCOSE RANDOM (BEAKER) (test ljko=220) 112 mg/dL 70-110 SODIUM NA-STAT [id number] 22:22:00* Test Item Value Reference Range Comments SODIUM (BEAKER) (test ojvq=308) 137 meq/L 135-148 POTASSIUM-STAT [id number] 22:22:00* Test Item Value Reference Range Comments POTASSIUM (BEAKER) (test qllp=102) 5.0 meq/L 3.6-5.5 CALCIUM, [id number] 21:30:00* Test Item Value Reference Range Comments CALCIUM IONIZED (BEAKER) (test onky=276) 1.08 mmol/L 1.12-1.27 PH, BLOOD (BEAKER) (test vgoi=5707) 7.28 BLOOD GAS, [id number] 21:30:00* Test Item Value Reference Range Comments PH ARTERIAL (BEAKER) (test nthj=141) 7.28 7.35-7.45 PCO2 ARTERIAL (BEAKER) (test nekd=683) 44 mmHg 35-45 PO2 ARTERIAL (BEAKER) (test qfwr=459) 557 mmHg 80-90 O2 SATURATION ARTERIAL (BEAKER) (test tmiz=346) 99.9 % 96.0-97.0 HCO3 ARTERIAL (BEAKER) (test dazt=421) 20 mmol/L 21-29 BASE EXCESS ARTERIAL (BEAKER) (test rhbj=483) -6.0 mmol/L -2.0-3.0 PATIENT TEMPERATURE (BEAKER) (test xmai=6799) 37.0 C FIO2 (BEAKER) (test tpro=3387) 100.0 % GLUCOSE-STAT [id number] 21:30:00* Test Item Value Reference Range Comments GLUCOSE RANDOM (BEAKER) (test rdbo=007) 128 mg/dL 70-110 HGB/HCT (H&H) - STAT [id number] 21:30:00* Test Item Value Reference Range Comments HEMOGLOBIN (BEAKER) (test vnrw=025) 9.4 g/dL 13.0-16.8 HEMATOCRIT (BEAKER) (test cnin=672) 28.0 % 40.0-50.0 SODIUM NA-STAT [id number] 21:29:00* Test Item Value Reference Range Comments SODIUM (BEAKER) (test vtot=700) 135 meq/L 135-148 POTASSIUM-STAT [id number] 21:29:00* Test Item Value Reference Range Comments POTASSIUM (BEAKER) (test kkqi=952) 4.9 meq/L 3.6-5.5 BASIC METABOLIC [id number] 20:29:00* Test Item Value Reference Range Comments SODIUM (BEAKER) (test axai=783) 139 meq/L 136-145 POTASSIUM (BEAKER) (test jkfd=831) 5.2 meq/L 3.5-5.1 CHLORIDE (BEAKER) (test zsow=337) 113 meq/L 98-107 CO2 (BEAKER) (test hpnj=377) 21 meq/L 22-29 BLOOD UREA NITROGEN (BEAKER) (test ftex=682) 32 mg/dL 7-21 CREATININE (BEAKER) (test aspj=597) 1.73 mg/dL 0.57-1.25 GLUCOSE RANDOM (BEAKER) (test veyw=000) 125 mg/dL 70-105 CALCIUM (BEAKER) (test vxky=246) 7.8 mg/dL 8.4-10.2 EGFR (BEAKER) (test wlcs=4233) mL/min/1.73 sq m INSUFFICIENT CLINICAL DATA TO CALCULATE ESTIMATED GFR. [id number] 20:26:00* Test Item Value Reference Range Comments PHOSPHORUS (BEAKER) (test oynz=163) 3.6 mg/dL 2.3-4.7 [id number] 20:26:00* Test Item Value Reference Range Comments MAGNESIUM (BEAKER) (test fwge=420) 1.8 mg/dL 1.6-2.6 CREATINE KINASE (CK)2018-01-17 20:26:00* Test Item Value Reference Range Comments CREATINE KINASE TOTAL (BEAKER) (test fgtb=308) 973 U/L 29-200 LACTATE DEHYDROGENASE (LDH)2018-01-17 20:26:00* Test Item Value Reference Range Comments LACTATE DEHYDROGENASE (BEAKER) (test nzlt=177) 300 U/L 125-220 [id number] 20:25:00* Test Item Value Reference Range Comments PARTIAL THROMBOPLASTIN TIME (BEAKER) (test smam=844) 32.0 seconds 22.5-36.0 [id number] 20:25:00* Test Item Value Reference Range Comments FIBRINOGEN LEVEL (BEAKER) (test urke=586) 229 mg/dl 225-434 PROTHROMBIN TIME/[id number] 20:24:00* Test Item Value Reference Range Comments PROTIME (BEAKER) (test xnrn=559) 16.2 seconds 11.7-14.7 INR (BEAKER) (test ggfo=122) 1.3 <=5.9 RECOMMENDED COUMADIN/WARFARIN INR THERAPY RANGESSTANDARD DOSE: 2.0 - 3.0 Inclu natalie: PROPHYLAXIS for venous thrombosis, systemic embolization; TREATMENT for s[place] ous thrombosis and/or pulmonary embolus.HIGH RISK: Target INR is 2.5-3.5 for pat ients with mechanical heart valves.CBC W/PLT COUNT & AUTO [id number] 20:11:00* Test Item Value Reference Range Comments WHITE BLOOD CELL COUNT (BEAKER) (test fleh=214) 15.6 K/ L 3.5-10.5 RED BLOOD CELL COUNT (BEAKER) (test expi=518) 3.08 M/ L 4.63-6.08 HEMOGLOBIN (BEAKER) (test dkqu=028) 9.2 GM/DL 13.7-17.5 HEMATOCRIT (BEAKER) (test ewyg=761) 28.3 % 40.1-51.0 MEAN CORPUSCULAR VOLUME (BEAKER) (test vugl=750) 91.9 fL 79.0-92.2 MEAN CORPUSCULAR HEMOGLOBIN (BEAKER) (test qccr=701) 29.9 pg 25.7-32.2 MEAN CORPUSCULAR HEMOGLOBIN CONC (BEAKER) (test xylx=376) 32.5 GM/DL 32.3-36.5 RED CELL DISTRIBUTION WIDTH (BEAKER) (test nskp=307) 14.9 % 11.6-14.4 PLATELET COUNT (BEAKER) (test nefr=509) 108 K/CU MM 150-450 MEAN PLATELET VOLUME (BEAKER) (test fpkw=560) 9.3 fL 9.4-12.4 NUCLEATED RED BLOOD CELLS (BEAKER) (test dptx=917) 0 /100 WBC 0-0 NEUTROPHILS RELATIVE PERCENT (BEAKER) (test lfwo=842) 82 % LYMPHOCYTES RELATIVE PERCENT (BEAKER) (test clwa=322) 9 % MONOCYTES RELATIVE PERCENT (BEAKER) (test zbwa=221) 8 % EOSINOPHILS RELATIVE PERCENT (BEAKER) (test hsyp=730) 0 % BASOPHILS RELATIVE PERCENT (BEAKER) (test jnpq=219) 0 % NEUTROPHILS ABSOLUTE COUNT (BEAKER) (test kjii=536) 12.81 K/ L 1.78-5.38 LYMPHOCYTES ABSOLUTE COUNT (BEAKER) (test ihkl=171) 1.32 K/ L 1.32-3.57 MONOCYTES ABSOLUTE COUNT (BEAKER) (test bbhl=305) 1.29 K/ L 0.30-0.82 EOSINOPHILS ABSOLUTE COUNT (BEAKER) (test snow=552) 0.01 K/ L 0.04-0.54 BASOPHILS ABSOLUTE COUNT (BEAKER) (test lcsu=583) 0.04 K/ L 0.01-0.08 IMMATURE GRANULOCYTES-RELATIVE PERCENT (BEAKER) (test hirq=2694) 1 % 0-1 CHEST XRAY LINE [id number] 09:51:00 [place] [address] Patient Name: DIEUDONNE ALVAREZ MR #: [id number] : 1950 Age/Sex: 67/M Req #: [id number] Adm Physician: ALEXIA WILSON MD Ordered by: ANUP BERNARD MD Report #: [id number] Location: ICU Room/Bed: ICU [facility] Procedure: [id number] DX/CH EST XRAY LINE PLACEMENT Exam Date: Exam Time: REPORT STATUS: Signed PROCEDURE: A single AP view of the chest. COM PARISON: [facility], DX, CHEST SINGLE (PORTABLE), 01/13/2018, 6:5 5. INDICATIONS: CENTRAL LINE PLACEMENT FINDINGS: Lines/tubes : A right IJ central line is now present with its tip overlying the SVC. Unch anged appearance of a dual lead left left-sided cardiac device. Lungs: The lungs are well inflated and clear. There is no evidence of pneumonia or pulmonary edema. Pleura: There is no pleural effusion or pneumothorax. Heart and mediastinum: The heart and the mediastinum are unremarkable. Bones: No acute bony abnormality. IMPRESSION: 1. No acute cardi opulmonary disease. 2. Acceptable position of a right IJ central line. Jony Sneed D.O. Dictated by: Jony Sneed D.O. on 01/17/2018 at 9: 51 Electronically approved by: Jony Sneed D.O. on 01/17/2018 at 9:51 Dictated By: JONY SNEED DO 0 Transcribed By: ASA on 01/17/18950 COPY TO: ANUP BERNARD MD [facility] ([facility])2018-01-17 07:36:00 [place] [address] Patient Name: DIEUDONNE ALVAREZ MR #: [id number] : Age/Sex: 67/M Req #: [id number] Adm Physician: ALEXIA PERSON MD Ordered by: ANUP BERNARD MD Report #: [id number] Locatio n: ICU Room/Bed: ICU 193 Procedure: [id number] DX/AB SALDIVAR-1SHANTELL (KU) Exam Date: 01/17/18 Exam Time: 053 0 REPORT STATUS: Signed Exam: Abdominal film Clinical History: Rule out retroperitoneal bleed Comparison: None. DISCUSSION: A left common femoral approach arterial sheath tip terminates over the expected region of the proximal right common femoral artery. Left external iliac arteri al stent. Bowel gas pattern shows no dilated, air-filled loops of bowel. No mass effect or organomegaly. The psoas muscular shadows are symmetric. No acute osseous abnormality. Degenerative disc changes of the lumbar spine. IMPRESSION: Nonobstructive bowel gas pattern. Symmetric psoas musc ular shadows without mass effect or abnormal soft tissue density. Please note that plain radiography is insensitive for detection of retroperitoneal hematom a, and noncontrast CT scan of the abdomen and pelvis should be considered for further evaluation if clinically warranted. Arterial sheath in position as described. Signed by: Dr. Ronna Bowen M.D. on 01/17/2018 7:39 AM Dictated By: RONNA BOWEN MD 8 Transcribed By: JESICA on 01/17/18738 COPY TO: ANUP TONY MD CHEST SINGLE (PORTABLE)2018-01-13 08:43:00 [place] [address] Patient Name: DIEUDONNE ALVAREZ MR #: [id number] : 1950 Age/Sex: 67/M Req #: [id number] Adm Physician: ALEXIA PERSON MD Ordered by: ANA DAVE NP Report #: [id number] Location: [facility]/SURG Room/Bed: [facility] Procedure: [id number] DX/CH EST SINGLE (PORTABLE) Exam Date: 01/13/18 Exam Time: 0620 REPORT STATUS: Signed EXAMINATION: CHEST SINGLE (PORTABLE) INDICATION: S CARDIAC HX. Arterial right lower extremity clot COM PARISON: Chest x-ray 01/12/2018 FINDINGS: AP view TUBES and L ELIZABETH: Left-sided pacemaker with 2 leads are intact. LUNGS: Lungs are well inflated. Lungs are clear. There is no evidence of pneumonia or pulmonary ed lawrence. PLEURA: No pleural effusion or pneumothorax. HEART AND MEDIASTIN UM: The cardiomediastinal silhouette is unremarkable. BONES AND SOFT T ISSUES: No acute osseous lesion. Soft tissues are unremarkable. UPPER A BDOMEN: No free air under the diaphragm. IMPRESSION: No acute thorac ic abnormality. Signed by: Dr. Tomás Chaney M.D. on 01/13/2018 8:48 AM Dictated By: TOMÁS CHANEY MD 7 Transcribed By: JESICA on 01/13/1848 COPY TO: ANA DAVE NP CHEST SINGLE (PORTABLE)2018-01-12 17:59:00 [place] [address] Patient Name: DIEUDONNE ALVAREZ MR #: [id number] : 1950 Age/Sex: 67/M Req #: [id number] [facility] Physician: ALEXIA WILSON MD Ordered by: ANA DAVE NP Report #: [id number] Location: [facility] Room/Bed: [facility]-2 Procedure: [id number] DX/CH EST SINGLE (PORTABLE) Exam Date: 01/12/18 Exam Time: 1710 REPORT STATUS: Signed EXAMINATION: CHEST SINGLE (PORTABLE) INDICATION: COMPARISON: Chest radiograph 02/15/2012 FINDINGS: AP view TUBES and LINES: 2-lead pacemaker overlying the left upper chest with leads overlying the right atrial appendage and right ventricle. LUNGS: Lungs are well inflated. Lungs are clear. There is no evidence of pneumonia or pulmonary edema. PLEURA: No pleural effusion or pneumothorax. HEART AND MEDIASTINUM: Mildly prominent cardiac silhouette, appears increased since last exam. BONES AND SOFT TISSUES: No acute osseous lesion. Soft tissues are unremarkable. UPPER ABDOMEN: No free air under the diaphragm. IMPRESSION: Prominent cardiac silhouette wi thout pulmonary decompensation. Signed by: Dr. Flakita Beal M.D. on 01/12/2018 6:01 PM Dictated By: FLAKITA BEAL MD Electr onically Signed By: FLAKITA BEAL MD on 01/12/181800 Transcribed By: JESICA on 01/12/181800 COPY TO: ANA DAVE NP
--- NOTE | 2018-06-14 13:03 | NUR ---
1303pm received in clinical laboratory assistant rec room #9, Identifierx2 ,Rt Fem. sheath in place no bleeding. Fem Pop no fix .Rt AKA Left pedal pulses present per Doppler. called into room for transfer to [facility] for Bilateral Fem. Pop bypass surgery evaluation by Dr Dallas. Silvana aware of POC.Dr Wolff spoke with MD Larry Hercules and Transfer Team notified. (Teo score 10/Rass 0 )Back to baseline orientation. PERRLA. Respiration shallow and regular 100% on room air PPx2 doppler to left leg only.Capillary refill at3 sec. Skin warm and dry integrity Iv #20 g infusing at left hand at 100 cc/hr via Iv controller. No s/s infiltration or complaints of infiltration or pain denies SOB or CP. Pt in paced rhythm.Pt denies necessity to defecate or urinate. No personal afects with pt.expt clothes and wheelchair. Intoduced self instructed to keep head down and right leg flat. Did order finger food tray. did assist and tolerated well. Call light at bedside with pvc monitor in place with vs monitoring q15min. astro technician Rolvidyaldo here and 20 min manual pressure applied and stasis achieved with dressing intact.
--- NOTE | 2018-06-14 15:00 | NUR ---
1500pm Spoke with Larry Hercules. TERE Villalpando states transfer center states bed still not available. MD frye will dom at 1600pm Nara Manzanarespharmacovigilance specialist director.Will be for updating on bed status . [facility] in [facility], Dr Dallas faxed copies of hx ,facesheet and orders by Larry supv. Copies for ambulance transport done. Awaiting bed availability to call report. Pt stable RT groin w/o s/s bleeding ,Pulses remain left leg Paced rhythm no c/o.Family back to waiting area. Tolerated po intake and voide d300cc ashley urine.
--- NOTE | 2018-06-14 16:05 | NUR ---
Dr Wolff reaching out to Dr Dallas service., again, regarding transferring pt to [facility], DR Dallas service/surgical consult.we are awaiting bed disposition for MD confirmation.
--- NOTE | 2018-06-14 18:15 | NUR ---
[address] [facility] Dr Stone accepting pt for consult cv surgery Dr Kellen Dallas Rock Fem pop evaluation. Rt AKA with rt groin sheath site stasis since pull 1330pm No signs of hematoma. or bleeding dressing intact. Left PP pulses present with doppler. Left hand iv on dial a flow 100cchr site w/o s/s infiltration. Pt had finger food and samwhich meal and tolerated w/o nausea. Void x2 300cc plus ashley urine. Denies co remain in town Name is [place] Cell is [phone]. House supv followed up transfer papers on arrival of ambulance to cardiac manufacturing laborer recovery rm #9. Pt with stable vs Paced rhythm approx 60 HR. No pain at this time CP or SOB. Remain room air with 99% O2 sats. Verbal [facility] to [facility]. She is staying with friend in town and ok to call if needed.No distress . (Teo 10/Rass score) Total sedation 25mg Fentanyl and 1 Versed and Iv remains 850cc NS with dial flow .no s/s infiltration. Dressing intact. Ambulane confirmed ETA.
--- NOTE | 2018-06-14 19:00 | NUR ---
1900pm Transport ambulance arrived to [facility] laboratory [facility] [place] #9 pt transported to [facility], [place] [id number]. Pt. on room air 99% sat. Rt groin dressing site dry and intact. left hand iv infusing NS at 100cchr NS 850 in bag. No s/s infiltration. Report given to ambulance Paramedics. Tele attached SR 70 Hr vs stable Denies discomfort Cp,SOB Rt amputee with w/c taken with . available on cell denies discomfort. subway train driver has dc paper and papers for transfer to Dr Stone and Dr Kellen Dallas service.
--- NOTE | 2018-06-26 23:20 | Operative Report ---
DATE OF PROCEDURE: 06/13/2018 SURGEON: Michi Wolff MD CARDIAC CATHETERIZATION REPORT INDICATION FOR PROCEDURE: Peripheral arterial disease and claudication. PREPROCEDURE ASSESSMENT: The patient's medical history, social history, imaging data, and prior experience with anesthesia was reviewed prior to the procedure. The patient was deemed to be an appropriate candidate for moderate sedation. Informed consent was obtained prior to the procedure and is documented in the medical record. MEDICATIONS: Please see nursing notes for medications administered during the procedure. PROCEDURES PERFORMED: 1. Abdominal aortography. 2. Third-order catheter placement. 3. Peripheral angiography of left lower extremity. PROCEDURE DETAILS: The patient was brought to the cardiac catheterization laboratory in a fasting state. Right groin was prepped and draped in a sterile fashion. Access of the right femoral artery was obtained using modified Seldinger under ultrasound guidance. A 6-Singaporean short sheath was inserted into right common femoral artery without complications. Abdominal aortography was performed using 5-Singaporean Omni Flush catheter. [place] Advantage wire was advanced into the contralateral iliac artery and Omni Flush catheter was advanced over the wire into the left common femoral artery. Selective peripheral angiography of the left lower extremity was performed with multiple views under digital subtraction imaging. This showed patent left external iliac stent and 100% occluded left common femoral artery stent with excellent reconstitution of the distal EXPRESSIVE ART THERAPIST and popliteal as well as 3-vessel distal runoff. RECOMMENDATIONS: Given high-grade claudication symptoms and rest pain being experienced by the patient, we will transfer the patient for left femoral popliteal bypass to be done at [facility]. Findings were discussed with the patient and the patient is agreeable. Michi Wolff MD KVP/MODL /[id number]
== END | disposition short-term general hospital (02) ==
LOC: CATH LAB 10:43
PROVIDERS: ATTEND Internal Medicine Interventional Cardiology
DX: I70.212 Atherosclerosis of native arteries of extremities with intermittent claudication, left leg (principal); Z95.820 Peripheral vascular angioplasty status with implants and grafts; I25.10 Atherosclerotic heart disease of native coronary artery without angina pectoris; Z95.0 Presence of cardiac pacemaker; I10 Essential (primary) hypertension; E78.00 Pure hypercholesterolemia, unspecified; F17.210 Nicotine dependence, cigarettes, uncomplicated; Z01.812 Encounter for preprocedural laboratory examination; Z89.611 Acquired absence of right leg above knee; Z79.02 Long term (current) use of antithrombotics/antiplatelets; Z79.82 Long term (current) use of aspirin
CPT/HCPCS: 36247; 36415; 75625; 75710; 80053; 80061; 85025; 85610; C1769; J1644; J2001; J2250; J7030; Q9967